=== PATIENT | male | born 1960 | race Caucasian/White ===

== ENCOUNTER 2017-10-19 07:23 | Inpatient (IN) | payer BC ==
[2017-10-19] MEDS ORDERED: IPRATROPIUM/ALBUTEROL 0.5-2.5 MG/3 ML AMPUL NEB ONE (07:38)
--- NOTE | 2017-10-19 07:44 | ER Document Report ---
ED Respiratory Problem - General Stated Complaint: BREATHING PROBLEMS Time Seen by Provider: 10/19/17 07:28 Mode of Arrival: Medic Information source: Patient - HPI Patient complains to provider of: Short of breath Notes: Patient is here with complaints of shortness of breath. Patient arrives via EMS while receiving a breathing treatment. Patient states that he has had a cough for approximately a week now. He is here for work. He states that he lives in [place]. He states that he has been seen in 2 other ERs throughout the week in [place] due to cough and shortness of breath. He states that he had a chest x-ray his last ER visit which she reports showed no acute findings. He was given a cough medicine. Patient denies any chest pain other than when he coughs. He complains of some left-sided abdominal pain where he has some bruising from coughing. He denies any trauma or injury to this area. He denies any nausea, vomiting, diarrhea. Reports that he may have had a fever over the last few days. He denies any chronic lung disease, or COPD. He does have a history of high cholesterol as well as hypertension. Is also supposed to be on a "water pill "that he cannot remember the name of that he has not been taking because he has been on the road and does not want to stop often to have to urinate. Patient was attempting to drive himself to the ER today, but states that he felt too bad so he called EMS. When EMS arrived, he was noted to have an O2 saturation of 86% on room air, he was given albuterol as well as a DuoNeb and Solu-Medrol. States that he is feeling better after these breathing treatments. He denies any cancer, leg pain, recent immobilization, history of DVT or PE. Patient denies any other complaints at this time. - Related Data Allergies/Adverse Reactions: No Known Allergies Allergy (Unverified 10/19/17 08:40) Past Medical History - Social History Smoking Status: Current Every Day Smoker Family History: Reviewed & Not Pertinent Review of Systems - Review of Systems -: Yes All other systems reviewed and negative Physical Exam - Vital signs Vitals: Pulse Ox 100 10/19/17 07:28 - Notes Notes: GENERAL: alert, cooperative, nontoxic, no distress. HEAD: normocephalic, atraumatic EYES: conjunctiva pink without discharge, no external redness or swelling. EARS: no external swelling, no external redness NOSE: atraumatic, no external swelling MOUTH/THROAT: mucous membranes moist and pink, posterior pharynx without erythema, swelling, exudate. No trismus or drooling. NECK: soft, supple, full range of motion, no meningismus. CHEST: Mild tachypnea, increased work of breathing. Expiratory wheezing with fair air movement throughout. CARDIAC: regular rate and rhythm, no murmur, normal capillary refill, normal pulses. Pitting edema to the bilateral lower extremities. No redness, no tenderness. ABDOMEN: Soft, nontender. Petechiae and old bruising noted to the left side of his abdomen. Minimal tenderness. BACK: full range of motion, no CVA tenderness. EXTREMITIES: full range of motion of all extremities. Pitting edema to the lower extremities. NEURO: alert and oriented x 3, no focal deficits, full range of motion of all extremities. PYSCH: appropriate mood, affect. Patient is cooperative. SKIN: pink, warm, dry, no rash. Course - Re-evaluation Re-evalutation: 10/19/17 10:48 Patient is nontoxic appearing. The patient has had a cough for about a week now and arrives via EMS with complaints of shortness of breath. According to EMS report, the patient was hypoxic at 85 on their arrival. He arrives here on oxygen getting breathing treatments. He has been satting in the mid 90s on 2 L nasal cannula since being in the emergency department. States that he is feeling better at this time. Scant white count of 13. Remainder of his labs are unremarkable. Lactate is normal. Heart rate and blood pressure a bit stabilized been in the emergency department. Chest x-ray shows a large left pleural effusion. Patient was noted to have some bruising and ecchymosis to the left lateral chest and left side of his abdomen. He denies any fall or injury. Due to the fact that he has this bruising with a large pleural effusion , a CT of the chest abdomen pelvis was ordered. Abdomen and pelvis are unremarkable. Chest shows a pneumonia with large pleural effusion and a soft tissue mass between the pleural tissue and chest wall. I discussed this with the radiologist, she does not believe that this is blood or hemorrhage. Patient was given Zithromax and Rocephin. Blood cultures have been obtained. This point the patient will be admitted to the hospital for further evaluation and contacted the hospitalist, I am awaiting a return phone call for acceptance. 10/19/17 11:08 Patient accepted by hospitalist for admission. - Vital Signs Vital signs: Temp Pulse Resp BP Pulse Ox 17 142/70 H 94 10/19/17 10:02 10/19/17 10:02 10/19/17 10:02 - Laboratory Result Diagrams: 10/19/17 07:45 10/19/17 07:45 Laboratory results interpreted by me: 10/19/17 10/19/17 07:45 07:45 WBC 13.6 H Absolute Neutrophils 9.4 H Absolute Monocytes 1.5 H Chloride 94 L Carbon Dioxide 39 H Glucose 129 H - Diagnostic Test Radiology reviewed: Image reviewed, Reports reviewed - Chest x-ray shows large pleural effusion on the left. CT chest abdomen pelvis shows pneumonia with large pleural effusion and soft tissue mass in the left pleural space. - EKG Interpretation by Me EKG shows normal: [place], Intervals, QRS Complexes, ST-T Waves Rate: Tachycardia When compared to previous EKG there are: Previous EKG unavailable Discharge - Discharge Clinical Impression: Pleural effusion, Hypoxia Pneumonia Qualifiers: Pneumonia type: due to unspecified organism Laterality: left Lung location: lower lobe of lung Qualified Code(s): J18.1 - Lobar pneumonia, unspecified organism Condition: Serious Disposition: ADMITTED INPATIENT Admitting Provider: Hospitalist - dr justo dunn Unit Admitted: Telemetry
--- NOTE | 2017-10-19 07:48 | EKG REPORT ---
SEVERITY:- OTHERWISE NORMAL ECG - SINUS TACHYCARDIA : Confirmed by: Miles Young MD 19-Oct-2017 07:47:37
--- NOTE | 2017-10-19 08:02 | RADIOLOGY REPORT (SQ) ---
EXAM DESCRIPTION: CHEST SINGLE VIEW CLINICAL HISTORY: 56 years Male, cough, sob, hypoxia, wheezing COMPARISON: None. NUMBER OF VIEWS/TECHNIQUE: 1/AP LIMITATIONS: None. FINDINGS: Moderate opacification of the left lower and mid hemithorax, small left aerated lung volume, normal cardiac silhouette, and intact bony thorax. IMPRESSION: Large left lower hemithoracic pneumonia/effusion.
[2017-10-19 08:10] LABS: ABSOLUTE BASOPHILS # (AUTO) 0.1 10^3/uL (0.0-0.2); ABSOLUTE EOSINOPHILS # (AUTO) 0.1 10^3/uL (0.0-0.6); ABSOLUTE LYMPHOCYTES (AUTO) 2.6 10^3/uL (0.5-4.7); ABSOLUTE MONOCYTES (AUTO) 1.5 10^3/uL (0.1-1.4); ABSOLUTE NEUT (AUTO) 9.4 10^3/uL (1.7-8.2); BASOPHILS % (AUTO) 0.4 % (0-2); EOSINOPHILS % (AUTO) 0.4 % (0-6); HEMATOCRIT 41.5 % (37.9-51.0); HEMOGLOBIN 13.8 g/dL (13.5-17.0); LYMPHOCYTES % (AUTO) 19.3 % (13-45); MEAN CORPUSCULAR HEMOGLOBIN 27.6 pg (27.0-33.4); MEAN CORPUSCULAR HGB CONC 33.2 g/dL (32.0-36.0); MEAN CORPUSCULAR VOLUME 83 fl (80-97); PLATELET COUNT 338 10^3/uL (150-450); RED CELL DISTRIBUTION WIDTH 13.8 % (11.5-14.0); SEGMENTED NEUTROPHILS % (AUTO) 68.9 % (42-78); TOTAL CELLS COUNTED % (AUTO) 100 %; WHITE BLOOD COUNT 13.6 10^3/uL (4.0-10.5)
[2017-10-19 08:11] LABS: ALANINE AMINOTRANSFERASE 59 U/L (21-72); ALBUMIN 3.5 g/dL (3.5-5.0); ALKALINE PHOSPHATASE 88 U/L (38-126); ASPARTATE AMINO TRANSFERASE 19 U/L (17-59); BILIRUBIN,DIRECT 0.2 mg/dL (0.0-0.4); BILIRUBIN,TOTAL 0.5 mg/dL (0.2-1.3); BLOOD UREA NITROGEN 16 mg/dL (7-20); CALCIUM 9.1 mg/dL (8.4-10.2); CHLORIDE 94 mmol/L (98-107); GLUCOSE 129 mg/dL (75-110); POTASSIUM 4.3 mmol/L (3.6-5.0); SODIUM 140.1 mmol/L (137-145); TOTAL PROTEIN 6.5 g/dL (6.3-8.2)
[2017-10-19] MEDS ORDERED: CEFTRIAXONE 1 GM/D5W RTU 50 ML IV ONE (08:14)
[2017-10-19] MEDS ORDERED: AZITHROMYCIN INJ 500 MG VIAL IV ONE (08:15)
[2017-10-19 08:19] LABS: ANION GAP 7 (5-19); CARBON DIOXIDE 39 mmol/L (22-30)
[2017-10-19 08:36] LABS: NT PRO BNP 41 pg/mL (5-900)
[2017-10-19 08:37] LABS: TROPONIN I < 0.012 ng/mL
[2017-10-19] MEDS ORDERED: CEFTRIAXONE INJ 1000 MG VIAL IV ONE (09:00)
--- NOTE | 2017-10-19 10:02 | RADIOLOGY REPORT (SQ) ---
EXAM DESCRIPTION: CT CHEST WITH; CT ABD/PELVIS WITH IV ONLY COMPLETED DATE/TIME: 10/19/2017 9:28 am REASON FOR STUDY: sob, left cp, abnorm cxr COMPARISON: AP chest 10/19/2017 CONTRAST TYPE AND DOSE: contrast/concentration: Isovue 370.00 mg/ml; Total Contrast Delivered: 98.9 ml; Total Saline Delivered: 48.1 ml RENAL FUNCTION: Creatinine 0.93 TECHNIQUE: CT scan of the chest performed using helical scanning technique with dynamic intravenous contrast injection. Images reviewed with lung, soft tissue and bone windows. Reconstructed coronal a nd sagittal MPR images reviewed. All images stored on PACS. CT scan of the abdomen and pelvis performed with intravenous and without oral contrastusing helical s rafa technique with dynamic intravenous contrast injection. Images reviewed with lung, soft tissu e and bone windows. Reconstructed coronal and sagittal MPR images reviewed. Delayed images for eval uation of the urinary system also acquired and evaluated. All images stored on PACS. All CT scanners at this facility use dose modulation, iterative reconstruction, and/or weight based d osing when appropriate to reduce radiation dose to as low as reasonably achievable (ALARA). [facility]: Dose Right [facility]: CareDose [facility]: Dose Right [facility]: Teradose 4D [facility]: [employer] RADIATION DOSE: CT Rad equipment meets quality standard of care and radiation dose reduction techniq ues were employed. CTDIvol: 21.1 mGy. DLP: 2714 mGy-cm. . LIMITATIONS: None. FINDINGS: CHEST: LUNGS AND PLEURA: A moderate-sized left pleural effusion is present with left lower lobe collapse and consolidation, atelectasis versus pneumonia. In the left lateral costophrenic sulcus anterior edge, a 5 x 5 cm soft tissue mass is present on axia l image 17 and coronal image 55. This mass extends into the soft tissues between the anterior left 6 th and 7th ribs. Right hemithorax unremarkable. HILAR AND MEDIASTINAL STRUCTURES: No identified masses or abnormal nodes. HEART AND VASCULAR STRUCTURES: No aneurysm or dissection. No central pulmonary emboli. No pericardi al effusion. HARDWARE: None. THYROID AND OTHER SOFT TISSUES: No masses. No adenopathy. BONES: No significant finding. OTHER: No other significant finding. ABDOMEN AND PELVIS: LIVER: Normal size. No masses. No dilated ducts. Diffuse fatty infiltration SPLEEN: Normal size. No focal lesions. PANCREAS: No masses. No significant calcifications. No adjacent inflammation or peripancreatic fluid collections. Pancreatic duct not dilated. GALLBLADDER: No identified stones by CT criteria. No inflammatory changes to suggest cholecystitis. ADRENAL GLANDS: No significant masses or asymmetry. RIGHT KIDNEY AND URETER: No solid masses. 5 cm right upper pole renal cortical cyst. Yonis 5 mm rig ht lower pole intrarenal nonobstructive stone. No hydronephrosis or hydroureter. LEFT KIDNEY AND URETER: No solid masses. 4 to 5 mm left lower pole intrarenal nonobstructive stone. No hydronephrosis or hydroureter. AORTA AND VESSELS: No aneurysm. No dissection. Renal arteries, SMA, celiac without stenosis. RETROPERITONEUM: No retroperitoneal adenopathy, hemorrhage or masses. BOWEL AND PERITONEAL CAVITY: No masses or inflammatory changes. No free fluid or peritoneal masses. APPENDIX: Normal. ABDOMINAL WALL: No masses. No hernias. PELVIS: No mass or free fluid. Normal bladder. BONES: No significant or acute findings. OTHER: No other significant finding. IMPRESSION: Moderate-sized left pleural effusion Left lower lobe collapse and consolidation Mass along the left lateral costophrenic sulcus Fatty liver Bilateral intrarenal nonobstructive kidney stones. NORMAL CT OF THE ABDOMEN AND PELVIS WITH ORAL AND INTRAVENOUS CONTRAST. TECHNICAL DOCUMENTATION: JOB ID: [id number] Quality ID # [id number]: Final reports with documentation of one or more dose reduction techniques (e.g., Au tomated exposure control, adjustment of the mA and/or kV according to patient size, use of iterative reconstruction technique) 2010 [employer]- All Rights Reserved Reading location - IP/workstation name: [facility]
[2017-10-19 11:31] LABS: INTERNATIONAL RATION (INR) 0.95; PROTHROMBIN TIME 13.1 SEC (11.4-15.4)
[2017-10-19 11:32] LABS: PARTIAL THROMBOPLASTIN TIME 30.5 SEC (23.5-35.8)
[2017-10-19] MEDS ORDERED: LEVALBUTEROL HCL NEB 0.63 MG/3 ML AMPUL NEB PRN (12:14)
[2017-10-19] MEDS ORDERED: ACETAMINOPHEN 325 MG TABLET PO PRN (12:14)
[2017-10-19] MEDS ORDERED: ONDANSETRON 4 MG TAB.RAPDIS PO PRN (12:14)
--- NOTE | 2017-10-19 12:36 | PDOC H&P ---
History of Present Illness Admission Date/PCP: 10/19/17 11:11 PCP: Dr. Gaines in [place] Patient complains of: Shortness of breath History of Present Illness: The patient is a 56-year-old gentleman with past medical history of Hypertension Hyperlipidemia He is a traveling construction laborer. He presented to the emergency room today complaining of worsening shortness of breath over the past 1 week. He has been coughing up yellowish green phlegm. Denies hemoptysis or recent weight loss. He has been treated to hospitals in the past week. The patient was evaluated at [facility] and received and took a course of antibiotics and cough suppressants. He became more short of breath today and EMS was called he was found to have sats of 85% was wheezing. He was treated with duo nebs and steroids and brought to the emergency room. Chest x-ray showed a large left-sided pleural effusion. CAT scan of the chest abdomen and pelvis was done. Left-sided pleural-based mass was seen along with a large left pleural effusion and left lower lobe lung collapse. He also has leukocytosis. He was treated with Rocephin and azithromycin and referred for admission. Denies sick contacts or exposure to tuberculosis in the past. He quit smoking approximately 30 years ago. Drinks occasional alcohol no illicit drug use. Outpatient medications: Lovastatin 20 mg daily Lisinopril 15 mg daily Multivitamin Vitamin D Aspirin 81 mg daily He wishes to be a full code. Healthcare power of relay engineer is his son Mr. Osiel Luciano phone #[phone]. He says he is allergic to penicillin it made him vomit as a child. No anaphylaxis Past Medical History Cardiac Medical History: Reports: Hyperlipidema, Hypertension Social History Smoking Status: Former Smoker Frequency of Alcohol Use: Occasional Drugs: None Hx Prescription Drug Abuse: No - Advance Directive Resuscitation Status: Full Code Family History Family History: Hypertension Parental Family History Reviewed: Yes Children Family History Reviewed: Yes Sibling(s) Family History Reviewed.: Yes Medication/Allergy Home Medications: Unobtainable [Unobtainable] 10/19/17 Allergies/Adverse Reactions: No Known Allergies Allergy (Unverified 10/19/17 08:40) Review of Systems Constitutional: PRESENT: fever(s). ABSENT: headache(s) Eyes: ABSENT: visual disturbances Ears: ABSENT: hearing changes Nose, Mouth, and Throat: ABSENT: sore throat Cardiovascular: PRESENT: dyspnea on exertion, edema. ABSENT: chest pain, palpitations Respiratory: PRESENT: cough, dyspnea. ABSENT: hemoptysis Gastrointestinal: ABSENT: abdominal pain, diarrhea, vomiting Genitourinary: ABSENT: dysuria Musculoskeletal: ABSENT: deformity Integumentary: ABSENT: rash Neurological: ABSENT: focal weakness Psychiatric: ABSENT: hallucinations Endocrine: ABSENT: heat intolerance Hematologic/Lymphatic: ABSENT: easy bruising Allergic/Immunologic: ABSENT: seasonal rhinorrhea Physical Exam Vital Signs: Temp Pulse Resp BP Pulse Ox 19 153/83 H 93 10/19/17 11:01 10/19/17 11:01 10/19/17 11:01 General appearance: PRESENT: obese Head exam: PRESENT: normocephalic Eye exam: PRESENT: PERRLA. ABSENT: scleral icterus Ear exam: PRESENT: normal external ear exam Mouth exam: PRESENT: moist Neck exam: ABSENT: tenderness, thyromegaly Respiratory exam: PRESENT: decreased breath sounds, rhonchi, symmetrical, unlabored Cardiovascular exam: PRESENT: RRR GI/Abdominal exam: PRESENT: normal bowel sounds, soft. ABSENT: tenderness Rectal exam: PRESENT: deferred Extremities exam: PRESENT: pedal edema. ABSENT: calf tenderness Musculoskeletal exam: PRESENT: normal inspection Neurological exam: PRESENT: alert, awake, oriented to person, oriented to place , oriented to time, oriented to situation Psychiatric exam: PRESENT: appropriate affect Skin exam: ABSENT: petechiae Results Impressions: Chest X-Ray 10/19/17 07:38 IMPRESSION: Large left lower hemithoracic pneumonia/effusion. Chest CT 10/19/17 08:04 IMPRESSION: Moderate-sized left pleural effusion Left lower lobe collapse and consolidation Mass along the left lateral costophrenic sulcus Fatty liver Bilateral intrarenal nonobstructive kidney stones. NORMAL CT OF THE ABDOMEN AND PELVIS WITH ORAL AND INTRAVENOUS CONTRAST. Abdomen/Pelvis CT 10/19/17 08:05 IMPRESSION: Moderate-sized left pleural effusion Left lower lobe collapse and consolidation Mass along the left lateral costophrenic sulcus Fatty liver Bilateral intrarenal nonobstructive kidney stones. NORMAL CT OF THE ABDOMEN AND PELVIS WITH ORAL AND INTRAVENOUS CONTRAST. Assessment & Plan - Diagnosis (1) Pleural effusion Is this a current diagnosis for this admission?: Yes Plan: Large left pleural effusion. ? parapneumonic vs malignant. Pulmonology consult. He will need a thoracentesis with Gram stain culture and cytology. He has been started on antibiotics. (2) Hypoxia Is this a current diagnosis for this admission?: Yes Plan: Due to pleural effusion and pneumonia. Supplemental oxygen. (3) Pneumonia Qualifiers: Pneumonia type: due to unspecified organism Laterality: left Lung location: lower lobe of lung Qualified Code(s): J18.1 - Lobar pneumonia, unspecified organism Is this a current diagnosis for this admission?: Yes Plan: Sputum cultures. Levaquin and Rocephin. (4) Hypertension Is this a current diagnosis for this admission?: Yes Plan: Continue lisinopril. (5) Hyperlipidemia Is this a current diagnosis for this admission?: Yes Plan: Continue lovastatin and aspirin - Time Time Spent: Greater than 70 Minutes - Inpatient Certification Medical Necessity: Need for IV Antibiotics, Risk of Complication if Not Cared For in Hospital
[2017-10-19 13:23] LABS: APPEARANCE,URINE CLEAR; BILIRUBIN,URINE NEGATIVE (NEGATIVE); COLOR,URINE YELLOW; GLUCOSE, URINE NEGATIVE (NEGATIVE); KETONES,URINE NEGATIVE (NEGATIVE); LEUKOCYTE ESTERASE,URINE NEGATIVE (NEGATIVE); NITRITE,URINE NEGATIVE (NEGATIVE); PROTEIN,URINE NEGATIVE (NEGATIVE); URINE SPECIFIC GRAVITY 1.027; UROBILINOGEN,URINE NEGATIVE mg/dL (<2.0)
[2017-10-19] MEDS ORDERED: LEVOFLOXACIN 750 MG TABLET PO ONE (13:30)
[2017-10-19 13:55] LABS: URINE AMPHETAMINES SCREEN NEGATIVE; URINE BARBITURATES SCREEN NEGATIVE; URINE BENZODIAZEPINES SCREEN NEGATIVE; URINE COCAINE SCREEN NEGATIVE; URINE MARIJUANA (THC) SCREEN NEGATIVE; URINE METHADONE SCREEN NEGATIVE; URINE PHENCYCLIDINE SCREEN NEGATIVE
[2017-10-19] MEDS: LEVALBUTEROL HCL NEB 1.25 MG/3 ML AMPUL NEB SCH ×2 (14:20→19:57)
[2017-10-19] MEDS ORDERED: LIDOCAINE 1% INJ-PF (10 MG/ML) 30 ML SDV ONE (15:34)
--- NOTE | 2017-10-19 16:29 | RADIOLOGY REPORT (SQ) ---
EXAM DESCRIPTION: CHEST SINGLE VIEW COMPLETED DATE/TIME: 10/19/2017 4:16 pm REASON FOR STUDY: S/P LT THORACENTESIS COMPARISON: CT chest abdomen pelvis 10/19/2017 EXAM PARAMETERS: NUMBER OF VIEWS: One view. TECHNIQUE: Single frontal radiographic view of the chest acquired. RADIATION DOSE: NA LIMITATIONS: None. FINDINGS: LUNGS AND PLEURA: This film is immediately post thoracentesis left chest with removal of 7 00 mL of bloody fluid. No pneumothorax. Left lower lobe consolidation atelectasis versus pneumonia. Right hemithorax unremarkable. MEDIASTINUM AND HILAR STRUCTURES: No masses. Contour normal. HEART AND VASCULAR STRUCTURES: Moderate cardiomegaly BONES: No acute findings. HARDWARE: None in the chest. OTHER: No other significant finding. IMPRESSION: This film is post left thoracentesis with removal of 700 mL of bloody fluid from the lef t chest. No pneumothorax. Left lower lobe consolidation atelectasis versus pneumonia. TECHNICAL DOCUMENTATION: JOB ID: [id number] [employer]- All Rights Reserved Reading location - IP/workstation name: [email or web address]
--- NOTE | 2017-10-19 16:32 | RADIOLOGY REPORT (SQ) ---
EXAM DESCRIPTION: U/S THORACENTESIS WITH IMAGING COMPLETED DATE/TIME: 10/19/2017 4:23 pm REASON FOR STUDY: L pleural effusion COMPARISON: CT chest abdomen and pelvis 10/19/2017 LIMITATIONS: None. PROCEDURE: Procedure, risks, benefit, and alternative explained to patient who then gave written con sent. The posterior left chest wall was marked using ultrasound guidance. A time-out was called for correct marking verification. Chest prepped and draped using sterile technique. Local anesthesia ac hieved using 9 ml of 1% lidocaine injection. A 6fr Safe-T- Centesis set was introduced into the left pleural space. Fluid was aspirated. The catheter was removed and the entry site was covered with s terile bandage. No immediate complications noted. Fluid was sent for testing as per Dr. Wright. Po st procedure chest x-ray was obtained, demonstrating no pneumothorax. This is dictated separately. Images acquired during the procedure were stored on PACS. FINDINGS: ENTRY SITE: Left posterior chest FLUID VOLUME: 700 mL FLUID ANALYSIS: Bloody fluid sent for testing OTHER: No pneumothorax on post procedure chest x-ray dictated separately IMPRESSION: SUCCESSFUL THORACENTESIS USING ULTRASOUND GUIDANCE. COMMENT: Patient medication list reviewed: Yes- Quality ID# [id number]:Eligible professional attests to doc umenting in the medical record they obtained, updated, or reviewed the patient's current medications. TECHNICAL DOCUMENTATION: JOB ID: [id number] [employer]- All Rights Reserved Reading location - IP/workstation name: [email or web address]
[2017-10-19 17:25] LABS: FLUID COLOR RED; FLUID TYPE PLEURAL; FLUID VISCOSITY LIQUID
--- NOTE | 2017-10-19 17:47 | PDOC CONSULTATION ---
Consultation Consult Date: 10/19/17 Attending physician:: MARIETTA ROBLES Consult reason:: l pleural effusion /l lung mass History of Present Illness Admission Date/PCP: 10/19/17 11:11 History of Present Illness: NATALIE HERNANDEZ is a 56 year old male Subsequently found to have a large left-sided pleural effusionPresents to the ED with increasing shortness of breath as well as a soft tissue mass patient's illness was preceded by multiple hospitalizations since several surgeries for shortness of breath he was told he had a normal chest x-ray and was given cough medicine and sent on how this time he presented the emergency room with increasing cough productive of yellow phlegm and increasing shortness of breath at this time of his presentation he was hypoxemic and was started on oxygen. Agustín. 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 He has no pets and frequently travels around the [facility]. He denies angina-like chest pain however he says for the last 3 or 4 years slept upright in a recliner he denies PND but admits to occasional nocturnal cough and chronic edema he has admits to snoring restless sleep nocturia 3-4 times per night unrestful sleep and excessive daytime somnolence Past Medical History Cardiac Medical History: Reports: Hyperlipidema, Hypertension Denies: Atrial Fibrillation, Pulmonary Embolism Pulmonary Medical History: Denies: Asthma, Intubation EENT Medical History: Denies: Cataracts, Ears, Nose Neurological Medical History: Denies: Multiple Sclerosis, Seizures Endocrine Medical History: Reports: Obesity Denies: Diabetes Mellitus Type 1, Diabetes Mellitus Type 2, Hyperthyroidism, Hypothyroidism Renal/ Medical History: Reports: Nephrolithiasis Denies: End Stage Renal Disease Malignancy Medical History: Denies: Liver Cancer, Lung Cancer GI Medical History: Denies: Cirrhosis, Crohn's Disease, Hepatitis, Peptic Ulcer Disease, Ulcerative Colitis Musculoskeltal Medical History: Denies: Fibromyalgia Psychiatric Medical History: Denies: Dementia, Depression Traumatic Medical History: Denies: Gunshot Wound, Stab Wound, Traumatic Brain Injury Hematology: Denies: Hemophilia, Sickle Cell Disease Infectious Medical History: Denies: HIV Social History Information Source: Patient, [facility] Records 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 Smoking Status: Current Every Day Smoker Cigarettes Packs Per Day: 1.5 Number of Years Smokin Passive smoke exposure as: Both Hx Recreational Drug Use: No Hx Prescription Drug Abuse: No Do you have pets?: No Have you had any respiratory illnesses as a child?: No Have you been exposed to any sick contacts recently?: No Have you had any recent respiratory illnesses?: Yes Have you travelled outside of [place] in the past 12 months?: Yes Family History Family History: CAD, Hyperlipidemia, Hypertension, Malignancy Parental Family History Reviewed: Yes Children Family History Reviewed: Yes Sibling(s) Family History Reviewed.: Yes Medication/Allergy Home Medications: Aspirin [Ecotrin 81 mg EC Tablet] 81 mg PO DAILY 10/19/17 Cholecalciferol (Vitamin D3) [Vitamin D3] 2,000 unit PO DAILY 10/19/17 Lisinopril [Prinivil] 20 mg PO DAILY 10/19/17 Lovastatin [Mevacor] 20 mg PO DAILY 10/19/17 Multivitamin [Tab-A-Ana (Multiple Vitamin) Tablet] 1 tab PO DAILY 10/19/17 Allergies/Adverse Reactions: No Known Allergies Allergy (Unverified 10/19/17 08:40) Review of Systems Constitutional: PRESENT: weight gain. ABSENT: anorexia, chills, fatigue, fever( s), headache(s), weakness Eyes: ABSENT: visual disturbances Ears: ABSENT: hearing changes Nose, Mouth, and Throat: ABSENT: mouth pain, sore throat Cardiovascular: PRESENT: edema, orthropnea. ABSENT: palpitations Respiratory: PRESENT: cough, dyspnea. ABSENT: hemoptysis Gastrointestinal: ABSENT: abdominal pain, bloating, dysphagia, heartburn, melena Genitourinary: PRESENT: nocturia. ABSENT: dysuria, hematuria Musculoskeletal: ABSENT: deformity, joint swelling Integumentary: ABSENT: pruritus, rash Neurological: ABSENT: abnormal gait, abnormal movements, abnormal speech, confusion, focal weakness, frequent falls, lack of coordination, memory loss Psychiatric: ABSENT: hallucinations, homidical ideation, suicidal ideation Endocrine: ABSENT: cold intolerance, heat intolerance, polydipsia, polyuria Hematologic/Lymphatic: ABSENT: easy bruising Allergic/Immunologic: PRESENT: seasonal rhinorrhea Physical Exam Vital Signs: Temp Pulse Resp BP Pulse Ox 19 153/83 H 93 10/19/17 11:01 10/19/17 11:01 10/19/17 11:01 General appearance: PRESENT: no acute distress, cooperative, disheveled, morbidly obese Head exam: PRESENT: atraumatic, normocephalic Eye exam: PRESENT: conjunctiva pale. ABSENT: nystagmus, periorbital swelling, scleral icterus Mouth exam: PRESENT: dry mucosa, neck supple, tongue midline Neck exam: ABSENT: carotid bruit, JVD, lymphadenopathy, thyromegaly, tracheal deviation, tracheostomy Respiratory exam: PRESENT: chest wall tenderness - Left lateral chest wall there is some ecchymosis, decreased breath sounds, prolonged expiratory phas, rales, rhonchi, unlabored, wheezes. ABSENT: retraction, stridor, tachypnea Cardiovascular exam: PRESENT: RRR, +S1, +S2, tachycardia Pulses: PRESENT: normal radial pulses GI/Abdominal exam: PRESENT: diminished bowel sounds, soft Extremities exam: PRESENT: other - Pretibial and pedal edema+4. ABSENT: clubbing, joint swelling Musculoskeletal exam: ABSENT: deformity, dislocation Neurological exam: PRESENT: alert, awake Skin exam: PRESENT: dry, warm Results Impressions: Chest X-Ray 10/19/17 07:38 IMPRESSION: Large left lower hemithoracic pneumonia/effusion. Chest CT 10/19/17 08:04 IMPRESSION: Moderate-sized left pleural effusion Left lower lobe collapse and consolidation Mass along the left lateral costophrenic sulcus Fatty liver Bilateral intrarenal nonobstructive kidney stones. NORMAL CT OF THE ABDOMEN AND PELVIS WITH ORAL AND INTRAVENOUS CONTRAST. Abdomen/Pelvis CT 10/19/17 08:05 IMPRESSION: Moderate-sized left pleural effusion Left lower lobe collapse and consolidation Mass along the left lateral costophrenic sulcus Fatty liver Bilateral intrarenal nonobstructive kidney stones. NORMAL CT OF THE ABDOMEN AND PELVIS WITH ORAL AND INTRAVENOUS CONTRAST. Assessment & Plan - Diagnosis (1) Uncontrolled daytime somnolence Is this a current diagnosis for this admission?: Yes Plan: Will need to have a sleep study scheduled at the time of discharge (2) Sleeps in sitting position due to orthopnea Is this a current diagnosis for this admission?: Yes Plan: MUGA study as I do not believe body habitus will permit good acoustic windows for an echocardiogram (3) Hypertension Is this a current diagnosis for this admission?: Yes (4) Hypoxia Is this a current diagnosis for this admission?: Yes Plan: Supplemental oxygen (5) Pleural effusion Is this a current diagnosis for this admission?: Yes Plan: Thoracentesis has been requested ultrasound guidance (6) Pneumonia Qualifiers: Pneumonia type: due to unspecified organism Laterality: left Lung location: lower lobe of lung Qualified Code(s): J18.1 - Lobar pneumonia, unspecified organism Is this a current diagnosis for this admission?: Yes (7) Soft tissue mass Is this a current diagnosis for this admission?: Yes Plan: Consider CT-guided needle biopsy
[2017-10-19] MEDS: LACTOBACILLUS ACIDOPHILUS 250 MG TAB PO SCH (18:24)
--- NOTE | 2017-10-19 18:44 | RADIOLOGY REPORT (SQ) ---
EXAM DESCRIPTION: CHEST SINGLE VIEW COMPLETED DATE/TIME: 10/19/2017 6:22 pm REASON FOR STUDY: S/P LT THORACENTESIS- 2 HOUR FILM COMPARISON: 10/19/2017 at 1612 hours. EXAM PARAMETERS: NUMBER OF VIEWS: One view. TECHNIQUE: Single frontal radiographic view of the chest acquired. RADIATION DOSE: NA LIMITATIONS: None. FINDINGS: LUNGS AND PLEURA: No pneumothorax 2 hours after thoracentesis. Left pleural effusion with left basilar density unchanged. Right lung clear. MEDIASTINUM AND HILAR STRUCTURES: No masses. Contour normal. HEART AND VASCULAR STRUCTURES: Heart normal in size. Normal vasculature. BONES: No acute findings. HARDWARE: None in the chest. OTHER: No other significant finding. IMPRESSION: STABLE APPEARANCE OF THE CHEST. NO PNEUMOTHORAX 2 HOURS AFTER THORACENTESIS. TECHNICAL DOCUMENTATION: JOB ID: [id number] [employer]- All Rights Reserved Reading location - IP/workstation name: [email or web address]
[2017-10-19] MEDS: FAMOTIDINE 20 MG TABLET PO SCH (21:00)
[2017-10-19] MEDS: GUAIFENESIN 600 MG TABLET.SA PO SCH (21:00)
[2017-10-20 06:42] LABS: ABSOLUTE BASOPHILS # (AUTO) 0.1 10^3/uL (0.0-0.2); ABSOLUTE LYMPHOCYTES (AUTO) 2.2 10^3/uL (0.5-4.7); ABSOLUTE MONOCYTES (AUTO) 1.4 10^3/uL (0.1-1.4); ABSOLUTE NEUT (AUTO) 10.2 10^3/uL (1.7-8.2); BASOPHILS % (AUTO) 0.8 % (0-2); EOSINOPHILS % (AUTO) 0.2 % (0-6); HEMATOCRIT 38.3 % (37.9-51.0); HEMOGLOBIN 12.7 g/dL (13.5-17.0); LYMPHOCYTES % (AUTO) 15.6 % (13-45); MEAN CORPUSCULAR HEMOGLOBIN 27.4 pg (27.0-33.4); MEAN CORPUSCULAR HGB CONC 33.1 g/dL (32.0-36.0); MEAN CORPUSCULAR VOLUME 83 fl (80-97); MONOCYTES % (AUTO) 10.2 % (3-13); PLATELET COUNT 312 10^3/uL (150-450); RED BLOOD COUNT 4.63 10^6/uL (4.35-5.55); RED CELL DISTRIBUTION WIDTH 13.9 % (11.5-14.0); SEGMENTED NEUTROPHILS % (AUTO) 73.2 % (42-78); TOTAL CELLS COUNTED % (AUTO) 100 %
[2017-10-20 07:04] LABS: ALANINE AMINOTRANSFERASE 50 U/L (21-72); ALBUMIN 3.4 g/dL (3.5-5.0); ALKALINE PHOSPHATASE 70 U/L (38-126); ANION GAP 7 (5-19); ASPARTATE AMINO TRANSFERASE 19 U/L (17-59); BILIRUBIN,DIRECT 0.3 mg/dL (0.0-0.4); BILIRUBIN,TOTAL 0.6 mg/dL (0.2-1.3); BLOOD UREA NITROGEN 19 mg/dL (7-20); CALCIUM 8.9 mg/dL (8.4-10.2); CARBON DIOXIDE 36 mmol/L (22-30); CHLORIDE 96 mmol/L (98-107); CHOLESTEROL 150.58 mg/dL (0-200); GLUCOSE 116 mg/dL (75-110); PHOSPHORUS 4.2 mg/dL (2.5-4.5); POTASSIUM 4.5 mmol/L (3.6-5.0); SODIUM 138.8 mmol/L (137-145); TOTAL PROTEIN 6.3 g/dL (6.3-8.2); TRIGLYCERIDES 71 mg/dL (<150)
[2017-10-20 07:15] LABS: DIRECT LDL 93 mg/dL (<100)
[2017-10-20] MEDS: LEVALBUTEROL HCL NEB 1.25 MG/3 ML AMPUL NEB SCH ×3 (09:15→20:50)
[2017-10-20] MEDS: LEVALBUTEROL HCL NEB 1.25 MG/3 ML AMPUL NEB PRN (09:15)
[2017-10-20] MEDS ORDERED: CEFTRIAXONE 1 GM/D5W RTU 1 GM/50 ML RTUPB IV SCH (10:00)
[2017-10-20 10:05] LABS: ARTERIAL BLOOD BASE EXCESS 11.6 mmol/L; ARTERIAL BLOOD HCO3 38.3 mmol/L (20-26); ARTERIAL BLOOD O2 SATURATION 95.3 % (94-98); ARTERIAL BLOOD PCO2 59.7 mmHg (35-45); ARTERIAL BLOOD PH 7.43 (7.35-7.45); ARTERIAL BLOOD PO2 77.2 mmHg (80-100); ARTERIAL BLOOD TOTAL CO2 40.1 mmol/L (23-27)
[2017-10-20 10:07] LABS: ARTERIAL BLOOD FIO2 4L
--- NOTE | 2017-10-20 10:18 | RADIOLOGY REPORT (SQ) ---
EXAM DESCRIPTION: CHEST SINGLE VIEW COMPLETED DATE/TIME: 10/20/2017 9:51 am REASON FOR STUDY: L lung mass COMPARISON: 10/19/2017 NUMBER OF VIEWS: One view. TECHNIQUE: Single frontal radiographic image of the chest acquired. LIMITATIONS: None. FINDINGS: LUNGS AND PLEURA: Known left lower lung mass. Unchanged left pleural effusion. No pneumo thorax. MEDIASTINUM AND HEART: Stable heart size and mediastinal structures. BONY STRUCTURES: No acute findings. HARDWARE: None. OTHER: No other significant finding. IMPRESSION: No significant change. No pneumothorax. TECHNICAL DOCUMENTATION: JOB ID: [id number] Reading location - IP/workstation name: [email or web address]
--- NOTE | 2017-10-20 11:55 | RADIOLOGY REPORT (SQ) ---
EXAM DESCRIPTION: NM MUGA REST COMPLETED DATE/TIME: 10/20/2017 11:44 am REASON FOR STUDY: chf COMPARISON: CT chest 09/27/2017 RADIONUCLIDE AND DOSE: 28.1 mCi technetium 99m labeled red blood cells The route of agent administration: Intravenous TECHNIQUE: Following administration of the radionuclide, gated images of the heart are obtained in t hree projections. Left ventricular functional analysis performed. LIMITATIONS: None. FINDINGS: LEFT VENTRICULAR FUNCTION: EJECTION FRACTION: 79%. END-DIASTOLIC VOLUME: 75 mL. END-SYSTOLIC VOLUME: 25 mL. WALL MOTION: No focal wall motion abnormalities. OTHER: No other significant finding. IMPRESSION: NORMAL CARDIAC MUGA STUDY. NORMAL LEFT VENTRICULAR EJECTION FRACTION, 79%. TECHNICAL DOCUMENTATION: JOB ID: [id number] [employer]- All Rights Reserved Reading location - IP/workstation name: [email or web address]
[2017-10-20] MEDS: GUAIFENESIN 600 MG TABLET.SA PO SCH ×2 (12:45→21:53)
[2017-10-20] MEDS: ENOXAPARIN SODIUM INJ 40 MG/0.4 ML DISP.SYRIN SUBCUT SCH (12:45)
[2017-10-20] MEDS: LEVOFLOXACIN 750 MG TABLET PO SCH (12:45)
[2017-10-20] MEDS: FAMOTIDINE 20 MG TABLET PO SCH ×2 (12:46→21:53)
[2017-10-20] MEDS: CEFTRIAXONE SODIUM 1,000 MG in DEXTROSE 5%-WATER 50 ML IV SCH (12:46)
[2017-10-20] MEDS: LACTOBACILLUS ACIDOPHILUS 250 MG TAB PO SCH ×2 (12:46→18:51)
[2017-10-20] MEDS: DOCUSATE SODIUM 100 MG CAPSULE PO SCH (12:50)
--- NOTE | 2017-10-20 16:20 | PDOC PROGRESS REPORT ---
Subjective Progress Note for:: 10/20/17 Subjective:: I definitely feel better Reason For Visit: ACUTE HYPOXIC RESPIRATORY FAILURE,LARGE LEFT-SIDED Physical Exam Vital Signs: Temp Pulse Resp BP Pulse Ox 98.1 F 92 16 134/74 H 98 10/20/17 09:23 10/20/17 09:23 10/20/17 09:23 10/20/17 09:23 10/20/17 09:23 Intake & Output 10/19/17 10/20/17 10/21/17 06:59 06:59 06:59 Intake Total 0 Output Total 300 Balance -300 Weight 181.2 kg General appearance: PRESENT: no acute distress, cooperative, disheveled, morbidly obese Head exam: PRESENT: atraumatic, normocephalic Eye exam: PRESENT: conjunctiva pale, EOMI. ABSENT: nystagmus, periorbital swelling, scleral icterus Mouth exam: PRESENT: dry mucosa, neck supple, tongue midline Neck exam: ABSENT: carotid bruit, JVD, lymphadenopathy, thyromegaly, tracheal deviation, tracheostomy Respiratory exam: PRESENT: decreased breath sounds, prolonged expiratory phas, rales, rhonchi, unlabored. ABSENT: retraction, stridor, tachypnea Cardiovascular exam: PRESENT: RRR, +S1, +S2 Pulses: PRESENT: normal radial pulses GI/Abdominal exam: PRESENT: diminished bowel sounds, soft Extremities exam: ABSENT: calf tenderness, clubbing, joint swelling Musculoskeletal exam: ABSENT: deformity, dislocation Neurological exam: PRESENT: awake Psychiatric exam: PRESENT: normal mood Skin exam: PRESENT: dry, warm Results Laboratory Results: 10/20/17 05:36 10/20/17 05:36 10/19/17 10/19/17 10/19/17 12:38 13:00 14:47 WBC RBC Hgb Hct MCV MCH MCHC RDW Plt Count Seg Neutrophils % Lymphocytes % Monocytes % Eosinophils % Basophils % Absolute Neutrophils Absolute Lymphocytes Absolute Monocytes Absolute Eosinophils Absolute Basophils Carbonic Acid HCO3/H2CO3 Ratio ABG pH ABG pCO2 ABG pO2 ABG HCO3 ABG O2 Saturation ABG Base Excess FiO2 Sodium Potassium Chloride Carbon Dioxide Anion Gap BUN Creatinine Est GFR ( Amer) Est GFR (Non-Af Amer) Glucose Calcium Phosphorus Magnesium Total Bilirubin AST ALT Alkaline Phosphatase Total Protein Cancelled 6.0 L Albumin Triglycerides Cholesterol LDL Cholesterol Direct VLDL Cholesterol HDL Cholesterol TSH Urine Color YELLOW Urine Appearance CLEAR Urine pH 6.0 Ur Specific [place] 1.027 Urine Protein NEGATIVE Urine Glucose (UA) NEGATIVE Urine Ketones NEGATIVE Urine Blood NEGATIVE Urine Nitrite NEGATIVE Ur Leukocyte Esterase NEGATIVE Urine WBC (Auto) 2 Urine RBC (Auto) 1 Fluid Type Fluid Source Fluid Color Fluid Appearance Fluid Viscosity Fluid WBC Fluid RBC 10/19/17 10/20/17 10/20/17 15:50 05:36 05:36 WBC 14.0 H RBC 4.63 Hgb 12.7 L Hct 38.3 MCV 83 MCH 27.4 MCHC 33.1 RDW 13.9 Plt Count 312 Seg Neutrophils % 73.2 Lymphocytes % 15.6 Monocytes % 10.2 Eosinophils % 0.2 Basophils % 0.8 Absolute Neutrophils 10.2 H Absolute Lymphocytes 2.2 Absolute Monocytes 1.4 Absolute Eosinophils 0.0 Absolute Basophils 0.1 Carbonic Acid HCO3/H2CO3 Ratio ABG pH ABG pCO2 ABG pO2 ABG HCO3 ABG O2 Saturation ABG Base Excess FiO2 Sodium 138.8 Potassium 4.5 Chloride 96 L Carbon Dioxide 36 H Anion Gap 7 BUN 19 Creatinine 0.85 Est GFR ( Amer) > 60 Est GFR (Non-Af Amer) > 60 Glucose 116 H Calcium 8.9 Phosphorus 4.2 Magnesium 2.3 Total Bilirubin 0.6 AST 19 ALT 50 Alkaline Phosphatase 70 Total Protein 6.3 Albumin 3.4 L Triglycerides 71 Cholesterol 150.58 LDL Cholesterol Direct 93 VLDL Cholesterol 14.0 HDL Cholesterol 45 TSH Urine Color Urine Appearance Urine pH Ur Specific [place] Urine Protein Urine Glucose (UA) Urine Ketones Urine Blood Urine Nitrite Ur Leukocyte Esterase Urine WBC (Auto) Urine RBC (Auto) Fluid Type PLEURAL Fluid Source Fluid Color RED Fluid Appearance Fluid Viscosity LIQUID Fluid WBC 963 Fluid RBC [id number] 10/20/17 10/20/17 05:36 09:41 WBC RBC Hgb Hct MCV MCH MCHC RDW Plt Count Seg Neutrophils % Lymphocytes % Monocytes % Eosinophils % Basophils % Absolute Neutrophils Absolute Lymphocytes Absolute Monocytes Absolute Eosinophils Absolute Basophils Carbonic Acid 1.80 H HCO3/H2CO3 Ratio 21:1 ABG pH 7.43 ABG pCO2 59.7 H ABG pO2 77.2 L ABG HCO3 38.3 H ABG O2 Saturation 95.3 ABG Base Excess 11.6 FiO2 4L Sodium Potassium Chloride Carbon Dioxide Anion Gap BUN Creatinine Est GFR ( Amer) Est GFR (Non-Af Amer) Glucose Calcium Phosphorus Magnesium Total Bilirubin AST ALT Alkaline Phosphatase Total Protein Albumin Triglycerides Cholesterol LDL Cholesterol Direct VLDL Cholesterol HDL Cholesterol TSH 1.41 Urine Color Urine Appearance Urine pH Ur Specific [place] Urine Protein Urine Glucose (UA) Urine Ketones Urine Blood Urine Nitrite Ur Leukocyte Esterase Urine WBC (Auto) Urine RBC (Auto) Fluid Type Fluid Source Fluid Color Fluid Appearance Fluid Viscosity Fluid WBC Fluid RBC 10/20/17 05:36 NT-Pro-B Natriuret Pep 29 Impressions: Chest CT 10/19/17 08:04 IMPRESSION: Moderate-sized left pleural effusion Left lower lobe collapse and consolidation Mass along the left lateral costophrenic sulcus Fatty liver Bilateral intrarenal nonobstructive kidney stones. NORMAL CT OF THE ABDOMEN AND PELVIS WITH ORAL AND INTRAVENOUS CONTRAST. Abdomen/Pelvis CT 10/19/17 08:05 IMPRESSION: Moderate-sized left pleural effusion Left lower lobe collapse and consolidation Mass along the left lateral costophrenic sulcus Fatty liver Bilateral intrarenal nonobstructive kidney stones. NORMAL CT OF THE ABDOMEN AND PELVIS WITH ORAL AND INTRAVENOUS CONTRAST. Thoracentesis Ultrasound 10/19/17 12:11 IMPRESSION: SUCCESSFUL THORACENTESIS USING ULTRASOUND GUIDANCE. Chest X-Ray 10/20/17 06:00 IMPRESSION: No significant change. No pneumothorax. Assessment & Plan - Diagnosis (1) Uncontrolled daytime somnolence Is this a current diagnosis for this admission?: Yes Plan: Will need to have a sleep study scheduled at the time of discharge (2) Sleeps in sitting position due to orthopnea Is this a current diagnosis for this admission?: Yes Plan: MUGA study as I do not believe body habitus will permit good acoustic windows for an echocardiogram (3) Hypertension Is this a current diagnosis for this admission?: Yes (4) Hypoxia Is this a current diagnosis for this admission?: Yes Plan: Supplemental oxygen (5) Pleural effusion Is this a current diagnosis for this admission?: Yes Plan: Thoracentesis has been requested ultrasound guidance (6) Pneumonia Qualifiers: Pneumonia type: due to unspecified organism Laterality: left Lung location: lower lobe of lung Qualified Code(s): J18.1 - Lobar pneumonia, unspecified organism Is this a current diagnosis for this admission?: Yes (7) Soft tissue mass Is this a current diagnosis for this admission?: Yes Plan: Consider CT-guided needle biopsy
--- NOTE | 2017-10-20 18:47 | PDOC PROGRESS REPORT ---
Subjective Progress Note for:: 10/20/17 Subjective:: This gentleman was admitted with difficulty breathing associated with cough with yellowish sputum. He has received outpatient treatment with antibiotics but still with worsening symptoms. He was found to have a likely parapneumonic effusion of the left side on arrival in the emergency room and CT scan revealed a left-sided pleural-based mass with a large left pleural effusion and left lower lung collapse. Patient states that he is feeling better today and his breathing is improved. He has been seen by the geodetic surveyor Reason For Visit: ACUTE HYPOXIC RESPIRATORY FAILURE,LARGE LEFT-SIDED Physical Exam Vital Signs: Temp Pulse Resp BP Pulse Ox 98.6 F 103 H 20 123/61 95 10/20/17 16:38 10/20/17 16:38 10/20/17 16:38 10/20/17 16:38 10/20/17 16:58 Pulse Oximeter Continuous Start: 10/20/17 10: 36 Freq: RTQ4 Status: Active Document 10/20/17 16:58 CBR (Rec: 10/20/17 17:50 CBR [email or web address]) Pulse Oximetry Assessment Oxygen Saturation (92-100) 95 Oxygen Flow Rate (L/min) 4 Oxygen Delivery Method Nasal Cannula Equipment Usage Equipment in Use Continuous SpO2 Machine # [id number] Intake & Output 10/19/17 10/20/17 10/21/17 06:59 06:59 06:59 Intake Total 0 1000 Output Total 300 Balance -300 1000 Weight 181.2 kg General appearance: PRESENT: no acute distress, morbidly obese Head exam: PRESENT: atraumatic Eye exam: PRESENT: conjunctiva pink, EOMI, PERRLA. ABSENT: scleral icterus Ear exam: PRESENT: normal external ear exam Mouth exam: PRESENT: moist, tongue midline Neck exam: ABSENT: carotid bruit, JVD, lymphadenopathy, thyromegaly Respiratory exam: PRESENT: clear to auscultation brian. ABSENT: rales, rhonchi, wheezes Cardiovascular exam: PRESENT: RRR. ABSENT: diastolic murmur, rubs, systolic murmur GI/Abdominal exam: PRESENT: normal bowel sounds, soft. ABSENT: distended, guarding, mass, organolmegaly, rebound, tenderness Rectal exam: PRESENT: deferred Extremities exam: PRESENT: full ROM. ABSENT: calf tenderness, clubbing, pedal edema Neurological exam: PRESENT: alert, awake, oriented to person, oriented to place , oriented to time, oriented to situation, CN II-XII grossly intact. ABSENT: motor sensory deficit Psychiatric exam: PRESENT: appropriate affect Skin exam: PRESENT: dry, intact, warm. ABSENT: cyanosis, rash Results Laboratory Results: 10/20/17 05:36 10/20/17 05:36 10/20/17 10/20/17 10/20/17 05:36 05:36 05:36 WBC 14.0 H RBC 4.63 Hgb 12.7 L Hct 38.3 MCV 83 MCH 27.4 MCHC 33.1 RDW 13.9 Plt Count 312 Seg Neutrophils % 73.2 Lymphocytes % 15.6 Monocytes % 10.2 Eosinophils % 0.2 Basophils % 0.8 Absolute Neutrophils 10.2 H Absolute Lymphocytes 2.2 Absolute Monocytes 1.4 Absolute Eosinophils 0.0 Absolute Basophils 0.1 Carbonic Acid HCO3/H2CO3 Ratio ABG pH ABG pCO2 ABG pO2 ABG HCO3 ABG O2 Saturation ABG Base Excess FiO2 Sodium 138.8 Potassium 4.5 Chloride 96 L Carbon Dioxide 36 H Anion Gap 7 BUN 19 Creatinine 0.85 Est GFR ( Amer) > 60 Est GFR (Non-Af Amer) > 60 Glucose 116 H Calcium 8.9 Phosphorus 4.2 Magnesium 2.3 Total Bilirubin 0.6 AST 19 ALT 50 Alkaline Phosphatase 70 Total Protein 6.3 Albumin 3.4 L Triglycerides 71 Cholesterol 150.58 LDL Cholesterol Direct 93 VLDL Cholesterol 14.0 HDL Cholesterol 45 TSH 1.41 10/20/17 09:41 WBC RBC Hgb Hct MCV MCH MCHC RDW Plt Count Seg Neutrophils % Lymphocytes % Monocytes % Eosinophils % Basophils % Absolute Neutrophils Absolute Lymphocytes Absolute Monocytes Absolute Eosinophils Absolute Basophils Carbonic Acid 1.80 H HCO3/H2CO3 Ratio 21:1 ABG pH 7.43 ABG pCO2 59.7 H ABG pO2 77.2 L ABG HCO3 38.3 H ABG O2 Saturation 95.3 ABG Base Excess 11.6 FiO2 4L Sodium Potassium Chloride Carbon Dioxide Anion Gap BUN Creatinine Est GFR ( Amer) Est GFR (Non-Af Amer) Glucose Calcium Phosphorus Magnesium Total Bilirubin AST ALT Alkaline Phosphatase Total Protein Albumin Triglycerides Cholesterol LDL Cholesterol Direct VLDL Cholesterol HDL Cholesterol TSH 10/20/17 05:36 NT-Pro-B Natriuret Pep 29 Impressions: Chest CT 10/19/17 08:04 IMPRESSION: Moderate-sized left pleural effusion Left lower lobe collapse and consolidation Mass along the left lateral costophrenic sulcus Fatty liver Bilateral intrarenal nonobstructive kidney stones. NORMAL CT OF THE ABDOMEN AND PELVIS WITH ORAL AND INTRAVENOUS CONTRAST. Abdomen/Pelvis CT 10/19/17 08:05 IMPRESSION: Moderate-sized left pleural effusion Left lower lobe collapse and consolidation Mass along the left lateral costophrenic sulcus Fatty liver Bilateral intrarenal nonobstructive kidney stones. NORMAL CT OF THE ABDOMEN AND PELVIS WITH ORAL AND INTRAVENOUS CONTRAST. Thoracentesis Ultrasound 10/19/17 12:11 IMPRESSION: SUCCESSFUL THORACENTESIS USING ULTRASOUND GUIDANCE. Chest X-Ray 10/20/17 06:00 IMPRESSION: No significant change. No pneumothorax. MUGA 10/20/17 08:00 IMPRESSION: NORMAL CARDIAC MUGA STUDY. NORMAL LEFT VENTRICULAR EJECTION FRACTION, 79%. Assessment & Plan - Time Time Spent with patient: 15-24 minutes Medications reviewed and adjusted accordingly: Yes Anticipated discharge: Home - Inpatient Certification Based on my medical assessment, after consideration of the patient's comorbidities, presenting symptoms, or acuity I expect that the services needed warrant INPATIENT care.: Yes Medical Necessity: Need Close Monitoring Due to Risk of Patient Decompensation, Need for IV Antibiotics - Plan Summary Plan Summary: Acute hypoxemic respiratory failure likely multifactorial including pneumonia, pleural effusion and lung mass. Patient is scheduled for thoracentesis today and will follow up on pathology results. 2. Pneumonia, community-acquired, possible postobstructive pneumonia of the left lower lung. Patient is on Levaquin and Rocephin. We will follow the cultures 3. Hypertension currently on lisinopril 4. Hyperlipidemia currently on atorvastatin and aspirin 5. Soft tissue mass status post CT-guided needle biopsy. Will follow up on results. 6. Patient will need a sleep study as see if it is the profile of obstructive sleep apnea
[2017-10-21] MEDS: LEVALBUTEROL HCL NEB 1.25 MG/3 ML AMPUL NEB SCH ×3 (08:40→20:18)
[2017-10-21] MEDS: ENOXAPARIN SODIUM INJ 40 MG/0.4 ML DISP.SYRIN SUBCUT SCH (10:09)
[2017-10-21] MEDS: FAMOTIDINE 20 MG TABLET PO SCH ×2 (10:10→21:07)
[2017-10-21] MEDS: GUAIFENESIN 600 MG TABLET.SA PO SCH ×2 (10:10→21:08)
[2017-10-21] MEDS: LACTOBACILLUS ACIDOPHILUS 250 MG TAB PO SCH ×2 (10:10→18:21)
[2017-10-21] MEDS: CEFTRIAXONE SODIUM 1,000 MG in DEXTROSE 5%-WATER 50 ML IV SCH (10:10)
[2017-10-21] MEDS: DOCUSATE SODIUM 100 MG CAPSULE PO SCH (10:13)
[2017-10-21] MEDS ORDERED: ONDANSETRON 4 MG TAB.RAPDIS PO PRN (11:30)
--- NOTE | 2017-10-21 11:36 | PDOC PROGRESS REPORT ---
Subjective Progress Note for:: 10/21/17 Subjective:: I definitely feel better Reason For Visit: ACUTE HYPOXIC RESPIRATORY FAILURE,LARGE LEFT-SIDED Physical Exam Vital Signs: Temp Pulse Resp BP Pulse Ox 98.6 F 97 16 144/62 H 94 10/21/17 09:35 10/21/17 09:35 10/21/17 09:35 10/21/17 09:35 10/21/17 09:35 Pulse Oximeter Continuous Start: 10/20/17 10: 36 Freq: RTQ4 Status: Active Document 10/21/17 08:40 CW (Rec: 10/21/17 10:52 [facility] [email or web address]) Pulse Oximetry Assessment Oxygen Saturation (92-100) 96 Oxygen Flow Rate (L/min) 3 Oxygen Delivery Method Nasal Cannula Equipment Usage Equipment in Use Continuous SpO2 Machine # 13 Intake & Output 10/20/17 10/21/17 10/22/17 06:59 06:59 06:59 Intake Total 0 1722 Output Total 300 Balance -300 1722 Weight 181.2 kg 150 kg General appearance: PRESENT: no acute distress, cooperative, disheveled, morbidly obese Head exam: PRESENT: atraumatic, normocephalic Eye exam: PRESENT: conjunctiva pink, EOMI. ABSENT: nystagmus, periorbital swelling, scleral icterus Mouth exam: PRESENT: dry mucosa, neck supple, tongue midline Neck exam: PRESENT: carotid bruit. ABSENT: tracheal deviation, tracheostomy Respiratory exam: PRESENT: decreased breath sounds, prolonged expiratory phas, rales, rhonchi, unlabored. ABSENT: retraction, stridor, tachypnea Cardiovascular exam: PRESENT: RRR, +S1, +S2 Pulses: PRESENT: normal radial pulses GI/Abdominal exam: PRESENT: diminished bowel sounds, soft. ABSENT: tenderness Extremities exam: PRESENT: full ROM. ABSENT: calf tenderness, clubbing, joint swelling Musculoskeletal exam: PRESENT: ambulatory, full ROM. ABSENT: deformity, dislocation Neurological exam: PRESENT: alert, awake Psychiatric exam: PRESENT: normal mood Skin exam: PRESENT: dry, warm - [id number] Results Laboratory Results: 10/20/17 05:36 10/20/17 05:36 10/20/17 05:36 NT-Pro-B Natriuret Pep 29 Impressions: Chest CT 10/19/17 08:04 IMPRESSION: Moderate-sized left pleural effusion Left lower lobe collapse and consolidation Mass along the left lateral costophrenic sulcus Fatty liver Bilateral intrarenal nonobstructive kidney stones. NORMAL CT OF THE ABDOMEN AND PELVIS WITH ORAL AND INTRAVENOUS CONTRAST. Abdomen/Pelvis CT 10/19/17 08:05 IMPRESSION: Moderate-sized left pleural effusion Left lower lobe collapse and consolidation Mass along the left lateral costophrenic sulcus Fatty liver Bilateral intrarenal nonobstructive kidney stones. NORMAL CT OF THE ABDOMEN AND PELVIS WITH ORAL AND INTRAVENOUS CONTRAST. Thoracentesis Ultrasound 10/19/17 12:11 IMPRESSION: SUCCESSFUL THORACENTESIS USING ULTRASOUND GUIDANCE. Chest X-Ray 10/20/17 06:00 IMPRESSION: No significant change. No pneumothorax. MUGA 10/20/17 08:00 IMPRESSION: NORMAL CARDIAC MUGA STUDY. NORMAL LEFT VENTRICULAR EJECTION FRACTION, 79%. Assessment & Plan - Diagnosis (1) Uncontrolled daytime somnolence Is this a current diagnosis for this admission?: Yes Plan: Will need to have a sleep study scheduled at the time of discharge (2) Sleeps in sitting position due to orthopnea Is this a current diagnosis for this admission?: Yes Plan: good EF per MUGA (3) Hypertension Is this a current diagnosis for this admission?: Yes (4) Hypoxia Is this a current diagnosis for this admission?: Yes (5) Pleural effusion Is this a current diagnosis for this admission?: Yes Plan: thoracentesis result tricling in (6) Pneumonia Qualifiers: Pneumonia type: due to unspecified organism Laterality: left Lung location: lower lobe of lung Qualified Code(s): J18.1 - Lobar pneumonia, unspecified organism Is this a current diagnosis for this admission?: Yes (7) Soft tissue mass Is this a current diagnosis for this admission?: Yes Plan: c/o tenderness
[2017-10-21] MEDS: LEVOFLOXACIN 750 MG TABLET PO SCH (11:46)
--- NOTE | 2017-10-21 13:15 | PDOC PROGRESS REPORT ---
Subjective Progress Note for:: 10/21/17 Subjective:: This gentleman was admitted with difficulty breathing associated with cough with yellowish sputum. He has received outpatient treatment with antibiotics but still with worsening symptoms. He was found to have a likely parapneumonic effusion of the left side on arrival in the emergency room and CT scan revealed a left-sided pleural-based mass with a large left pleural effusion and left lower lung collapse. Patient states that he is feeling better today and his breathing is improved. He has been seen by the transmission tester Reason For Visit: ACUTE HYPOXIC RESPIRATORY FAILURE,LARGE LEFT-SIDED Physical Exam Vital Signs: Temp Pulse Resp BP Pulse Ox 98.4 F 91 12 139/73 H 98 10/21/17 12:00 10/21/17 12:00 10/21/17 12:00 10/21/17 12:00 10/21/17 12:00 Pulse Oximeter Continuous Start: 10/20/17 10: 36 Freq: RTQ4 Status: Active Document 10/21/17 12:00 [facility] (Rec: 10/21/17 12:29 [facility] [email or web address]) Pulse Oximetry Assessment Oxygen Saturation (92-100) 97 Oxygen Flow Rate (L/min) 3 Equipment Usage Equipment in Use Continuous SpO2 Machine # 13 Intake & Output 10/20/17 10/21/17 10/22/17 06:59 06:59 06:59 Intake Total 0 1722 Output Total 300 Balance -300 1722 Weight 181.2 kg 150 kg General appearance: PRESENT: no acute distress, morbidly obese, well-developed, well-nourished Head exam: PRESENT: atraumatic, normocephalic Eye exam: PRESENT: conjunctiva pink, EOMI, PERRLA. ABSENT: scleral icterus Ear exam: PRESENT: normal external ear exam Mouth exam: PRESENT: moist, tongue midline Neck exam: ABSENT: carotid bruit, JVD, lymphadenopathy, thyromegaly Respiratory exam: PRESENT: decreased breath sounds, rales, rhonchi, unlabored, wheezes Cardiovascular exam: PRESENT: RRR. ABSENT: diastolic murmur, rubs, systolic murmur Pulses: PRESENT: normal dorsalis pedis pul Vascular exam: PRESENT: normal capillary refill GI/Abdominal exam: PRESENT: normal bowel sounds, soft. ABSENT: distended, guarding, mass, organolmegaly, rebound, tenderness Rectal exam: PRESENT: deferred Extremities exam: PRESENT: full ROM. ABSENT: calf tenderness, clubbing, pedal edema Neurological exam: PRESENT: alert, awake, oriented to person, oriented to place , oriented to time, oriented to situation, CN II-XII grossly intact. ABSENT: motor sensory deficit Psychiatric exam: PRESENT: appropriate affect, normal mood. ABSENT: homicidal ideation, suicidal ideation Skin exam: PRESENT: dry, intact, rash, other - Bruises Left ribcage, no crepitus , no swelling. ABSENT: cyanosis Results Laboratory Results: 10/20/17 05:36 10/20/17 05:36 10/20/17 05:36 NT-Pro-B Natriuret Pep 29 Impressions: Chest CT 10/19/17 08:04 IMPRESSION: Moderate-sized left pleural effusion Left lower lobe collapse and consolidation Mass along the left lateral costophrenic sulcus Fatty liver Bilateral intrarenal nonobstructive kidney stones. NORMAL CT OF THE ABDOMEN AND PELVIS WITH ORAL AND INTRAVENOUS CONTRAST. Abdomen/Pelvis CT 10/19/17 08:05 IMPRESSION: Moderate-sized left pleural effusion Left lower lobe collapse and consolidation Mass along the left lateral costophrenic sulcus Fatty liver Bilateral intrarenal nonobstructive kidney stones. NORMAL CT OF THE ABDOMEN AND PELVIS WITH ORAL AND INTRAVENOUS CONTRAST. Thoracentesis Ultrasound 10/19/17 12:11 IMPRESSION: SUCCESSFUL THORACENTESIS USING ULTRASOUND GUIDANCE. Chest X-Ray 10/20/17 06:00 IMPRESSION: No significant change. No pneumothorax. MUGA 10/20/17 08:00 IMPRESSION: NORMAL CARDIAC MUGA STUDY. NORMAL LEFT VENTRICULAR EJECTION FRACTION, 79%. Assessment & Plan - Time Time Spent with patient: 15-24 minutes Medications reviewed and adjusted accordingly: Yes Anticipated discharge: Home Within: within 72 hours - Inpatient Certification Based on my medical assessment, after consideration of the patient's comorbidities, presenting symptoms, or acuity I expect that the services needed warrant INPATIENT care.: Yes - Plan Summary Plan Summary: 1. Acute hypoxemic respiratory failure likely multifactorial including pneumonia , pleural effusion and lung mass. He is s/p thoracentesis with symptomatic relief. Will follow up on aspirate results 2. Pneumonia, community-acquired, possible postobstructive pneumonia of the left lower lung. Patient is on Levaquin and Rocephin. We will follow the cultures and de-escalate antibiotics as appropriate 3. Hypertension currently on lisinopril 4. Hyperlipidemia currently on atorvastatin and aspirin 5. Soft tissue mass status post CT-guided needle biopsy. Will follow up on results. 6. Patient will need a sleep study as see if it is the profile of obstructive sleep apnea 7. Gram stain is yielding 1+ polys with 1+ gram-positive rods and 1+ gram- positive cocci in pairs and the rest of the curry cultures are negative
[2017-10-22 06:24] LABS: HEMATOCRIT 36.7 % (37.9-51.0); HEMOGLOBIN 12.1 g/dL (13.5-17.0); MEAN CORPUSCULAR HEMOGLOBIN 27.6 pg (27.0-33.4); MEAN CORPUSCULAR HGB CONC 33.1 g/dL (32.0-36.0); MEAN CORPUSCULAR VOLUME 83 fl (80-97); PLATELET COUNT 291 10^3/uL (150-450); RED BLOOD COUNT 4.41 10^6/uL (4.35-5.55); RED CELL DISTRIBUTION WIDTH 13.6 % (11.5-14.0); WHITE BLOOD COUNT 7.6 10^3/uL (4.0-10.5)
[2017-10-22 06:25] LABS: ABSOLUTE BASOPHILS # (AUTO) 0.1 10^3/uL (0.0-0.2); ABSOLUTE EOSINOPHILS # (AUTO) 0.1 10^3/uL (0.0-0.6); ABSOLUTE LYMPHOCYTES (AUTO) 1.7 10^3/uL (0.5-4.7); ABSOLUTE MONOCYTES (AUTO) 0.9 10^3/uL (0.1-1.4); ABSOLUTE NEUT (AUTO) 4.9 10^3/uL (1.7-8.2); BASOPHILS % (AUTO) 0.9 % (0-2); EOSINOPHILS % (AUTO) 1.5 % (0-6); LYMPHOCYTES % (AUTO) 21.7 % (13-45); MONOCYTES % (AUTO) 12.4 % (3-13); SEGMENTED NEUTROPHILS % (AUTO) 63.5 % (42-78); TOTAL CELLS COUNTED % (AUTO) 100 %
[2017-10-22 06:35] LABS: BLOOD UREA NITROGEN 17 mg/dL (7-20); CALCIUM 8.8 mg/dL (8.4-10.2); CHLORIDE 97 mmol/L (98-107); GLUCOSE 102 mg/dL (75-110); POTASSIUM 5.1 mmol/L (3.6-5.0); SODIUM 142.6 mmol/L (137-145)
[2017-10-22 06:45] LABS: ANION GAP 9 (5-19)
[2017-10-22 06:49] LABS: CARBON DIOXIDE 37 mmol/L (22-30)
[2017-10-22] MEDS: LEVALBUTEROL HCL NEB 1.25 MG/3 ML AMPUL NEB SCH ×3 (08:41→20:23)
[2017-10-22] MEDS: LACTOBACILLUS ACIDOPHILUS 250 MG TAB PO SCH ×2 (11:03→17:29)
[2017-10-22] MEDS: FAMOTIDINE 20 MG TABLET PO SCH ×2 (11:03→21:32)
[2017-10-22] MEDS: GUAIFENESIN 600 MG TABLET.SA PO SCH ×2 (11:03→21:32)
[2017-10-22] MEDS: ENOXAPARIN SODIUM INJ 40 MG/0.4 ML DISP.SYRIN SUBCUT SCH (11:04)
[2017-10-22] MEDS: CEFTRIAXONE SODIUM 1,000 MG in DEXTROSE 5%-WATER 50 ML IV SCH (11:05)
[2017-10-22] MEDS: DOCUSATE SODIUM 100 MG CAPSULE PO SCH (11:11)
[2017-10-22] MEDS: LEVOFLOXACIN 750 MG TABLET PO SCH (11:11)
[2017-10-22] MEDS ORDERED: GUAIFENESIN/CODEINE PHOS 100-10 MG/ 5 ML UDC PO PRN (15:45)
--- NOTE | 2017-10-22 15:45 | PDOC PROGRESS REPORT ---
Subjective Progress Note for:: 10/22/17 Subjective:: This gentleman was admitted with difficulty breathing associated with cough with yellowish sputum. He has received outpatient treatment with antibiotics but still with worsening symptoms. He was found to have a likely parapneumonic effusion of the left side on arrival in the emergency room and CT scan revealed a left-sided pleural-based mass with a large left pleural effusion and left lower lung collapse. Patient states that he is feeling better today and his breathing is improved. He has been seen by the assembly line worker and comments noted. Patient has a Soft tissue mass that has yet to be biopsied. Will schedule for next week as appropriate Reason For Visit: ACUTE HYPOXIC RESPIRATORY FAILURE,LARGE LEFT-SIDED Physical Exam Vital Signs: Temp Pulse Resp BP Pulse Ox 98.6 F 89 16 152/78 H 94 10/22/17 12:00 10/22/17 14:00 10/22/17 12:00 10/22/17 12:00 10/22/17 12:00 Pulse Oximeter Continuous Start: 10/20/17 10: 36 Freq: RTQ4 Status: Active Document 10/22/17 08:41 HCR (Rec: 10/22/17 11:02 HCR [email or web address]) Pulse Oximetry Assessment Oxygen Saturation (92-100) 95 Oxygen Flow Rate (L/min) 2 Oxygen Delivery Method Nasal Cannula Equipment Usage Equipment in Use Continuous SpO2 Machine # 13 Intake & Output 10/21/17 10/22/17 10/23/17 06:59 06:59 06:59 Intake Total 1722 1767 Balance 1722 1767 Weight 150 kg 151.1 kg 151.1 kg General appearance: PRESENT: no acute distress, obese, well-developed, well- nourished Head exam: PRESENT: atraumatic, normocephalic Eye exam: PRESENT: conjunctiva pink, EOMI, PERRLA. ABSENT: scleral icterus Ear exam: PRESENT: normal external ear exam Mouth exam: PRESENT: moist, tongue midline Neck exam: ABSENT: carotid bruit, JVD, lymphadenopathy, thyromegaly Respiratory exam: PRESENT: decreased breath sounds, rales, rhonchi, wheezes Cardiovascular exam: PRESENT: RRR. ABSENT: diastolic murmur, rubs, systolic murmur Pulses: PRESENT: normal dorsalis pedis pul Vascular exam: PRESENT: normal capillary refill GI/Abdominal exam: PRESENT: normal bowel sounds, soft. ABSENT: distended, guarding, mass, organolmegaly, rebound, tenderness Rectal exam: PRESENT: deferred Extremities exam: PRESENT: full ROM. ABSENT: calf tenderness, clubbing, pedal edema Neurological exam: PRESENT: alert, awake, oriented to person, oriented to place , oriented to time, oriented to situation, CN II-XII grossly intact. ABSENT: motor sensory deficit Psychiatric exam: PRESENT: appropriate affect, normal mood. ABSENT: homicidal ideation, suicidal ideation Skin exam: PRESENT: cyanosis, intact, rash, warm, other - soft tissue contusion along L chest wall and abdominal area, stabl Results Laboratory Results: 10/22/17 04:53 10/22/17 04:53 10/22/17 10/22/17 04:53 04:53 WBC 7.6 RBC 4.41 Hgb 12.1 L Hct 36.7 L MCV 83 MCH 27.6 MCHC 33.1 RDW 13.6 Plt Count 291 Seg Neutrophils % 63.5 Lymphocytes % 21.7 Monocytes % 12.4 Eosinophils % 1.5 Basophils % 0.9 Absolute Neutrophils 4.9 Absolute Lymphocytes 1.7 Absolute Monocytes 0.9 Absolute Eosinophils 0.1 Absolute Basophils 0.1 Sodium 142.6 Potassium 5.1 H Chloride 97 L Carbon Dioxide 37 H Anion Gap 9 BUN 17 Creatinine 0.96 Est GFR ( Amer) > 60 Est GFR (Non-Af Amer) > 60 Glucose 102 Calcium 8.8 10/20/17 09:28 Sputum Gram Stain - Final 10/20/17 09:28 Sputum Sputum Culture - Final NORMAL BRITTNI 10/19/17 15:50 Pleural Fluid - Left Pleural Effusion Fungal Smear - Final 10/19/17 15:50 Pleural Fluid - Left Pleural Effusion Fungal Smear - Final 10/19/17 15:50 Pleural Fluid - Left Pleural Effusion AFB Smear Concentration - Final 10/19/17 15:50 Pleural Fluid - Left Pleural Effusion Acid Fast Bacilli Smear - Final 10/20/17 05:36 NT-Pro-B Natriuret Pep 29 Impressions: Chest CT 10/19/17 08:04 IMPRESSION: Moderate-sized left pleural effusion Left lower lobe collapse and consolidation Mass along the left lateral costophrenic sulcus Fatty liver Bilateral intrarenal nonobstructive kidney stones. NORMAL CT OF THE ABDOMEN AND PELVIS WITH ORAL AND INTRAVENOUS CONTRAST. Abdomen/Pelvis CT 10/19/17 08:05 IMPRESSION: Moderate-sized left pleural effusion Left lower lobe collapse and consolidation Mass along the left lateral costophrenic sulcus Fatty liver Bilateral intrarenal nonobstructive kidney stones. NORMAL CT OF THE ABDOMEN AND PELVIS WITH ORAL AND INTRAVENOUS CONTRAST. Thoracentesis Ultrasound 10/19/17 12:11 IMPRESSION: SUCCESSFUL THORACENTESIS USING ULTRASOUND GUIDANCE. Chest X-Ray 10/20/17 06:00 IMPRESSION: No significant change. No pneumothorax. MUGA 10/20/17 08:00 IMPRESSION: NORMAL CARDIAC MUGA STUDY. NORMAL LEFT VENTRICULAR EJECTION FRACTION, 79%. Assessment & Plan - Time Time Spent with patient: 15-24 minutes Medications reviewed and adjusted accordingly: Yes Anticipated discharge: Home Within: within 72 hours - Inpatient Certification Based on my medical assessment, after consideration of the patient's comorbidities, presenting symptoms, or acuity I expect that the services needed warrant INPATIENT care.: Yes Medical Necessity: Need for IV Antibiotics - Plan Summary Plan Summary: 1. Acute hypoxemic respiratory failure likely multifactorial including pneumonia , pleural effusion and lung mass. He is s/p thoracentesis with symptomatic relief. aspirate results essentially negative 2. Pneumonia, community-acquired, possible postobstructive pneumonia of the left lower lung. Patient is on Levaquin and Rocephin. DC Rocephin 3. Hypertension currently on lisinopril 4. Hyperlipidemia currently on atorvastatin and aspirin 5. Soft tissue mass status -Patient needs CT-guided needle biopsy. Will need to schedule this next week 6. Patient will need a sleep study as see if it is the profile of obstructive sleep apnea 7. Sputum culture and Bronchial washing culture negative
[2017-10-23] MEDS: LEVALBUTEROL HCL NEB 1.25 MG/3 ML AMPUL NEB SCH ×3 (08:46→20:09)
[2017-10-23] MEDS: ENOXAPARIN SODIUM INJ 40 MG/0.4 ML DISP.SYRIN SUBCUT SCH (09:37)
[2017-10-23] MEDS: GUAIFENESIN 600 MG TABLET.SA PO SCH ×2 (09:38→21:17)
[2017-10-23] MEDS: DOCUSATE SODIUM 100 MG CAPSULE PO SCH (09:38)
[2017-10-23] MEDS: FAMOTIDINE 20 MG TABLET PO SCH ×2 (09:38→21:18)
[2017-10-23] MEDS: LACTOBACILLUS ACIDOPHILUS 250 MG TAB PO SCH ×2 (09:38→18:15)
[2017-10-23] MEDS: LEVOFLOXACIN 750 MG TABLET PO SCH (11:35)
--- NOTE | 2017-10-23 13:58 | PDOC PROGRESS REPORT ---
Subjective Subjective:: This gentleman was admitted with difficulty breathing associated with cough with yellowish sputum. He has received outpatient treatment with antibiotics but still with worsening symptoms. He was found to have a likely parapneumonic effusion of the left side on arrival in the emergency room and CT scan revealed a left-sided pleural-based mass with a large left pleural effusion and left lower lung collapse. Patient states that he is feeling better today and his breathing is improved. He has been seen by the tumbler operator and comments noted. Patient has a Soft tissue mass that has yet to be biopsied. Will discuss with IR and schedule as appropriate Reason For Visit: ACUTE HYPOXIC RESPIRATORY FAILURE,LARGE LEFT-SIDED Physical Exam Vital Signs: Temp Pulse Resp BP Pulse Ox 98.2 F 92 20 141/90 H 89 L 10/23/17 12:49 10/23/17 12:49 10/23/17 12:49 10/23/17 12:49 10/23/17 12:49 Pulse Oximeter Continuous Start: 10/20/17 10: 36 Freq: RTQ4 Status: Active Document 10/23/17 11:42 TPO (Rec: 10/23/17 11:43 TPO [email or web address]) Pulse Oximetry Assessment Oxygen Saturation (92-100) 93 Oxygen Flow Rate (L/min) 1 Oxygen Delivery Method Nasal Cannula Fraction of Inspired Oxygen (FIO2) 24 Equipment Usage Equipment in Use Continuous SpO2 Machine # 13 Intake & Output 10/22/17 10/23/17 10/24/17 06:59 06:59 06:59 Intake Total 1767 1738 Balance 1767 1738 Weight 151.1 kg 985 kg 151.3 kg General appearance: PRESENT: no acute distress, morbidly obese Head exam: PRESENT: atraumatic Neck exam: ABSENT: carotid bruit, JVD, lymphadenopathy, thyromegaly Respiratory exam: PRESENT: crackles, decreased breath sounds, rhonchi, unlabored. ABSENT: accessory muscle use, chest wall tenderness Cardiovascular exam: PRESENT: RRR. ABSENT: diastolic murmur, rubs, systolic murmur Pulses: PRESENT: normal dorsalis pedis pul GI/Abdominal exam: PRESENT: normal bowel sounds, soft. ABSENT: distended, guarding, mass, organolmegaly, rebound, tenderness Rectal exam: PRESENT: deferred Extremities exam: PRESENT: full ROM. ABSENT: calf tenderness, clubbing, pedal edema Musculoskeletal exam: PRESENT: ambulatory Neurological exam: PRESENT: alert, awake, oriented to person, oriented to place , oriented to time, oriented to situation Psychiatric exam: PRESENT: appropriate affect, normal mood. ABSENT: homicidal ideation, suicidal ideation Results Laboratory Results: 10/22/17 04:53 10/22/17 04:53 10/19/17 15:50 Pleural Fluid - Left Pleural Effusion Gram Stain - Final 10/19/17 15:50 Pleural Fluid - Left Pleural Effusion Body Fluid Culture - Final NO AEROBIC OR ANAEROBIC ORGANISMS RECOVERED 10/20/17 09:28 Sputum Gram Stain - Final 10/20/17 09:28 Sputum Sputum Culture - Final NORMAL BRITTNI 10/20/17 05:36 NT-Pro-B Natriuret Pep 29 Impressions: Chest CT 10/19/17 08:04 IMPRESSION: Moderate-sized left pleural effusion Left lower lobe collapse and consolidation Mass along the left lateral costophrenic sulcus Fatty liver Bilateral intrarenal nonobstructive kidney stones. NORMAL CT OF THE ABDOMEN AND PELVIS WITH ORAL AND INTRAVENOUS CONTRAST. Abdomen/Pelvis CT 10/19/17 08:05 IMPRESSION: Moderate-sized left pleural effusion Left lower lobe collapse and consolidation Mass along the left lateral costophrenic sulcus Fatty liver Bilateral intrarenal nonobstructive kidney stones. NORMAL CT OF THE ABDOMEN AND PELVIS WITH ORAL AND INTRAVENOUS CONTRAST. Thoracentesis Ultrasound 10/19/17 12:11 IMPRESSION: SUCCESSFUL THORACENTESIS USING ULTRASOUND GUIDANCE. Chest X-Ray 10/20/17 06:00 IMPRESSION: No significant change. No pneumothorax. MUGA 10/20/17 08:00 IMPRESSION: NORMAL CARDIAC MUGA STUDY. NORMAL LEFT VENTRICULAR EJECTION FRACTION, 79%. Assessment & Plan - Time Time Spent with patient: 15-24 minutes Medications reviewed and adjusted accordingly: Yes Anticipated discharge: Home Within: within 72 hours - Inpatient Certification Based on my medical assessment, after consideration of the patient's comorbidities, presenting symptoms, or acuity I expect that the services needed warrant INPATIENT care.: Yes Medical Necessity: Risk of Complication if Not Cared For in Hospital - Plan Summary Plan Summary: 1. Acute hypoxemic respiratory failure likely multifactorial including pneumonia , pleural effusion and lung mass. He is s/p thoracentesis with symptomatic relief. aspirate results essentially negative He is still hypoxemic and although ok at rest, he drops to 86% on ambulation. He will need home Oxygen at discharge if not improved 2. Pneumonia, community-acquired, possible postobstructive pneumonia of the left lower lung. Patient is on Levaquin. 3. Hypertension currently controlled on lisinopril 4. Hyperlipidemia currently on atorvastatin and aspirin 5. Soft tissue mass status -Patient needs CT-guided needle biopsy. Will need to discuss and schedule as appropriate next week 6. Patient will need a sleep study as he fits profile of obstructive sleep apnea. Will d/w Dr. Wright 7. Sputum culture and Bronchial washing culture negative 8. Disposition- home mid week
[2017-10-24] MEDS: LEVALBUTEROL HCL NEB 1.25 MG/3 ML AMPUL NEB SCH ×3 (07:53→20:27)
[2017-10-24] MEDS: ENOXAPARIN SODIUM INJ 40 MG/0.4 ML DISP.SYRIN SUBCUT SCH (10:30)
[2017-10-24] MEDS: FAMOTIDINE 20 MG TABLET PO SCH ×2 (10:31→22:17)
[2017-10-24] MEDS: GUAIFENESIN 600 MG TABLET.SA PO SCH ×2 (10:31→22:17)
[2017-10-24] MEDS: LACTOBACILLUS ACIDOPHILUS 250 MG TAB PO SCH ×2 (10:31→17:30)
[2017-10-24] MEDS: DOCUSATE SODIUM 100 MG CAPSULE PO SCH (10:32)
[2017-10-24] MEDS: LEVOFLOXACIN 750 MG TABLET PO SCH (11:54)
[2017-10-24] MEDS ORDERED: LISINOPRIL 10 MG TABLET PO ONE (20:30)
[2017-10-24] MEDS ORDERED: HYDROCHLOROTHIAZIDE 12.5 MG CAPSULE PO ONE (22:15)
[2017-10-25 06:44] LABS: ABSOLUTE EOSINOPHILS # (AUTO) 0.2 10^3/uL (0.0-0.6); ABSOLUTE LYMPHOCYTES (AUTO) 1.4 10^3/uL (0.5-4.7); ABSOLUTE MONOCYTES (AUTO) 0.7 10^3/uL (0.1-1.4); ABSOLUTE NEUT (AUTO) 4.3 10^3/uL (1.7-8.2); BASOPHILS % (AUTO) 0.7 % (0-2); EOSINOPHILS % (AUTO) 2.8 % (0-6); HEMATOCRIT 38.2 % (37.9-51.0); HEMOGLOBIN 12.6 g/dL (13.5-17.0); LYMPHOCYTES % (AUTO) 20.7 % (13-45); MEAN CORPUSCULAR HEMOGLOBIN 27.5 pg (27.0-33.4); MEAN CORPUSCULAR HGB CONC 32.9 g/dL (32.0-36.0); MEAN CORPUSCULAR VOLUME 84 fl (80-97); MONOCYTES % (AUTO) 11.2 % (3-13); PLATELET COUNT 316 10^3/uL (150-450); RED BLOOD COUNT 4.56 10^6/uL (4.35-5.55); SEGMENTED NEUTROPHILS % (AUTO) 64.6 % (42-78); TOTAL CELLS COUNTED % (AUTO) 100 %; WHITE BLOOD COUNT 6.6 10^3/uL (4.0-10.5)
[2017-10-25 06:56] LABS: ANION GAP 9 (5-19); BLOOD UREA NITROGEN 14 mg/dL (7-20); CALCIUM 9.2 mg/dL (8.4-10.2); CARBON DIOXIDE 37 mmol/L (22-30); CHLORIDE 97 mmol/L (98-107); GLUCOSE 108 mg/dL (75-110); POTASSIUM 4.5 mmol/L (3.6-5.0)
[2017-10-25] MEDS: LEVALBUTEROL HCL NEB 1.25 MG/3 ML AMPUL NEB SCH ×3 (08:17→19:53)
[2017-10-25] MEDS: LACTOBACILLUS ACIDOPHILUS 250 MG TAB PO SCH ×2 (09:43→16:42)
[2017-10-25] MEDS: LISINOPRIL 10 MG TABLET PO SCH (09:43)
[2017-10-25] MEDS: CHOLECALCIFEROL (D3) 1,000 UNIT TABLET PO SCH (09:43)
[2017-10-25] MEDS: FAMOTIDINE 20 MG TABLET PO SCH ×2 (09:43→22:53)
[2017-10-25] MEDS: GUAIFENESIN 600 MG TABLET.SA PO SCH ×2 (09:43→22:53)
[2017-10-25] MEDS: MULTIVITAMIN TABLET PO SCH (09:43)
[2017-10-25] MEDS: HYDROCHLOROTHIAZIDE 12.5 MG CAPSULE PO SCH (09:43)
[2017-10-25] MEDS: DOCUSATE SODIUM 100 MG CAPSULE PO SCH (09:43)
[2017-10-25] MEDS: ENOXAPARIN SODIUM INJ 40 MG/0.4 ML DISP.SYRIN SUBCUT SCH (09:45)
--- NOTE | 2017-10-25 12:05 | PDOC PROGRESS REPORT ---
Subjective Progress Note for:: 10/25/17 Subjective:: feel better Reason For Visit: ACUTE HYPOXIC RESPIRATORY FAILURE,LARGE LEFT-SIDED Physical Exam Vital Signs: Temp Pulse Resp BP Pulse Ox 98.9 F 94 17 130/82 H 93 10/25/17 11:30 10/25/17 11:30 10/25/17 11:30 10/25/17 11:30 10/25/17 11:30 Pulse Oximeter Continuous Start: 10/20/17 10: 36 Freq: RTQ4 Status: Active Document 10/25/17 08:17 TPO (Rec: 10/25/17 08:29 TPO [email or web address]) Pulse Oximetry Assessment Oxygen Saturation (92-100) 91 Oxygen Delivery Method Room Air Fraction of Inspired Oxygen (FIO2) 21 Equipment Usage Equipment in Use Continuous SpO2 Machine # 13 Intake & Output 10/24/17 10/25/17 10/26/17 06:59 06:59 06:59 Intake Total 3446 4077 Balance 3446 4077 Weight 151 kg 151 kg General appearance: PRESENT: no acute distress, cooperative, disheveled, morbidly obese Head exam: PRESENT: atraumatic, normocephalic Eye exam: PRESENT: conjunctiva pale, EOMI. ABSENT: nystagmus, periorbital swelling, scleral icterus Mouth exam: PRESENT: moist, neck supple, tongue midline Neck exam: ABSENT: carotid bruit, JVD, lymphadenopathy, thyromegaly, tracheal deviation, tracheostomy Respiratory exam: PRESENT: clear to auscultation brian. ABSENT: rales, rhonchi, wheezes Cardiovascular exam: PRESENT: RRR, +S1, +S2 Pulses: PRESENT: normal radial pulses GI/Abdominal exam: PRESENT: normal bowel sounds, soft Extremities exam: PRESENT: +1 edema. ABSENT: calf tenderness, clubbing, joint swelling Musculoskeletal exam: PRESENT: ambulatory. ABSENT: deformity, dislocation Neurological exam: PRESENT: alert, awake Psychiatric exam: PRESENT: normal mood Skin exam: PRESENT: dry, warm Results Laboratory Results: 10/25/17 06:13 10/25/17 06:13 10/25/17 10/25/17 06:13 06:13 WBC 6.6 RBC 4.56 Hgb 12.6 L Hct 38.2 MCV 84 MCH 27.5 MCHC 32.9 RDW 14.0 Plt Count 316 Seg Neutrophils % 64.6 Lymphocytes % 20.7 Monocytes % 11.2 Eosinophils % 2.8 Basophils % 0.7 Absolute Neutrophils 4.3 Absolute Lymphocytes 1.4 Absolute Monocytes 0.7 Absolute Eosinophils 0.2 Absolute Basophils 0.0 Sodium 143.0 Potassium 4.5 Chloride 97 L Carbon Dioxide 37 H Anion Gap 9 BUN 14 Creatinine 1.02 Est GFR ( Amer) > 60 Est GFR (Non-Af Amer) > 60 Glucose 108 Calcium 9.2 10/20/17 05:36 NT-Pro-B Natriuret Pep 29 Impressions: Chest CT 10/19/17 08:04 IMPRESSION: Moderate-sized left pleural effusion Left lower lobe collapse and consolidation Mass along the left lateral costophrenic sulcus Fatty liver Bilateral intrarenal nonobstructive kidney stones. NORMAL CT OF THE ABDOMEN AND PELVIS WITH ORAL AND INTRAVENOUS CONTRAST. Abdomen/Pelvis CT 10/19/17 08:05 IMPRESSION: Moderate-sized left pleural effusion Left lower lobe collapse and consolidation Mass along the left lateral costophrenic sulcus Fatty liver Bilateral intrarenal nonobstructive kidney stones. NORMAL CT OF THE ABDOMEN AND PELVIS WITH ORAL AND INTRAVENOUS CONTRAST. Thoracentesis Ultrasound 10/19/17 12:11 IMPRESSION: SUCCESSFUL THORACENTESIS USING ULTRASOUND GUIDANCE. Chest X-Ray 10/20/17 06:00 IMPRESSION: No significant change. No pneumothorax. MUGA 10/20/17 08:00 IMPRESSION: NORMAL CARDIAC MUGA STUDY. NORMAL LEFT VENTRICULAR EJECTION FRACTION, 79%. Assessment & Plan - Diagnosis (1) Uncontrolled daytime somnolence Is this a current diagnosis for this admission?: Yes Plan: Will need to have a sleep study scheduled at the time of discharge (2) Sleeps in sitting position due to orthopnea Is this a current diagnosis for this admission?: Yes Plan: good EF per MUGA (3) Hypertension Is this a current diagnosis for this admission?: Yes (4) Hypoxia Is this a current diagnosis for this admission?: Yes Plan: Supplemental oxygen (5) Pleural effusion Is this a current diagnosis for this admission?: Yes (6) Pneumonia Qualifiers: Pneumonia type: due to unspecified organism Laterality: left Lung location: lower lobe of lung Qualified Code(s): J18.1 - Lobar pneumonia, unspecified organism Is this a current diagnosis for this admission?: Yes (7) Soft tissue mass Is this a current diagnosis for this admission?: Yes
[2017-10-25] MEDS: LEVOFLOXACIN 750 MG TABLET PO SCH (12:14)
--- NOTE | 2017-10-25 15:45 | PDOC PROGRESS REPORT ---
Subjective Progress Note for:: 10/24/17 Subjective:: This gentleman was admitted with difficulty breathing associated with cough with yellowish sputum. He has received outpatient treatment with antibiotics but still with worsening symptoms. He was found to have a likely parapneumonic effusion of the left side on arrival in the emergency room and CT scan revealed a left-sided pleural-based mass with a large left pleural effusion and left lower lung collapse. Patient states that he is feeling better today and his breathing is improved. He has been seen by the special machine operator and comments noted. Patient has a Soft tissue mass that has yet to be biopsied. Will discuss with IR in am and schedule as appropriate Reason For Visit: ACUTE HYPOXIC RESPIRATORY FAILURE,LARGE LEFT-SIDED Physical Exam Vital Signs: Temp Pulse Resp BP Pulse Ox 98.9 F 95 20 159/84 H 95 10/24/17 12:09 10/24/17 13:27 10/24/17 13:27 10/24/17 12:09 10/24/17 13:27 Pulse Oximeter Continuous Start: 10/20/17 10: 36 Freq: RTQ4 Status: Active Document 10/24/17 13:27 TPO (Rec: 10/24/17 13:39 TPO [email or web address]) Pulse Oximetry Assessment Oxygen Saturation (92-100) 95 Oxygen Flow Rate (L/min) 1 Oxygen Delivery Method Nasal Cannula Fraction of Inspired Oxygen (FIO2) 24 Equipment Usage Equipment in Use Continuous SpO2 Machine # 13 Intake & Output 10/23/17 10/24/17 10/25/17 06:59 06:59 06:59 Intake Total 1738 3446 Balance 1738 3446 Weight 985 kg 151 kg General appearance: PRESENT: no acute distress, morbidly obese, well-developed, well-nourished Head exam: PRESENT: atraumatic, normocephalic Eye exam: PRESENT: conjunctiva pink, EOMI, PERRLA. ABSENT: scleral icterus Ear exam: PRESENT: normal external ear exam Mouth exam: PRESENT: moist, tongue midline Neck exam: ABSENT: carotid bruit, JVD, lymphadenopathy, thyromegaly Respiratory exam: PRESENT: decreased breath sounds, rales. ABSENT: rhonchi, wheezes Cardiovascular exam: PRESENT: RRR. ABSENT: diastolic murmur, rubs, systolic murmur Pulses: PRESENT: normal dorsalis pedis pul Vascular exam: PRESENT: normal capillary refill GI/Abdominal exam: PRESENT: normal bowel sounds, soft. ABSENT: distended, guarding, mass, organolmegaly, rebound, tenderness Rectal exam: PRESENT: deferred Extremities exam: PRESENT: full ROM. ABSENT: calf tenderness, clubbing, pedal edema Neurological exam: PRESENT: alert, awake, oriented to person, oriented to place , oriented to time, oriented to situation, CN II-XII grossly intact. ABSENT: motor sensory deficit Psychiatric exam: PRESENT: appropriate affect, normal mood. ABSENT: homicidal ideation, suicidal ideation Skin exam: PRESENT: dry, intact, warm. ABSENT: cyanosis, rash Results Laboratory Results: 10/22/17 04:53 10/22/17 04:53 10/20/17 05:36 NT-Pro-B Natriuret Pep 29 Impressions: Chest CT 10/19/17 08:04 IMPRESSION: Moderate-sized left pleural effusion Left lower lobe collapse and consolidation Mass along the left lateral costophrenic sulcus Fatty liver Bilateral intrarenal nonobstructive kidney stones. NORMAL CT OF THE ABDOMEN AND PELVIS WITH ORAL AND INTRAVENOUS CONTRAST. Abdomen/Pelvis CT 10/19/17 08:05 IMPRESSION: Moderate-sized left pleural effusion Left lower lobe collapse and consolidation Mass along the left lateral costophrenic sulcus Fatty liver Bilateral intrarenal nonobstructive kidney stones. NORMAL CT OF THE ABDOMEN AND PELVIS WITH ORAL AND INTRAVENOUS CONTRAST. Thoracentesis Ultrasound 10/19/17 12:11 IMPRESSION: SUCCESSFUL THORACENTESIS USING ULTRASOUND GUIDANCE. Chest X-Ray 10/20/17 06:00 IMPRESSION: No significant change. No pneumothorax. MUGA 10/20/17 08:00 IMPRESSION: NORMAL CARDIAC MUGA STUDY. NORMAL LEFT VENTRICULAR EJECTION FRACTION, 79%. Assessment & Plan - Time Time Spent with patient: 15-24 minutes Medications reviewed and adjusted accordingly: Yes Anticipated discharge: Home Within: within 48 hours - Plan Summary Plan Summary: 1. Acute hypoxemic respiratory failure likely multifactorial including pneumonia , pleural effusion and lung mass. He is s/p thoracentesis with symptomatic relief. aspirate results essentially negative He is still intermittent hypoxemic and although ok at rest, he drops to around 86% on ambulation. He may need home Oxygen at discharge if not improved 2. Pneumonia, community-acquired, possible postobstructive pneumonia of the left lower lung. Cont Levaquin. 3. Hypertension on lisinopril 4. Hyperlipidemia currently on atorvastatin 5. Soft tissue mass status -Patient needs CT-guided needle biopsy. Will need to discuss and schedule as appropriate next week 6. Patient will need a sleep study as he fits profile of obstructive sleep apnea. Will d/w Dr. Wright 7. Sputum culture and Bronchial washing culture negative 8. Disposition- home mid week
--- NOTE | 2017-10-25 15:50 | PDOC PROGRESS REPORT ---
Subjective Progress Note for:: 10/25/17 Subjective:: This gentleman was admitted with difficulty breathing associated with cough with yellowish sputum. He has received outpatient treatment with antibiotics but still with worsening symptoms. He was found to have a likely parapneumonic effusion of the left side on arrival in the emergency room and CT scan revealed a left-sided pleural-based mass with a large left pleural effusion and left lower lung collapse. Patient states that he is feeling better today and his breathing is improved. He has been seen by the extrusion utility worker and comments noted. I discussed with Dr. Wright today and he indicates that he BiPAP will be arranged for patient at discharge with subsequent sleep study test to be done as outpatient. Plan is also for a biopsy of the left lateral costophrenic sulcus mass hopefully in a.m. Reason For Visit: ACUTE HYPOXIC RESPIRATORY FAILURE,LARGE LEFT-SIDED Physical Exam Vital Signs: Temp Pulse Resp BP Pulse Ox 98.9 F 102 H 18 130/82 H 96 10/25/17 11:30 10/25/17 13:50 10/25/17 13:49 10/25/17 11:30 10/25/17 13:49 Pulse Oximeter Continuous Start: 10/20/17 10: 36 Freq: RTQ4 Status: Active Document 10/25/17 12:11 TPO (Rec: 10/25/17 12:12 TPO [email or web address]) Pulse Oximetry Assessment Oxygen Saturation (92-100) 91 Oxygen Delivery Method Room Air Fraction of Inspired Oxygen (FIO2) 21 Equipment Usage Equipment in Use Continuous SpO2 Machine # 13 Intake & Output 10/24/17 10/25/17 10/26/17 06:59 06:59 06:59 Intake Total 3446 4077 Balance 3446 4079 Weight 151 kg 151 kg General appearance: PRESENT: no acute distress, morbidly obese Head exam: PRESENT: atraumatic Neck exam: ABSENT: carotid bruit, JVD, lymphadenopathy, thyromegaly Respiratory exam: PRESENT: crackles, decreased breath sounds, rhonchi, unlabored Cardiovascular exam: PRESENT: RRR. ABSENT: diastolic murmur, rubs, systolic murmur Pulses: PRESENT: normal dorsalis pedis pul GI/Abdominal exam: PRESENT: ascites Rectal exam: PRESENT: deferred Musculoskeletal exam: PRESENT: ambulatory Neurological exam: PRESENT: alert, awake, oriented to person, oriented to place , oriented to time Psychiatric exam: PRESENT: appropriate affect Results Laboratory Results: 10/25/17 06:13 10/25/17 06:13 10/25/17 10/25/17 06:13 06:13 WBC 6.6 RBC 4.56 Hgb 12.6 L Hct 38.2 MCV 84 MCH 27.5 MCHC 32.9 RDW 14.0 Plt Count 316 Seg Neutrophils % 64.6 Lymphocytes % 20.7 Monocytes % 11.2 Eosinophils % 2.8 Basophils % 0.7 Absolute Neutrophils 4.3 Absolute Lymphocytes 1.4 Absolute Monocytes 0.7 Absolute Eosinophils 0.2 Absolute Basophils 0.0 Sodium 143.0 Potassium 4.5 Chloride 97 L Carbon Dioxide 37 H Anion Gap 9 BUN 14 Creatinine 1.02 Est GFR ( Amer) > 60 Est GFR (Non-Af Amer) > 60 Glucose 108 Calcium 9.2 10/20/17 05:36 NT-Pro-B Natriuret Pep 29 Impressions: Chest CT 10/19/17 08:04 IMPRESSION: Moderate-sized left pleural effusion Left lower lobe collapse and consolidation Mass along the left lateral costophrenic sulcus Fatty liver Bilateral intrarenal nonobstructive kidney stones. NORMAL CT OF THE ABDOMEN AND PELVIS WITH ORAL AND INTRAVENOUS CONTRAST. Abdomen/Pelvis CT 10/19/17 08:05 IMPRESSION: Moderate-sized left pleural effusion Left lower lobe collapse and consolidation Mass along the left lateral costophrenic sulcus Fatty liver Bilateral intrarenal nonobstructive kidney stones. NORMAL CT OF THE ABDOMEN AND PELVIS WITH ORAL AND INTRAVENOUS CONTRAST. Thoracentesis Ultrasound 10/19/17 12:11 IMPRESSION: SUCCESSFUL THORACENTESIS USING ULTRASOUND GUIDANCE. Chest X-Ray 10/20/17 06:00 IMPRESSION: No significant change. No pneumothorax. MUGA 10/20/17 08:00 IMPRESSION: NORMAL CARDIAC MUGA STUDY. NORMAL LEFT VENTRICULAR EJECTION FRACTION, 79%. Assessment & Plan - Time Time Spent with patient: 15-24 minutes Medications reviewed and adjusted accordingly: Yes Anticipated discharge: Home Within: within 48 hours - Inpatient Certification Based on my medical assessment, after consideration of the patient's comorbidities, presenting symptoms, or acuity I expect that the services needed warrant INPATIENT care.: Yes Medical Necessity: Risk of Complication if Not Cared For in Hospital
[2017-10-25] MEDS: LEVALBUTEROL HCL NEB 1.25 MG/3 ML AMPUL NEB PRN (18:20)
[2017-10-25] MEDS ORDERED: LOVASTATIN 40 MG PO SCH (22:00)
[2017-10-25] MEDS: LOVASTATIN 40 MG PO SCH (22:53)
[2017-10-26 05:18] LABS: INTERNATIONAL RATION (INR) 0.96; PROTHROMBIN TIME 13.3 SEC (11.4-15.4)
[2017-10-26 05:19] LABS: PARTIAL THROMBOPLASTIN TIME 32.5 SEC (23.5-35.8)
[2017-10-26 06:21] LABS: ARTERIAL BLOOD BASE EXCESS 8.1 mmol/L; ARTERIAL BLOOD FIO2 28%; ARTERIAL BLOOD H2CO3 1.68 mmol/L (1.05-1.35); ARTERIAL BLOOD HCO3 34.4 mmol/L (20-26); ARTERIAL BLOOD O2 SATURATION 88.5 % (94-98); ARTERIAL BLOOD PCO2 55.8 mmHg (35-45); ARTERIAL BLOOD PH 7.41 (7.35-7.45); ARTERIAL BLOOD PO2 55.5 mmHg (80-100); ARTERIAL BLOOD TOTAL CO2 36.1 mmol/L (23-27)
[2017-10-26] MEDS: LEVALBUTEROL HCL NEB 1.25 MG/3 ML AMPUL NEB SCH ×3 (08:38→20:13)
[2017-10-26] MEDS: ENOXAPARIN SODIUM INJ 40 MG/0.4 ML DISP.SYRIN SUBCUT SCH (09:01)
[2017-10-26] MEDS: DOCUSATE SODIUM 100 MG CAPSULE PO SCH ×2 (09:07→14:47)
[2017-10-26] MEDS: CHOLECALCIFEROL (D3) 1,000 UNIT TABLET PO SCH (09:07)
[2017-10-26] MEDS: LACTOBACILLUS ACIDOPHILUS 250 MG TAB PO SCH ×2 (09:08→17:04)
[2017-10-26] MEDS: MULTIVITAMIN TABLET PO SCH (09:08)
[2017-10-26] MEDS: GUAIFENESIN 600 MG TABLET.SA PO SCH ×2 (09:08→22:26)
[2017-10-26] MEDS: LISINOPRIL 10 MG TABLET PO SCH (09:08)
[2017-10-26] MEDS: HYDROCHLOROTHIAZIDE 12.5 MG CAPSULE PO SCH (09:08)
[2017-10-26] MEDS: FAMOTIDINE 20 MG TABLET PO SCH ×2 (09:08→22:26)
[2017-10-26] MEDS ORDERED: FUROSEMIDE INJ/PF 20 MG/2 ML SDV IV ONE (11:15)
[2017-10-26] MEDS ORDERED: MIDAZOLAM 2 MG/2 ML INJ ONE (11:25)
[2017-10-26] MEDS ORDERED: FENTANYL CITRATE INJ/PF 100 MCG/2 ML AMPUL ONE (11:26)
[2017-10-26] MEDS ORDERED: LIDOCAINE 1% INJ-PF (10 MG/ML) 30 ML SDV ONE (11:26)
[2017-10-26] MEDS: LEVOFLOXACIN 750 MG TABLET PO SCH (12:28)
--- NOTE | 2017-10-26 12:48 | RADIOLOGY REPORT (SQ) ---
EXAM DESCRIPTION: CT BIOPSY LUNG/MEDIASTINUM; CT NEEDLE PLACEMENT COMPLETED DATE/TIME: 10/26/2017 12:08 pm REASON FOR STUDY: lung mass; LUNG MASS, LUNG BIOPSY COMPARISON: CT chest abdomen pelvis 10/19/2017 Ultrasound-guided left thoracentesis 10/19/2017 TECHNIQUE: CT guided biopsy of the left lower anterior chest wall hematoma/mass performed with IV pa in control. CT Fluoroscopy Time: 5.[address] scanners at this facility use dose modulation, iterative reconstruction, and/or weight based d osing when appropriate to reduce radiation dose to as low as reasonably achievable (ALARA). [facility]: Dose Right [facility]: CareDose [facility]: Dose Right [facility]: Teradose 4D [facility]: [employer] RADIATION DOSE: 64 mGy FINDINGS: The procedure was discussed with the patient and the patient agreed to the procedure. Prio r to the procedure, a time out was performed to verify the patient's identity and planned procedure. IV pain control was administered and physician direction by the registered nurse using 50 micrograms of fentanyl, for conscious sedation. Physiologic monitoring was provided before, during, and after IV pain medicine. Documentation face to face time, the performing proceduralist, spent monitoring the patient: [address] scanning was performed to localize the percutaneous site for the biopsy approach. After sterile skin prep and local lidocaine for skin and deep tissue anesthesia, a coaxial 18 gauge b iopsy needle was used to obtain multiple cores of tissue. The biopsy tissue was submitted to the lab in formalin. There were no immediate complications. Pathology is pending at the time of dictation. IMPRESSION: CT GUIDED BIOPSY OF THE LEFT ANTEROLATERAL CHEST WALL MASS/HEMATOMA PERFORMED WITHOUT IM MEDIATE COMPLICATION. PATHOLOGY PENDING. COMMENT: Quality ID 145: Final reports for procedures using fluoroscopy that document radiation exp osure indices, or exposure time and number of fluorographic images (if radiation exposure indices are not available) Patient medication list reviewed: Yes- Quality ID# [id number]:Eligible professional attests to documenting i n the medical record they obtained, updated, or reviewed the patient's current medications.. TECHNICAL DOCUMENTATION: JOB ID: [id number] Quality ID# 436: Final reports with documentation of one or more dose reduction techniques (e.g., Aut omated exposure control, adjustment of the mA and/or kV according to patient size, use of iterative r econstruction technique) 2010 [employer]- All Rights Reserved Reading location - IP/workstation name: [email or web address]
--- NOTE | 2017-10-26 12:48 | RADIOLOGY REPORT (SQ) ---
EXAM DESCRIPTION: CT BIOPSY LUNG/MEDIASTINUM; CT NEEDLE PLACEMENT COMPLETED DATE/TIME: 10/26/2017 12:08 pm REASON FOR STUDY: lung mass; LUNG MASS, LUNG BIOPSY COMPARISON: CT chest abdomen pelvis 10/19/2017 Ultrasound-guided left thoracentesis 10/19/2017 TECHNIQUE: CT guided biopsy of the left lower anterior chest wall hematoma/mass performed with IV pa in control. CT Fluoroscopy Time: 5.[address] scanners at this facility use dose modulation, iterative reconstruction, and/or weight based d osing when appropriate to reduce radiation dose to as low as reasonably achievable (ALARA). [facility]: Dose Right [facility]: CareDose [facility]: Dose Right [facility]: Teradose 4D [facility]: [email or web address] RADIATION DOSE: 64 mGy FINDINGS: The procedure was discussed with the patient and the patient agreed to the procedure. Prio r to the procedure, a time out was performed to verify the patient's identity and planned procedure. IV pain control was administered and physician direction by the registered nurse using 50 micrograms of fentanyl, for conscious sedation. Physiologic monitoring was provided before, during, and after IV pain medicine. Documentation face to face time, the performing proceduralist, spent monitoring the patient: [address] scanning was performed to localize the percutaneous site for the biopsy approach. After sterile skin prep and local lidocaine for skin and deep tissue anesthesia, a coaxial 18 gauge b iopsy needle was used to obtain multiple cores of tissue. The biopsy tissue was submitted to the lab in formalin. There were no immediate complications. Pathology is pending at the time of dictation. IMPRESSION: CT GUIDED BIOPSY OF THE LEFT ANTEROLATERAL CHEST WALL MASS/HEMATOMA PERFORMED WITHOUT IM MEDIATE COMPLICATION. PATHOLOGY PENDING. COMMENT: Quality ID 145: Final reports for procedures using fluoroscopy that document radiation exp osure indices, or exposure time and number of fluorographic images (if radiation exposure indices are not available) Patient medication list reviewed: Yes- Quality ID# [id number]:Eligible professional attests to documenting i n the medical record they obtained, updated, or reviewed the patient's current medications.. TECHNICAL DOCUMENTATION: JOB ID: [id number] Quality ID# 436: Final reports with documentation of one or more dose reduction techniques (e.g., Aut omated exposure control, adjustment of the mA and/or kV according to patient size, use of iterative r econstruction technique) 2010 [employer]- All Rights Reserved Reading location - IP/workstation name: [email or web address]
--- NOTE | 2017-10-26 13:36 | RADIOLOGY REPORT (SQ) ---
EXAM DESCRIPTION: CHEST SINGLE VIEW COMPLETED DATE/TIME: 10/26/2017 12:17 pm REASON FOR STUDY: POST CHEST WALL BIOPSY COMPARISON: Chest CT images dated 10/26/2017 EXAM PARAMETERS: NUMBER OF VIEWS: One view. TECHNIQUE: Single frontal radiographic view of the chest acquired. RADIATION DOSE: NA LIMITATIONS: None. FINDINGS: LUNGS AND PLEURA: No pneumothorax on the left is seen. There is increased density in the left lung base related to a left pleural effusion with associated atelectasis or infiltrate. The rig ht lung is clear and well expanded. MEDIASTINUM AND HILAR STRUCTURES: No masses. Contour normal. HEART AND VASCULAR STRUCTURES: Heart normal in size. Normal vasculature. BONES: No acute findings. HARDWARE: None in the chest. OTHER: No other significant finding. IMPRESSION: No evidence for pneumothorax post chest wall biopsy. Other findings as noted above TECHNICAL DOCUMENTATION: JOB ID: [id number] [employer]- All Rights Reserved Reading location - IP/workstation name: [email or web address]
--- NOTE | 2017-10-26 14:04 | PDOC PROGRESS REPORT ---
Subjective Progress Note for:: 10/26/17 Subjective:: Awaiting biopsy of soft tissue mass in chest wall Reason For Visit: ACUTE HYPOXIC RESPIRATORY FAILURE,LARGE LEFT-SIDED Physical Exam Vital Signs: Temp Pulse Resp BP Pulse Ox 98.2 F 101 H 17 115/68 95 10/26/17 11:09 10/26/17 11:09 10/26/17 11:09 10/26/17 11:09 10/26/17 12:41 Pulse Oximeter Continuous Start: 10/20/17 10: 36 Freq: RTQ4 Status: Active Document 10/26/17 12:41 HCR (Rec: 10/26/17 12:42 HCR [email or web address]) Pulse Oximetry Assessment Oxygen Saturation (92-100) 95 Oxygen Delivery Method Room Air Fraction of Inspired Oxygen (FIO2) 21 Equipment Usage Equipment in Use Continuous SpO2 Machine # 13 Pulse Oximeter Nocturnal Start: 10/25/17 17: 03 Freq: RTQ4 Status: Complete Document 10/26/17 00:00 SFL (Rec: 10/26/17 00:21 SFL [email or web address]) Nocturnal Pulse Oximetry Equipment Usage Equipment in Use Nocturnal Spo2 Charge Charge Now Oxygen Delivery Method (includes room Bi-pap air) O2 Sat by Pulse Oximetry (92-100) 96 Continuous Pulse Oximeter Set Up No Continuous SpO2 Discontinued No Continuous SpO2 Machine # xx Intake & Output 10/25/17 10/26/17 10/27/17 06:59 06:59 06:59 Intake Total 4077 1962 Balance 4077 1962 Weight 151 kg General appearance: PRESENT: no acute distress, cooperative, disheveled, morbidly obese Head exam: PRESENT: atraumatic, normocephalic Eye exam: PRESENT: conjunctiva pale, EOMI. ABSENT: nystagmus, periorbital swelling, scleral icterus Mouth exam: PRESENT: moist, neck supple, tongue midline Neck exam: ABSENT: carotid bruit, JVD, lymphadenopathy, thyromegaly, tracheal deviation, tracheostomy Respiratory exam: PRESENT: decreased breath sounds, prolonged expiratory phas, rhonchi, unlabored. ABSENT: retraction, tachypnea Cardiovascular exam: PRESENT: RRR, +S1, +S2 GI/Abdominal exam: PRESENT: diminished bowel sounds, soft Extremities exam: ABSENT: calf tenderness, clubbing, joint swelling Musculoskeletal exam: PRESENT: ambulatory. ABSENT: deformity, dislocation Neurological exam: PRESENT: alert, awake Psychiatric exam: PRESENT: normal mood Skin exam: PRESENT: dry, warm Results Laboratory Results: 10/25/17 06:13 10/25/17 06:13 10/26/17 05:57 Carbonic Acid 1.68 H HCO3/H2CO3 Ratio 20:1 ABG pH 7.41 ABG pCO2 55.8 H ABG pO2 55.5 L ABG HCO3 34.4 H ABG O2 Saturation 88.5 L ABG Base Excess 8.1 FiO2 28% 10/20/17 05:36 NT-Pro-B Natriuret Pep 29 Impressions: Chest CT 10/19/17 08:04 IMPRESSION: Moderate-sized left pleural effusion Left lower lobe collapse and consolidation Mass along the left lateral costophrenic sulcus Fatty liver Bilateral intrarenal nonobstructive kidney stones. NORMAL CT OF THE ABDOMEN AND PELVIS WITH ORAL AND INTRAVENOUS CONTRAST. Abdomen/Pelvis CT 10/19/17 08:05 IMPRESSION: Moderate-sized left pleural effusion Left lower lobe collapse and consolidation Mass along the left lateral costophrenic sulcus Fatty liver Bilateral intrarenal nonobstructive kidney stones. NORMAL CT OF THE ABDOMEN AND PELVIS WITH ORAL AND INTRAVENOUS CONTRAST. Thoracentesis Ultrasound 10/19/17 12:11 IMPRESSION: SUCCESSFUL THORACENTESIS USING ULTRASOUND GUIDANCE. MUGA 10/20/17 08:00 IMPRESSION: NORMAL CARDIAC MUGA STUDY. NORMAL LEFT VENTRICULAR EJECTION FRACTION, 79%. Chest X-Ray 10/26/17 00:00 IMPRESSION: No evidence for pneumothorax post chest wall biopsy. Other findings as noted above Guidance Needle Placement CT 10/26/17 00:00 IMPRESSION: CT GUIDED BIOPSY OF THE LEFT ANTEROLATERAL CHEST WALL MASS/ HEMATOMA PERFORMED WITHOUT IMMEDIATE COMPLICATION. PATHOLOGY PENDING. Lung Biopsy CT 10/26/17 00:00 IMPRESSION: CT GUIDED BIOPSY OF THE LEFT ANTEROLATERAL CHEST WALL MASS/ HEMATOMA PERFORMED WITHOUT IMMEDIATE COMPLICATION. PATHOLOGY PENDING. Assessment & Plan - Diagnosis (1) Uncontrolled daytime somnolence Is this a current diagnosis for this admission?: Yes Plan: Will need to have a sleep study scheduled at the time of discharge (2) Sleeps in sitting position due to orthopnea Is this a current diagnosis for this admission?: Yes Plan: good EF per MUGA (3) Hypertension Is this a current diagnosis for this admission?: Yes (4) Hypoxia Is this a current diagnosis for this admission?: Yes Plan: Improving (5) Pleural effusion Is this a current diagnosis for this admission?: No (6) Pneumonia Qualifiers: Pneumonia type: due to unspecified organism Laterality: left Lung location: lower lobe of lung Qualified Code(s): J18.1 - Lobar pneumonia, unspecified organism Is this a current diagnosis for this admission?: No (7) Soft tissue mass Is this a current diagnosis for this admission?: Yes Plan: Plan to biopsy later today
--- NOTE | 2017-10-26 17:32 | PDOC PROGRESS REPORT ---
Subjective Progress Note for:: 10/26/17 Subjective:: Patient relates that shortness of breath is better. He states that he had a bruise on the left side of his chest and a week ago due to a cough spell. He has never been tested for sleep apnea. Review of systems All organ systems evaluated and negative except as in subjective All laboratories and significant diagnostics have been reviewed Reason For Visit: ACUTE HYPOXIC RESPIRATORY FAILURE,LARGE LEFT-SIDED Physical Exam Vital Signs: Temp Pulse Resp BP Pulse Ox 97.9 F 91 13 115/67 100 10/26/17 03:52 10/26/17 07:00 10/26/17 03:52 10/26/17 03:52 10/26/17 03:52 Pulse Oximeter Continuous Start: 10/20/17 10: 36 Freq: RTQ4 Status: Active Document 10/26/17 03:10 SFL (Rec: 10/26/17 03:11 SFL [email or web address]) Pulse Oximetry Assessment Oxygen Saturation (92-100) 94 Oxygen Delivery Method Bi-pap Fraction of Inspired Oxygen (FIO2) 28 Equipment Usage Equipment in Use Continuous SpO2 Machine # 13 Pulse Oximeter Nocturnal Start: 10/25/17 17: 03 Freq: RTQ4 Status: Complete Document 10/26/17 00:00 SFL (Rec: 10/26/17 00:21 SFL [email or web address]) Nocturnal Pulse Oximetry Equipment Usage Equipment in Use Nocturnal Spo2 Charge Charge Now Oxygen Delivery Method (includes room Bi-pap air) O2 Sat by Pulse Oximetry (92-100) 96 Continuous Pulse Oximeter Set Up No Continuous SpO2 Discontinued No Continuous SpO2 Machine # xx Intake & Output 10/25/17 10/26/17 10/27/17 06:59 06:59 06:59 Intake Total 4077 1962 Balance 4077 1961 Weight 151 kg General appearance: PRESENT: no acute distress, cooperative, morbidly obese Head exam: PRESENT: atraumatic, normocephalic Eye exam: PRESENT: conjunctiva pink, EOMI, PERRLA Ear exam: PRESENT: normal external ear exam Mouth exam: PRESENT: moist Neck exam: PRESENT: full ROM. ABSENT: JVD, lymphadenopathy, tenderness, thyromegaly Respiratory exam: PRESENT: clear to auscultation brian, decreased breath sounds Cardiovascular exam: PRESENT: RRR. ABSENT: diastolic murmur, systolic murmur Vascular exam: PRESENT: normal capillary refill GI/Abdominal exam: PRESENT: normal bowel sounds, tenderness - On palpation of left CV area Extremities exam: PRESENT: full ROM, other - 3+ pitting edema bilaterally Musculoskeletal exam: PRESENT: ambulatory Neurological exam: PRESENT: alert, awake, oriented to person, oriented to place , oriented to time, oriented to situation, CN II-XII grossly intact Psychiatric exam: PRESENT: appropriate affect, normal mood Skin exam: PRESENT: other - Skin noted to left CVA area Results Laboratory Results: 10/25/17 06:13 10/25/17 06:13 10/26/17 05:57 Carbonic Acid 1.68 H HCO3/H2CO3 Ratio 20:1 ABG pH 7.41 ABG pCO2 55.8 H ABG pO2 55.5 L ABG HCO3 34.4 H ABG O2 Saturation 88.5 L ABG Base Excess 8.1 FiO2 28% 10/20/17 05:36 NT-Pro-B Natriuret Pep 29 Impressions: Chest CT 10/19/17 08:04 IMPRESSION: Moderate-sized left pleural effusion Left lower lobe collapse and consolidation Mass along the left lateral costophrenic sulcus Fatty liver Bilateral intrarenal nonobstructive kidney stones. NORMAL CT OF THE ABDOMEN AND PELVIS WITH ORAL AND INTRAVENOUS CONTRAST. Abdomen/Pelvis CT 10/19/17 08:05 IMPRESSION: Moderate-sized left pleural effusion Left lower lobe collapse and consolidation Mass along the left lateral costophrenic sulcus Fatty liver Bilateral intrarenal nonobstructive kidney stones. NORMAL CT OF THE ABDOMEN AND PELVIS WITH ORAL AND INTRAVENOUS CONTRAST. Thoracentesis Ultrasound 10/19/17 12:11 IMPRESSION: SUCCESSFUL THORACENTESIS USING ULTRASOUND GUIDANCE. Chest X-Ray 10/20/17 06:00 IMPRESSION: No significant change. No pneumothorax. MUGA 10/20/17 08:00 IMPRESSION: NORMAL CARDIAC MUGA STUDY. NORMAL LEFT VENTRICULAR EJECTION FRACTION, 79%. Assessment & Plan - Diagnosis (1) Pneumonia Qualifiers: Pneumonia type: due to unspecified organism Laterality: left Lung location: lower lobe of lung Qualified Code(s): J18.1 - Lobar pneumonia, unspecified organism Is this a current diagnosis for this admission?: No Plan: Continue present management (2) Morbid obesity with BMI of 45.0-49.9, adult Is this a current diagnosis for this admission?: Yes Plan: Advised as to lifestyle modification (3) Hypertension Is this a current diagnosis for this admission?: Yes Plan: The new present management (4) Soft tissue mass Is this a current diagnosis for this admission?: Yes Plan: For biopsy today (5) Anasarca Is this a current diagnosis for this admission?: Yes Plan: To place patient on IV Lasix, order echocardiogram to evaluate for pulmonary hypertension. MUGA showed EF of 79% - Time Time Spent with patient: 15-24 minutes Medications reviewed and adjusted accordingly: Yes Anticipated discharge: Home Within: within 72 hours - Inpatient Certification Based on my medical assessment, after consideration of the patient's comorbidities, presenting symptoms, or acuity I expect that the services needed warrant INPATIENT care.: Yes I certify that my determination is in accordance with my understanding of Medicare's requirements for reasonable and necessary INPATIENT services [42 CFR 412.3e].: Yes Medical Necessity: Need Close Monitoring Due to Risk of Patient Decompensation, Need For Continuous Telemetry Monitoring
[2017-10-26] MEDS ORDERED: FUROSEMIDE INJ/PF 20 MG/2 ML SDV IV SCH (18:00)
[2017-10-26] MEDS: LOVASTATIN 40 MG PO SCH (22:26)
[2017-10-27 06:40] LABS: ABSOLUTE BASOPHILS # (AUTO) 0.1 10^3/uL (0.0-0.2); ABSOLUTE EOSINOPHILS # (AUTO) 0.2 10^3/uL (0.0-0.6); ABSOLUTE LYMPHOCYTES (AUTO) 1.7 10^3/uL (0.5-4.7); ABSOLUTE NEUT (AUTO) 4.9 10^3/uL (1.7-8.2); BASOPHILS % (AUTO) 0.8 % (0-2); EOSINOPHILS % (AUTO) 2.5 % (0-6); HEMATOCRIT 38.7 % (37.9-51.0); HEMOGLOBIN 12.8 g/dL (13.5-17.0); MEAN CORPUSCULAR HEMOGLOBIN 27.6 pg (27.0-33.4); MEAN CORPUSCULAR HGB CONC 33.2 g/dL (32.0-36.0); MEAN CORPUSCULAR VOLUME 83 fl (80-97); MONOCYTES % (AUTO) 12.4 % (3-13); PLATELET COUNT 295 10^3/uL (150-450); RED BLOOD COUNT 4.66 10^6/uL (4.35-5.55); SEGMENTED NEUTROPHILS % (AUTO) 62.3 % (42-78); TOTAL CELLS COUNTED % (AUTO) 100 %; WHITE BLOOD COUNT 7.9 10^3/uL (4.0-10.5)
[2017-10-27 06:46] LABS: BLOOD UREA NITROGEN 20 mg/dL (7-20); CALCIUM 9.3 mg/dL (8.4-10.2); CHLORIDE 93 mmol/L (98-107); GLUCOSE 110 mg/dL (75-110); POTASSIUM 4.6 mmol/L (3.6-5.0); SODIUM 139.8 mmol/L (137-145)
[2017-10-27 06:52] LABS: ANION GAP 8 (5-19)
[2017-10-27 06:54] LABS: CARBON DIOXIDE 39 mmol/L (22-30)
[2017-10-27] MEDS: LEVALBUTEROL HCL NEB 1.25 MG/3 ML AMPUL NEB SCH ×2 (08:04→13:59)
[2017-10-27] MEDS ORDERED: FUROSEMIDE INJ/PF 20 MG/2 ML SDV IV SCH (08:27)
[2017-10-27] MEDS: ENOXAPARIN SODIUM INJ 40 MG/0.4 ML DISP.SYRIN SUBCUT SCH (09:48)
[2017-10-27] MEDS: LISINOPRIL 10 MG TABLET PO SCH (09:49)
[2017-10-27] MEDS: LACTOBACILLUS ACIDOPHILUS 250 MG TAB PO SCH ×2 (09:51→18:12)
[2017-10-27] MEDS: CHOLECALCIFEROL (D3) 1,000 UNIT TABLET PO SCH (09:51)
[2017-10-27] MEDS: GUAIFENESIN 600 MG TABLET.SA PO SCH ×2 (09:51→21:58)
[2017-10-27] MEDS: METOPROLOL SUCCINATE 25 MG TAB.SR.24H PO SCH (09:52)
[2017-10-27] MEDS: FAMOTIDINE 20 MG TABLET PO SCH ×2 (09:52→21:57)
[2017-10-27] MEDS: MULTIVITAMIN TABLET PO SCH (09:52)
[2017-10-27] MEDS ORDERED: FUROSEMIDE INJ/PF 100 MG/10 ML SDV IV SCH (10:00)
--- NOTE | 2017-10-27 15:18 | PDOC PROGRESS REPORT ---
Subjective Progress Note for:: 10/27/17 Subjective:: Patient relates that shortness of breath is better. Review of systems All organ systems evaluated and negative except as in subjective All laboratories and significant diagnostics have been reviewed Reason For Visit: ACUTE HYPOXIC RESPIRATORY FAILURE,LARGE LEFT-SIDED Physical Exam Vital Signs: Temp Pulse Resp BP Pulse Ox 97.8 F 94 16 122/70 96 10/27/17 03:14 10/27/17 07:00 10/27/17 03:14 10/27/17 03:14 10/27/17 04:00 Pulse Oximeter Continuous Start: 10/20/17 10: 36 Freq: RTQ4 Status: Complete Document 10/27/17 04:00 SFL (Rec: 10/27/17 05:05 SFL [email or web address]) Pulse Oximetry Assessment Oxygen Saturation (92-100) 96 Oxygen Delivery Method Room Air Equipment Usage Equipment in Use Continuous SpO2 Machine # 13 Pulse Oximeter Nocturnal Start: 10/25/17 17: 03 Freq: RTQ4 Status: Complete Document 10/26/17 00:00 SFL (Rec: 10/26/17 00:21 SFL [email or web address]) Nocturnal Pulse Oximetry Equipment Usage Equipment in Use Nocturnal Spo2 Charge Charge Now Oxygen Delivery Method (includes room Bi-pap air) O2 Sat by Pulse Oximetry (92-100) 96 Continuous Pulse Oximeter Set Up No Continuous SpO2 Discontinued No Continuous SpO2 Machine # xx Intake & Output 10/26/17 10/27/17 10/28/17 06:59 06:59 06:59 Intake Total 1961 1038 Balance 1961 1038 Weight 146.2 kg General appearance: PRESENT: cooperative, morbidly obese Head exam: PRESENT: atraumatic, normocephalic Eye exam: PRESENT: conjunctiva pink, EOMI, PERRLA Ear exam: PRESENT: normal external ear exam Mouth exam: PRESENT: moist Neck exam: PRESENT: full ROM. ABSENT: JVD, lymphadenopathy, tenderness Respiratory exam: PRESENT: clear to auscultation brian, decreased breath sounds Cardiovascular exam: PRESENT: RRR. ABSENT: diastolic murmur, systolic murmur Vascular exam: PRESENT: normal capillary refill GI/Abdominal exam: PRESENT: normal bowel sounds, soft. ABSENT: tenderness Extremities exam: PRESENT: full ROM Musculoskeletal exam: PRESENT: ambulatory - 3+ pitting edema Neurological exam: PRESENT: alert, awake, oriented to person, oriented to place , oriented to time, oriented to situation, CN II-XII grossly intact Psychiatric exam: PRESENT: appropriate affect, normal mood Skin exam: PRESENT: intact, normal color Results Laboratory Results: 10/27/17 05:12 10/27/17 05:12 10/27/17 10/27/17 05:12 05:12 WBC 7.9 RBC 4.66 Hgb 12.8 L Hct 38.7 MCV 83 MCH 27.6 MCHC 33.2 RDW 14.0 Plt Count 295 Seg Neutrophils % 62.3 Lymphocytes % 22.0 Monocytes % 12.4 Eosinophils % 2.5 Basophils % 0.8 Absolute Neutrophils 4.9 Absolute Lymphocytes 1.7 Absolute Monocytes 1.0 Absolute Eosinophils 0.2 Absolute Basophils 0.1 Sodium 139.8 Potassium 4.6 Chloride 93 L Carbon Dioxide 39 H Anion Gap 8 BUN 20 Creatinine 1.27 H Est GFR ( Amer) > 60 Est GFR (Non-Af Amer) 59 L Glucose 110 Calcium 9.3 Magnesium 2.2 10/20/17 05:36 NT-Pro-B Natriuret Pep 29 Impressions: Chest CT 10/19/17 08:04 IMPRESSION: Moderate-sized left pleural effusion Left lower lobe collapse and consolidation Mass along the left lateral costophrenic sulcus Fatty liver Bilateral intrarenal nonobstructive kidney stones. NORMAL CT OF THE ABDOMEN AND PELVIS WITH ORAL AND INTRAVENOUS CONTRAST. Abdomen/Pelvis CT 10/19/17 08:05 IMPRESSION: Moderate-sized left pleural effusion Left lower lobe collapse and consolidation Mass along the left lateral costophrenic sulcus Fatty liver Bilateral intrarenal nonobstructive kidney stones. NORMAL CT OF THE ABDOMEN AND PELVIS WITH ORAL AND INTRAVENOUS CONTRAST. Thoracentesis Ultrasound 10/19/17 12:11 IMPRESSION: SUCCESSFUL THORACENTESIS USING ULTRASOUND GUIDANCE. MUGA 10/20/17 08:00 IMPRESSION: NORMAL CARDIAC MUGA STUDY. NORMAL LEFT VENTRICULAR EJECTION FRACTION, 79%. Chest X-Ray 10/26/17 00:00 IMPRESSION: No evidence for pneumothorax post chest wall biopsy. Other findings as noted above Guidance Needle Placement CT 10/26/17 00:00 IMPRESSION: CT GUIDED BIOPSY OF THE LEFT ANTEROLATERAL CHEST WALL MASS/ HEMATOMA PERFORMED WITHOUT IMMEDIATE COMPLICATION. PATHOLOGY PENDING. Lung Biopsy CT 10/26/17 00:00 IMPRESSION: CT GUIDED BIOPSY OF THE LEFT ANTEROLATERAL CHEST WALL MASS/ HEMATOMA PERFORMED WITHOUT IMMEDIATE COMPLICATION. PATHOLOGY PENDING. Assessment & Plan - Diagnosis (1) Pneumonia Qualifiers: Pneumonia type: due to unspecified organism Laterality: left Lung location: lower lobe of lung Qualified Code(s): J18.1 - Lobar pneumonia, unspecified organism Is this a current diagnosis for this admission?: No Plan: Discontinue Levaquin since fully treated (2) Morbid obesity with BMI of 45.0-49.9, adult Is this a current diagnosis for this admission?: Yes Plan: Advised as to lifestyle modification (3) Hypertension Qualifiers: Hypertension type: essential hypertension Qualified Code(s): I10 - Essential (primary) hypertension Is this a current diagnosis for this admission?: Yes Plan: Continue present management (4) Soft tissue mass Is this a current diagnosis for this admission?: Yes Plan: Biopsy obtained on October 26 negative for malignancy (5) Anasarca Is this a current diagnosis for this admission?: Yes Plan: Transition to the medics. Echocardiogram ordered and pending - Time Time Spent with patient: 15-24 minutes Medications reviewed and adjusted accordingly: Yes Anticipated discharge: Home Within: within 24 hours - Inpatient Certification Based on my medical assessment, after consideration of the patient's comorbidities, presenting symptoms, or acuity I expect that the services needed warrant INPATIENT care.: Yes I certify that my determination is in accordance with my understanding of Medicare's requirements for reasonable and necessary INPATIENT services [42 CFR 412.3e].: Yes Medical Necessity: Significant Comorbidiites Make Outpatient Treatment Too Risky , Need Close Monitoring Due to Risk of Patient Decompensation
--- NOTE | 2017-10-27 16:40 | Pulmonary Function Test ---
Pulmonary Function Test Date of Procedure:: 10/27/17 INDICATION:: Dyspnea Referring Provider: Dr. Roxanne Londono [employer]ot[employer] Specialist: Arvind Luna - Report Spirometry: FVC 1.68 L 37% postbronchodilator 1.70 L 37% FEV1 1.32 L 36% postbronchodilator 1.43 L 39% FEV1/FVC % 79 postbronchodilator 84 predicted 81 FEF 25-75% 1.72 L 46% postbronchodilator 1.89 L 50% Impression: Severe obstructive ventilatory defect with insignificant response to bronchodilator therapy this in and of itself does not preclude a clinical trial of bronchodilator therapy spirometry suggests a restrictive defect. Restrictive defect cannot be diagnosed on the basis of spirometry alone. Restrictive defects may mask the degree of obstruction. When patient is clinically stable complete pulmonary function tests would be clinically warranted
[2017-10-27] MEDS ORDERED: TORSEMIDE 20 MG TABLET PO SCH (18:00)
[2017-10-27] MEDS: LOVASTATIN 40 MG PO SCH (21:58)
[2017-10-28 06:30] LABS: ABSOLUTE BASOPHILS # (AUTO) 0.1 10^3/uL (0.0-0.2); ABSOLUTE EOSINOPHILS # (AUTO) 0.2 10^3/uL (0.0-0.6); ABSOLUTE LYMPHOCYTES (AUTO) 1.6 10^3/uL (0.5-4.7); ABSOLUTE MONOCYTES (AUTO) 0.9 10^3/uL (0.1-1.4); ABSOLUTE NEUT (AUTO) 4.6 10^3/uL (1.7-8.2); BASOPHILS % (AUTO) 0.8 % (0-2); EOSINOPHILS % (AUTO) 3.3 % (0-6); HEMATOCRIT 36.2 % (37.9-51.0); HEMOGLOBIN 12.3 g/dL (13.5-17.0); MEAN CORPUSCULAR VOLUME 82 fl (80-97); PLATELET COUNT 272 10^3/uL (150-450); RED CELL DISTRIBUTION WIDTH 13.8 % (11.5-14.0); SEGMENTED NEUTROPHILS % (AUTO) 61.9 % (42-78); TOTAL CELLS COUNTED % (AUTO) 100 %; WHITE BLOOD COUNT 7.5 10^3/uL (4.0-10.5)
[2017-10-28 06:53] LABS: ANION GAP 9 (5-19); BLOOD UREA NITROGEN 23 mg/dL (7-20); CALCIUM 8.8 mg/dL (8.4-10.2); CARBON DIOXIDE 37 mmol/L (22-30); CHLORIDE 94 mmol/L (98-107); GLUCOSE 108 mg/dL (75-110); POTASSIUM 4.3 mmol/L (3.6-5.0); SODIUM 139.7 mmol/L (137-145)
[2017-10-28 09:21] VITALS: BP 127/79
[2017-10-28] MEDS: GUAIFENESIN 600 MG TABLET.SA PO SCH (09:56)
[2017-10-28] MEDS: CHOLECALCIFEROL (D3) 1,000 UNIT TABLET PO SCH (09:57)
[2017-10-28] MEDS: LACTOBACILLUS ACIDOPHILUS 250 MG TAB PO SCH (09:57)
[2017-10-28] MEDS: MULTIVITAMIN TABLET PO SCH (09:57)
[2017-10-28] MEDS: LISINOPRIL 10 MG TABLET PO SCH (09:58)
[2017-10-28] MEDS: FAMOTIDINE 20 MG TABLET PO SCH (09:58)
[2017-10-28] MEDS: METOPROLOL SUCCINATE 25 MG TAB.SR.24H PO SCH (09:59)
[2017-10-28] MEDS ORDERED: TORSEMIDE 20 MG TABLET PO SCH (10:00)
[2017-10-28] MEDS: ENOXAPARIN SODIUM INJ 40 MG/0.4 ML DISP.SYRIN SUBCUT SCH (10:00)
[2017-10-28] MEDS ORDERED: FLUTICASONE/SALMETEROL DISKUS 250-50 MCG/DOSE IH SCH (10:00)
[2017-10-28] MEDS: DOCUSATE SODIUM 100 MG CAPSULE PO SCH (10:01)
--- NOTE | 2017-10-28 13:16 | PDOC PROGRESS REPORT ---
Subjective Progress Note for:: 10/28/17 Subjective:: he is without complaint Reason For Visit: ACUTE HYPOXIC RESPIRATORY FAILURE,LARGE LEFT-SIDED Physical Exam Vital Signs: Temp Pulse Resp BP Pulse Ox 98.1 F 101 H 18 127/79 H 95 10/28/17 11:06 10/28/17 11:06 10/28/17 11:06 10/28/17 11:06 10/28/17 11:06 Pulse Oximeter Continuous Start: 10/20/17 10: 36 Freq: RTQ4 Status: Complete Document 10/27/17 04:00 SFL (Rec: 10/27/17 05:05 SFL [email or web address]) Pulse Oximetry Assessment Oxygen Saturation (92-100) 96 Oxygen Delivery Method Room Air Equipment Usage Equipment in Use Continuous SpO2 Machine # 13 Pulse Oximeter Nocturnal Start: 10/25/17 17: 03 Freq: RTQ4 Status: Complete Document 10/26/17 00:00 SFL (Rec: 10/26/17 00:21 SFL [email or web address]) Nocturnal Pulse Oximetry Equipment Usage Equipment in Use Nocturnal Spo2 Charge Charge Now Oxygen Delivery Method (includes room Bi-pap air) O2 Sat by Pulse Oximetry (92-100) 96 Continuous Pulse Oximeter Set Up No Continuous SpO2 Discontinued No Continuous SpO2 Machine # xx Intake & Output 10/27/17 10/28/17 10/29/17 06:59 06:59 06:59 Intake Total 1038 1517 Balance 1038 1517 Weight 146.2 kg 146.4 kg General appearance: PRESENT: no acute distress, cooperative, disheveled, morbidly obese Head exam: PRESENT: atraumatic, normocephalic Eye exam: PRESENT: conjunctiva pale, EOMI. ABSENT: nystagmus, periorbital swelling, scleral icterus Mouth exam: PRESENT: moist, neck supple, tongue midline Neck exam: ABSENT: carotid bruit, JVD, lymphadenopathy, thyromegaly, tracheal deviation, tracheostomy Respiratory exam: PRESENT: decreased breath sounds, prolonged expiratory phas, rhonchi, unlabored. ABSENT: stridor, tachypnea Cardiovascular exam: PRESENT: RRR, +S1, +S2 Pulses: PRESENT: normal radial pulses GI/Abdominal exam: PRESENT: diminished bowel sounds, soft Extremities exam: ABSENT: calf tenderness, clubbing, joint swelling Musculoskeletal exam: PRESENT: deformity, dislocation Neurological exam: PRESENT: alert, awake Psychiatric exam: PRESENT: normal mood Skin exam: PRESENT: dry, warm Results Laboratory Results: 10/28/17 05:30 10/28/17 05:30 10/28/17 10/28/17 05:30 05:30 WBC 7.5 RBC 4.40 Hgb 12.3 L Hct 36.2 L MCV 82 MCH 28.0 MCHC 34.0 RDW 13.8 Plt Count 272 Seg Neutrophils % 61.9 Lymphocytes % 22.0 Monocytes % 12.0 Eosinophils % 3.3 Basophils % 0.8 Absolute Neutrophils 4.6 Absolute Lymphocytes 1.6 Absolute Monocytes 0.9 Absolute Eosinophils 0.2 Absolute Basophils 0.1 Sodium 139.7 Potassium 4.3 Chloride 94 L Carbon Dioxide 37 H Anion Gap 9 BUN 23 H Creatinine 1.12 Est GFR ( Amer) > 60 Est GFR (Non-Af Amer) > 60 Glucose 108 Calcium 8.8 Magnesium 2.3 10/20/17 05:36 NT-Pro-B Natriuret Pep 29 Impressions: Chest CT 10/19/17 08:04 IMPRESSION: Moderate-sized left pleural effusion Left lower lobe collapse and consolidation Mass along the left lateral costophrenic sulcus Fatty liver Bilateral intrarenal nonobstructive kidney stones. NORMAL CT OF THE ABDOMEN AND PELVIS WITH ORAL AND INTRAVENOUS CONTRAST. Abdomen/Pelvis CT 10/19/17 08:05 IMPRESSION: Moderate-sized left pleural effusion Left lower lobe collapse and consolidation Mass along the left lateral costophrenic sulcus Fatty liver Bilateral intrarenal nonobstructive kidney stones. NORMAL CT OF THE ABDOMEN AND PELVIS WITH ORAL AND INTRAVENOUS CONTRAST. Thoracentesis Ultrasound 10/19/17 12:11 IMPRESSION: SUCCESSFUL THORACENTESIS USING ULTRASOUND GUIDANCE. MUGA 10/20/17 08:00 IMPRESSION: NORMAL CARDIAC MUGA STUDY. NORMAL LEFT VENTRICULAR EJECTION FRACTION, 79%. Chest X-Ray 10/26/17 00:00 IMPRESSION: No evidence for pneumothorax post chest wall biopsy. Other findings as noted above Guidance Needle Placement CT 10/26/17 00:00 IMPRESSION: CT GUIDED BIOPSY OF THE LEFT ANTEROLATERAL CHEST WALL MASS/ HEMATOMA PERFORMED WITHOUT IMMEDIATE COMPLICATION. PATHOLOGY PENDING. Lung Biopsy CT 10/26/17 00:00 IMPRESSION: CT GUIDED BIOPSY OF THE LEFT ANTEROLATERAL CHEST WALL MASS/ HEMATOMA PERFORMED WITHOUT IMMEDIATE COMPLICATION. PATHOLOGY PENDING. Assessment & Plan - Diagnosis (1) Uncontrolled daytime somnolence Is this a current diagnosis for this admission?: Yes Plan: Will need to have a sleep study scheduled at the time of discharge (2) Sleeps in sitting position due to orthopnea Is this a current diagnosis for this admission?: Yes Plan: good EF per MUGA (3) Hypertension Qualifiers: Hypertension type: essential hypertension Qualified Code(s): I10 - Essential (primary) hypertension Is this a current diagnosis for this admission?: Yes (4) Hypoxia Is this a current diagnosis for this admission?: Yes Plan: Improving (5) Pleural effusion Is this a current diagnosis for this admission?: No Plan: thoracentesis result transudative (6) Pneumonia Qualifiers: Pneumonia type: due to unspecified organism Laterality: left Lung location: lower lobe of lung Qualified Code(s): J18.1 - Lobar pneumonia, unspecified organism Is this a current diagnosis for this admission?: No (7) Soft tissue mass Is this a current diagnosis for this admission?: Yes Plan: no malignant or atypical cells
--- NOTE | 2017-10-28 13:19 | PDOC PROGRESS REPORT ---
Subjective Progress Note for:: 10/27/17 Subjective:: without complaint Reason For Visit: ACUTE HYPOXIC RESPIRATORY FAILURE,LARGE LEFT-SIDED Physical Exam Vital Signs: Temp Pulse Resp BP Pulse Ox 98.3 F 105 H 18 117/69 93 10/27/17 07:37 10/27/17 08:04 10/27/17 08:04 10/27/17 07:37 10/27/17 08:04 Pulse Oximeter Continuous Start: 10/20/17 10: 36 Freq: RTQ4 Status: Complete Document 10/27/17 04:00 SFL (Rec: 10/27/17 05:05 SFL [email or web address]) Pulse Oximetry Assessment Oxygen Saturation (92-100) 96 Oxygen Delivery Method Room Air Equipment Usage Equipment in Use Continuous SpO2 Machine # 13 Pulse Oximeter Nocturnal Start: 10/25/17 17: 03 Freq: RTQ4 Status: Complete Document 10/26/17 00:00 SFL (Rec: 10/26/17 00:21 SFL [email or web address]) Nocturnal Pulse Oximetry Equipment Usage Equipment in Use Nocturnal Spo2 Charge Charge Now Oxygen Delivery Method (includes room Bi-pap air) O2 Sat by Pulse Oximetry (92-100) 96 Continuous Pulse Oximeter Set Up No Continuous SpO2 Discontinued No Continuous SpO2 Machine # xx Intake & Output 10/26/17 10/27/17 10/28/17 06:59 06:59 06:59 Intake Total 1961 1038 Balance 196 1038 Weight 146.2 kg General appearance: PRESENT: no acute distress, cooperative, disheveled, morbidly obese Head exam: PRESENT: atraumatic, normocephalic Eye exam: PRESENT: conjunctiva pale, EOMI. ABSENT: nystagmus, periorbital swelling, scleral icterus Mouth exam: PRESENT: moist, neck supple, tongue midline Neck exam: ABSENT: carotid bruit, JVD, lymphadenopathy, thyromegaly, tracheal deviation, tracheostomy Respiratory exam: PRESENT: decreased breath sounds, prolonged expiratory phas, rhonchi, unlabored. ABSENT: rales, retraction, stridor, tachypnea Cardiovascular exam: PRESENT: RRR, +S1, +S2 Pulses: PRESENT: normal radial pulses GI/Abdominal exam: PRESENT: diminished bowel sounds, soft Extremities exam: ABSENT: calf tenderness, clubbing Musculoskeletal exam: ABSENT: deformity, dislocation Neurological exam: PRESENT: alert, awake Psychiatric exam: PRESENT: normal mood Skin exam: PRESENT: dry, warm Results Laboratory Results: 10/27/17 05:12 10/27/17 05:12 10/27/17 10/27/17 05:12 05:12 WBC 7.9 RBC 4.66 Hgb 12.8 L Hct 38.7 MCV 83 MCH 27.6 MCHC 33.2 RDW 14.0 Plt Count 295 Seg Neutrophils % 62.3 Lymphocytes % 22.0 Monocytes % 12.4 Eosinophils % 2.5 Basophils % 0.8 Absolute Neutrophils 4.9 Absolute Lymphocytes 1.7 Absolute Monocytes 1.0 Absolute Eosinophils 0.2 Absolute Basophils 0.1 Sodium 139.8 Potassium 4.6 Chloride 93 L Carbon Dioxide 39 H Anion Gap 8 BUN 20 Creatinine 1.27 H Est GFR ( Amer) > 60 Est GFR (Non-Af Amer) 59 L Glucose 110 Calcium 9.3 Magnesium 2.2 10/20/17 05:36 NT-Pro-B Natriuret Pep 29 Impressions: Chest CT 10/19/17 08:04 IMPRESSION: Moderate-sized left pleural effusion Left lower lobe collapse and consolidation Mass along the left lateral costophrenic sulcus Fatty liver Bilateral intrarenal nonobstructive kidney stones. NORMAL CT OF THE ABDOMEN AND PELVIS WITH ORAL AND INTRAVENOUS CONTRAST. Abdomen/Pelvis CT 10/19/17 08:05 IMPRESSION: Moderate-sized left pleural effusion Left lower lobe collapse and consolidation Mass along the left lateral costophrenic sulcus Fatty liver Bilateral intrarenal nonobstructive kidney stones. NORMAL CT OF THE ABDOMEN AND PELVIS WITH ORAL AND INTRAVENOUS CONTRAST. Thoracentesis Ultrasound 10/19/17 12:11 IMPRESSION: SUCCESSFUL THORACENTESIS USING ULTRASOUND GUIDANCE. MUGA 10/20/17 08:00 IMPRESSION: NORMAL CARDIAC MUGA STUDY. NORMAL LEFT VENTRICULAR EJECTION FRACTION, 79%. Chest X-Ray 10/26/17 00:00 IMPRESSION: No evidence for pneumothorax post chest wall biopsy. Other findings as noted above Guidance Needle Placement CT 10/26/17 00:00 IMPRESSION: CT GUIDED BIOPSY OF THE LEFT ANTEROLATERAL CHEST WALL MASS/ HEMATOMA PERFORMED WITHOUT IMMEDIATE COMPLICATION. PATHOLOGY PENDING. Lung Biopsy CT 10/26/17 00:00 IMPRESSION: CT GUIDED BIOPSY OF THE LEFT ANTEROLATERAL CHEST WALL MASS/ HEMATOMA PERFORMED WITHOUT IMMEDIATE COMPLICATION. PATHOLOGY PENDING. Assessment & Plan - Diagnosis (1) Uncontrolled daytime somnolence Is this a current diagnosis for this admission?: Yes Plan: Will need to have a sleep study scheduled at the time of discharge (2) Sleeps in sitting position due to orthopnea Is this a current diagnosis for this admission?: Yes Plan: good EF per MUGA (3) Hypertension Qualifiers: Hypertension type: essential hypertension Qualified Code(s): I10 - Essential (primary) hypertension Is this a current diagnosis for this admission?: Yes (4) Hypoxia Is this a current diagnosis for this admission?: Yes Plan: Improving (5) Pleural effusion Is this a current diagnosis for this admission?: No Plan: thoracentesis result transudative (6) Pneumonia Qualifiers: Pneumonia type: due to unspecified organism Laterality: left Lung location: lower lobe of lung Qualified Code(s): J18.1 - Lobar pneumonia, unspecified organism Is this a current diagnosis for this admission?: No (7) Soft tissue mass Is this a current diagnosis for this admission?: Yes Plan: no malignant or atypical cells
--- NOTE | 2017-10-29 18:31 | PDOC DISCHARGE SUMMARY ---
General - Admit/Disc Date/PCP Admission Date/Primary Care Provider: 10/19/17 11:11 Discharge Date: 10/28/17 - Discharge Diagnosis (1) Pneumonia Is this a current diagnosis for this admission?: No (2) Acute respiratory failure Is this a current diagnosis for this admission?: Yes (3) Soft tissue mass Is this a current diagnosis for this admission?: Yes (4) Hypertension Is this a current diagnosis for this admission?: Yes (5) Morbid obesity with BMI of 45.0-49.9, adult Is this a current diagnosis for this admission?: Yes (6) Anasarca Is this a current diagnosis for this admission?: Yes - Additional Information Resuscitation Status: Full Code Discharge Diet: Cardiac Discharge Activity: Activity As Tolerated Prescriptions: Benzonatate [Tessalon Perles 100 mg Capsule] 100 mg PO Q8HP PRN #40 capsule PRN Reason: Fluticasone/Salmeterol [Advair 250-50 Diskus 14 Dose/Diskus] 1 inh IH Q12 1 Days #60 inhaler Guaifenesin [Mucinex Sr 600 mg Tablet.sa] 1,200 mg PO Q12 #120 tablet.sa Metoprolol Succinate [Toprol Xl 25 mg Tab.sr] 25 mg PO DAILY #30 tab.sr.24h Torsemide [Demadex 20 mg Tablet] 20 mg PO DAILY #30 tablet Home Medications: Aspirin [Ecotrin 81 mg EC Tablet] 81 mg PO DAILY 10/19/17 Cholecalciferol (Vitamin D3) [Vitamin D3] 2,000 unit PO DAILY 10/19/17 Lisinopril [Prinivil] 20 mg PO DAILY 10/19/17 Lovastatin [Mevacor] 40 mg PO DAILY 10/19/17 Multivitamin [Tab-A-Ana (Multiple Vitamin) Tablet] 1 tab PO DAILY 10/19/17 Benzonatate [Tessalon Perles 100 mg Capsule] 100 mg PO Q8HP PRN #40 capsule 09/12 Fluticasone/Salmeterol [Advair 250-50 Diskus 14 Dose/Diskus] 1 inh IH Q12 1 Days #60 inhaler 10/28/17 Guaifenesin [Mucinex Sr 600 mg Tablet.sa] 1,200 mg PO Q12 #120 tablet.sa Metoprolol Succinate [Toprol Xl 25 mg Tab.sr] 25 mg PO DAILY #30 tab.sr.24h 09/12 Torsemide [Demadex 20 mg Tablet] 20 mg PO DAILY #30 tablet 10/28/17 History of Present Illness History of Present Illness: NATALIE HERNANDEZ is a 57 year old male who presented to the ED with increasing shortness of breath and was preceded by multiple hospitalizations and courses of antibiotics and cough medicines. This time he presented the emergency room with increasing cough of productive yellow phlegm He was hypoxemic and was started on oxygen. He denied wearing oxygen routinely, any hemoptysis. His PPD is negative dates unknown. He had no history of chronic lung disease. As a child or adolescent he admitted to exposure to large amounts of passive smoke. 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 He has no pets and frequently travels around the [facility]. He denied angina-like chest pain. For the last 3 or 4 years he had been sleeping upright in a recliner. Chest x-ray showed a large left-sided pleural effusion. CAT scan of the chest abdomen and pelvis was done. A left-sided pleural-based mass was seen along with a large left pleural effusion and left lower lobe lung collapse. He also had leukocytosis. He was treated with Rocephin and azithromycin and referred to the hospitalist service for admission and management. Hospital Course Hospital Course: Patient was admitted under hospitalist service. He was placed on BiPAP and was weaned off to nasal cannula. By the time of discharge patient was oxygenated 100% on room air. Patient was treated for pneumonic process. Since CT scan on admission demonstrated a left-sided mass patient underwent CT-guided biopsy on September 26. Pathology report of the left sided mass demonstrated primarily a blood clot with no malignant cells. In addition of treating pneumonic process patient was placed on IV diuresis since had anasarca. This likely relate to pulmonary hypertension. MUGA an ejection fraction of 79%. We ordered an echocardiogram however was limited due to patient body habitus for the purpose to confirm pulmonary hypertension. At the time of discharge we prescribed a diuretic. Patient has been advised as to lifestyle modification including serious weight loss to improve his overall pulmonary status and well being. Patient is also recommended to follow up with pulmonary physician such as Dr. Wright for him to be further evaluated for sleep apnea. Patient travels throughout the [place] therefore limiting proper follow-up. I anticipate for him to present with bouts of respiratory failure. Since patient reported improvement and he was stable prompted to discharge Physical Exam Vital Signs: Temp Pulse Resp BP Pulse Ox 98.1 F 101 H 18 127/79 H 95 10/28/17 08:03 10/28/17 08:03 10/28/17 08:03 10/28/17 08:03 10/28/17 08:03 Pulse Oximeter Continuous Start: 10/20/17 10: 36 Freq: RTQ4 Status: Complete Document 10/27/17 04:00 SFL (Rec: 10/27/17 05:05 [email or web address] [email or web address]) Pulse Oximetry Assessment Oxygen Saturation (92-100) 96 Oxygen Delivery Method Room Air Equipment Usage Equipment in Use Continuous SpO2 Machine # 13 Pulse Oximeter Nocturnal Start: 10/25/17 17: 03 Freq: RTQ4 Status: Complete Document 10/26/17 00:00 SFL (Rec: 10/26/17 00:21 SFL [email or web address]) Nocturnal Pulse Oximetry Equipment Usage Equipment in Use Nocturnal Spo2 Charge Charge Now Oxygen Delivery Method (includes room Bi-pap air) O2 Sat by Pulse Oximetry (92-100) 96 Continuous Pulse Oximeter Set Up No Continuous SpO2 Discontinued No Continuous SpO2 Machine # xx Intake & Output 10/27/17 10/28/17 10/29/17 06:59 06:59 06:59 Intake Total 1038 1517 Balance 1038 1517 Weight 146.2 kg 146.4 kg General appearance: PRESENT: no acute distress, cooperative, morbidly obese Head exam: PRESENT: atraumatic, normocephalic Eye exam: PRESENT: conjunctiva pink, EOMI, PERRLA Ear exam: PRESENT: normal external ear exam Mouth exam: PRESENT: moist Neck exam: PRESENT: full ROM. ABSENT: JVD, lymphadenopathy, tenderness Respiratory exam: PRESENT: clear to auscultation brian, decreased breath sounds Cardiovascular exam: PRESENT: RRR. ABSENT: diastolic murmur, systolic murmur Vascular exam: PRESENT: normal capillary refill GI/Abdominal exam: PRESENT: normal bowel sounds, soft. ABSENT: tenderness Extremities exam: PRESENT: full ROM Musculoskeletal exam: PRESENT: ambulatory - #+ edema Neurological exam: PRESENT: alert, awake, oriented to person, oriented to place , oriented to time, oriented to situation, CN II-XII grossly intact Psychiatric exam: PRESENT: appropriate affect, normal mood Skin exam: PRESENT: other - Ecchymosis noted to left CV area Results Laboratory Results: 10/28/17 05:30 10/28/17 05:30 10/28/17 10/28/17 05:30 05:30 WBC 7.5 RBC 4.40 Hgb 12.3 L Hct 36.2 L MCV 82 MCH 28.0 MCHC 34.0 RDW 13.8 Plt Count 272 Seg Neutrophils % 61.9 Lymphocytes % 22.0 Monocytes % 12.0 Eosinophils % 3.3 Basophils % 0.8 Absolute Neutrophils 4.6 Absolute Lymphocytes 1.6 Absolute Monocytes 0.9 Absolute Eosinophils 0.2 Absolute Basophils 0.1 Sodium 139.7 Potassium 4.3 Chloride 94 L Carbon Dioxide 37 H Anion Gap 9 BUN 23 H Creatinine 1.12 Est GFR ( Amer) > 60 Est GFR (Non-Af Amer) > 60 Glucose 108 Calcium 8.8 Magnesium 2.3 10/20/17 05:36 NT-Pro-B Natriuret Pep 29 Impressions: Chest CT 10/19/17 08:04 IMPRESSION: Moderate-sized left pleural effusion Left lower lobe collapse and consolidation Mass along the left lateral costophrenic sulcus Fatty liver Bilateral intrarenal nonobstructive kidney stones. NORMAL CT OF THE ABDOMEN AND PELVIS WITH ORAL AND INTRAVENOUS CONTRAST. Abdomen/Pelvis CT 10/19/17 08:05 IMPRESSION: Moderate-sized left pleural effusion Left lower lobe collapse and consolidation Mass along the left lateral costophrenic sulcus Fatty liver Bilateral intrarenal nonobstructive kidney stones. NORMAL CT OF THE ABDOMEN AND PELVIS WITH ORAL AND INTRAVENOUS CONTRAST. Thoracentesis Ultrasound 10/19/17 12:11 IMPRESSION: SUCCESSFUL THORACENTESIS USING ULTRASOUND GUIDANCE. MUGA 10/20/17 08:00 IMPRESSION: NORMAL CARDIAC MUGA STUDY. NORMAL LEFT VENTRICULAR EJECTION FRACTION, 79%. Chest X-Ray 10/26/17 00:00 IMPRESSION: No evidence for pneumothorax post chest wall biopsy. Other findings as noted above Guidance Needle Placement CT 10/26/17 00:00 IMPRESSION: CT GUIDED BIOPSY OF THE LEFT ANTEROLATERAL CHEST WALL MASS/ HEMATOMA PERFORMED WITHOUT IMMEDIATE COMPLICATION. PATHOLOGY PENDING. Lung Biopsy CT 10/26/17 00:00 IMPRESSION: CT GUIDED BIOPSY OF THE LEFT ANTEROLATERAL CHEST WALL MASS/ HEMATOMA PERFORMED WITHOUT IMMEDIATE COMPLICATION. PATHOLOGY PENDING. Qualifiers - * PATIENT BEING DISCHARGED WITH ANY OF THE FOLLOWING DIAGNOSIS: No Plan Discharge Plan: Discharge home. Patient to follow-up with Dr. Wright as scheduled Time Spent: Less than 30 Minutes
--- NOTE | 2017-11-01 13:18 | PDOC PROGRESS REPORT ---
Subjective Progress Note for:: 10/29/17 Subjective:: without complaint Reason For Visit: ACUTE HYPOXIC RESPIRATORY FAILURE,LARGE LEFT-SIDED Physical Exam Vital Signs: Temp Pulse Resp BP Pulse Ox 98.1 F 101 H 18 127/79 H 95 10/28/17 11:06 10/28/17 11:06 10/28/17 11:06 10/28/17 11:06 10/28/17 11:06 Pulse Oximeter Continuous Start: 10/20/17 10: 36 Freq: RTQ4 Status: Complete Document 10/27/17 04:00 SFL (Rec: 10/27/17 05:05 SFL [email or web address]) Pulse Oximetry Assessment Oxygen Saturation (92-100) 96 Oxygen Delivery Method Room Air Equipment Usage Equipment in Use Continuous SpO2 Machine # 13 Pulse Oximeter Nocturnal Start: 10/25/17 17: 03 Freq: RTQ4 Status: Complete Document 10/26/17 00:00 SFL (Rec: 10/26/17 00:21 SFL [email or web address]) Nocturnal Pulse Oximetry Equipment Usage Equipment in Use Nocturnal Spo2 Charge Charge Now Oxygen Delivery Method (includes room Bi-pap air) O2 Sat by Pulse Oximetry (92-100) 96 Continuous Pulse Oximeter Set Up No Continuous SpO2 Discontinued No Continuous SpO2 Machine # xx General appearance: PRESENT: no acute distress, cooperative, disheveled, morbidly obese Head exam: PRESENT: atraumatic, normocephalic Eye exam: PRESENT: conjunctiva pale, EOMI. ABSENT: nystagmus, periorbital swelling, scleral icterus Mouth exam: PRESENT: dry mucosa, neck supple, tongue midline Neck exam: ABSENT: carotid bruit, JVD, lymphadenopathy, thyromegaly, tracheal deviation, tracheostomy Respiratory exam: PRESENT: decreased breath sounds, prolonged expiratory phas, rhonchi, unlabored. ABSENT: retraction, stridor, tachypnea Cardiovascular exam: PRESENT: RRR, +S1, +S2 Pulses: PRESENT: normal radial pulses GI/Abdominal exam: PRESENT: diminished bowel sounds, soft Extremities exam: ABSENT: clubbing, joint swelling Musculoskeletal exam: ABSENT: deformity, dislocation Neurological exam: PRESENT: alert, awake Psychiatric exam: PRESENT: normal mood Skin exam: PRESENT: dry, warm Results Laboratory Results: 10/28/17 05:30 10/28/17 05:30 10/20/17 05:36 NT-Pro-B Natriuret Pep 29 Impressions: Chest CT 10/19/17 08:04 IMPRESSION: Moderate-sized left pleural effusion Left lower lobe collapse and consolidation Mass along the left lateral costophrenic sulcus Fatty liver Bilateral intrarenal nonobstructive kidney stones. NORMAL CT OF THE ABDOMEN AND PELVIS WITH ORAL AND INTRAVENOUS CONTRAST. Abdomen/Pelvis CT 10/19/17 08:05 IMPRESSION: Moderate-sized left pleural effusion Left lower lobe collapse and consolidation Mass along the left lateral costophrenic sulcus Fatty liver Bilateral intrarenal nonobstructive kidney stones. NORMAL CT OF THE ABDOMEN AND PELVIS WITH ORAL AND INTRAVENOUS CONTRAST. Thoracentesis Ultrasound 10/19/17 12:11 IMPRESSION: SUCCESSFUL THORACENTESIS USING ULTRASOUND GUIDANCE. MUGA 10/20/17 08:00 IMPRESSION: NORMAL CARDIAC MUGA STUDY. NORMAL LEFT VENTRICULAR EJECTION FRACTION, 79%. Chest X-Ray 10/26/17 00:00 IMPRESSION: No evidence for pneumothorax post chest wall biopsy. Other findings as noted above Guidance Needle Placement CT 10/26/17 00:00 IMPRESSION: CT GUIDED BIOPSY OF THE LEFT ANTEROLATERAL CHEST WALL MASS/ HEMATOMA PERFORMED WITHOUT IMMEDIATE COMPLICATION. PATHOLOGY PENDING. Lung Biopsy CT 10/26/17 00:00 IMPRESSION: CT GUIDED BIOPSY OF THE LEFT ANTEROLATERAL CHEST WALL MASS/ HEMATOMA PERFORMED WITHOUT IMMEDIATE COMPLICATION. PATHOLOGY PENDING. Assessment & Plan - Diagnosis (1) Uncontrolled daytime somnolence Is this a current diagnosis for this admission?: Yes Plan: Will need to have a sleep study scheduled at the time of discharge (2) Sleeps in sitting position due to orthopnea Is this a current diagnosis for this admission?: Yes Plan: good EF per MUGA (3) Hypertension Qualifiers: Hypertension type: essential hypertension Qualified Code(s): I10 - Essential (primary) hypertension Is this a current diagnosis for this admission?: Yes (4) Hypoxia Is this a current diagnosis for this admission?: Yes Plan: Improving (5) Pleural effusion Is this a current diagnosis for this admission?: No Plan: thoracentesis result transudative (6) Pneumonia Qualifiers: Pneumonia type: due to unspecified organism Laterality: left Lung location: lower lobe of lung Qualified Code(s): J18.1 - Lobar pneumonia, unspecified organism Is this a current diagnosis for this admission?: No (7) Soft tissue mass Is this a current diagnosis for this admission?: Yes Plan: no malignant or atypical cells
== END 2017-10-28 12:00 | disposition home or self-care (01) | DRG 193 ==
LOC: ER 07:23 → EH 11:11 → 4W 23:00
PROVIDERS: ADMIT Internal Medicine; ATTEND Internal Medicine
PROC: 0W9B3ZX Drainage of Left Pleural Cavity, Percutaneous Approach, Diagnostic (ICD-10-PCS; principal; 2017-10-19)
PROC: 0WB83ZX Excision of Chest Wall, Percutaneous Approach, Diagnostic (ICD-10-PCS; 2017-10-26)
DX: J18.9 Pneumonia, unspecified organism (principal); J96.01 Acute respiratory failure with hypoxia; J91.8 Pleural effusion in other conditions classified elsewhere; Z68.42 Body mass index [BMI] 45.0-49.9, adult; J98.19 Other pulmonary collapse; I27.20 Pulmonary hypertension, unspecified; R22.2 Localized swelling, mass and lump, trunk; G47.30 Sleep apnea, unspecified; E78.5 Hyperlipidemia, unspecified; R60.1 Generalized edema; E66.01 Morbid (severe) obesity due to excess calories; I10 Essential (primary) hypertension; R40.0 Somnolence; Z87.891 Personal history of nicotine dependence; Z82.49 Family history of ischemic heart disease and other diseases of the circulatory system; Z88.0 Allergy status to penicillin
CPT/HCPCS: 32405; 32555; 36415; 36600; 71045; 71260; 74177; 77012; 78472; 80048; 80053; 80061; 80307; 81001; 82803; 82945; 83036; 83605; 83615; 83735; 83880; 84100; 84155; 84157; 84443; 84484; 85025; 85610; 85730; 87015; 87040; 87070; 87075; 87101; 87116; 87205; 87206; 88305; 88341; 88342; 89050; 93005; 93010; 94010; 94640; 94660; 94667; 94762; 94799; 96365; 96367; 99285; A9560; J0456; J0696; J1650; J1940; J2250; J3010; J3490; J7620; Q9969

== ENCOUNTER 2017-11-07 12:56 | Inpatient (IN) | payer BC ==
--- NOTE | 2017-11-07 13:52 | RADIOLOGY REPORT (SQ) ---
EXAM DESCRIPTION: CHEST SINGLE VIEW COMPLETED DATE/TIME: 11/07/2017 1:42 pm REASON FOR STUDY: sob COMPARISON: None. EXAM PARAMETERS: NUMBER OF VIEWS: One view. TECHNIQUE: Single frontal radiographic view of the chest acquired. RADIATION DOSE: NA LIMITATIONS: None. FINDINGS: LUNGS AND PLEURA: Near complete opacification of the left hemithorax. Right lung and pleu ral space are clear. MEDIASTINUM AND HILAR STRUCTURES: Stable. HEART AND VASCULAR STRUCTURES: Stable. BONES: No acute findings. HARDWARE: None in the chest. OTHER: No other significant finding. IMPRESSION: NEAR COMPLETE OPACIFICATION OF THE LEFT HEMITHORAX LIKELY COMBINATION OF PLEURAL EFFUSIO N, AIRSPACE DISEASE, AND POSSIBLY MASS. CORRELATE WITH RESULTS OF PRIOR BIOPSY. TECHNICAL DOCUMENTATION: JOB ID: [id number] [employer]- All Rights Reserved Reading location - IP/workstation name: [email or web address]
[2017-11-07 13:55] LABS: ABSOLUTE BASOPHILS # (AUTO) 0.1 10^3/uL (0.0-0.2); ABSOLUTE EOSINOPHILS # (AUTO) 0.1 10^3/uL (0.0-0.6); ABSOLUTE LYMPHOCYTES (AUTO) 1.5 10^3/uL (0.5-4.7); ABSOLUTE MONOCYTES (AUTO) 1.4 10^3/uL (0.1-1.4); ABSOLUTE NEUT (AUTO) 8.1 10^3/uL (1.7-8.2); BASOPHILS % (AUTO) 0.5 % (0-2); EOSINOPHILS % (AUTO) 0.6 % (0-6); HEMATOCRIT 37.8 % (37.9-51.0); HEMOGLOBIN 12.5 g/dL (13.5-17.0); LYMPHOCYTES % (AUTO) 13.1 % (13-45); MEAN CORPUSCULAR HEMOGLOBIN 27.1 pg (27.0-33.4); MEAN CORPUSCULAR VOLUME 82 fl (80-97); MONOCYTES % (AUTO) 12.8 % (3-13); PLATELET COUNT 356 10^3/uL (150-450); RED CELL DISTRIBUTION WIDTH 13.9 % (11.5-14.0); TOTAL CELLS COUNTED % (AUTO) 100 %; WHITE BLOOD COUNT 11.1 10^3/uL (4.0-10.5)
[2017-11-07 13:58] LABS: ALANINE AMINOTRANSFERASE 53 U/L (21-72); ALBUMIN 3.8 g/dL (3.5-5.0); ALKALINE PHOSPHATASE 101 U/L (38-126); ANION GAP 14 (5-19); ASPARTATE AMINO TRANSFERASE 26 U/L (17-59); BILIRUBIN,DIRECT 0.4 mg/dL (0.0-0.4); BILIRUBIN,TOTAL 0.4 mg/dL (0.2-1.3); BLOOD UREA NITROGEN 22 mg/dL (7-20); CALCIUM 9.2 mg/dL (8.4-10.2); CARBON DIOXIDE 35 mmol/L (22-30); CHLORIDE 93 mmol/L (98-107); CREATINE KINASE 77 U/L (55-170); GLUCOSE 109 mg/dL (75-110); POTASSIUM 4.2 mmol/L (3.6-5.0); SODIUM 141.8 mmol/L (137-145); TOTAL PROTEIN 7.2 g/dL (6.3-8.2)
[2017-11-07 14:04] LABS: INTERNATIONAL RATION (INR) 1.09; PROTHROMBIN TIME 14.7 SEC (11.4-15.4)
[2017-11-07 14:05] LABS: PARTIAL THROMBOPLASTIN TIME 37.1 SEC (23.5-35.8)
[2017-11-07 14:07] LABS: CREATINE KINASE MB 0.73 ng/mL (<4.55)
[2017-11-07 14:08] LABS: TROPONIN I < 0.012 ng/mL
--- NOTE | 2017-11-07 15:02 | RADIOLOGY REPORT (SQ) ---
EXAM DESCRIPTION: CT CHEST WITH COMPLETED DATE/TIME: 11/07/2017 2:46 pm REASON FOR STUDY: ?pleural effusion, SOB COMPARISON: 10/26/2017 TECHNIQUE: CT scan of the chest performed using helical scanning technique with dynamic intravenous contrast injection. Images reviewed with lung, soft tissue and bone windows. Reconstructed coronal and sagittal MPR images reviewed. All images stored on PACS. All CT scanners at this facility use dose modulation, iterative reconstruction, and/or weight based d osing when appropriate to reduce radiation dose to as low as reasonably achievable (ALARA). [facility]: Dose Right [facility]: CareDose [facility]: Dose Right [facility]: Teradose 4D [facility]: Snapjoy CONTRAST TYPE AND DOSE: 29 mL Isovue 370- low osmolar. RENAL FUNCTION: Creatinine measures 1.14 RADIATION DOSE: . LIMITATIONS: None. FINDINGS: LUNGS AND PLEURA: There has been interval increase in size of what is now a large left-jose miguel ed pleural effusion with resulting collapse of the majority of the left lung. A small portion of the left upper lobe remains aerated. Previously identified soft tissue mass involving the anterior lowe r chest wall/ cardiophrenic angle appears to decrease in size and now is fluid density presumably rep resenting of vault hematoma. No pneumothorax. HILAR AND MEDIASTINAL STRUCTURES: No identified masses or abnormal nodes. HEART AND VASCULAR STRUCTURES: No aneurysm or dissection. No central pulmonary emboli. No pericardi al effusion. HARDWARE: None in the chest. UPPER ABDOMEN: Partial visualization of right renal cyst and unchanged appearance of hepatic steatosi s. THYROID AND OTHER SOFT TISSUES: No masses. No adenopathy. BONES: No significant finding. OTHER: No other significant finding. IMPRESSION: INCREASE IN WHAT IS NOW A LARGE LEFT PLEURAL EFFUSION RESULTING IN COLLAPSE OF THE MAJOR ITY OF THE LEFT LUNG DETAILED ABOVE. PATIENT WOULD LIKELY BENEFIT FROM THORACENTESIS/ PLACEMENT O F CHEST TUBE. PREVIOUS IDENTIFIED SOFT TISSUE MASS LEFT LOWER ANTERIOR CHEST WALL/ CARDIO PHRENIC ANGLE HAS DECREAS ED IN SIZE AND IS NOW FLUID ATTENUATION LIKELY REPRESENTING A FALL TO BLOOD PRODUCTS. CORRELATE WITH PRIOR BIOPSY. TECHNICAL DOCUMENTATION: JOB ID: [id number] Quality ID # [id number]: Final reports with documentation of one or more dose reduction techniques (e.g., Au tomated exposure control, adjustment of the mA and/or kV according to patient size, use of iterative reconstruction technique) 2010 [employer]- All Rights Reserved Reading location - IP/workstation name: [email or web address]
--- NOTE | 2017-11-07 15:41 | ER Document Report ---
ED General - General Chief Complaint: Shortness Of Breath Stated Complaint: SHORTNESS OF BREATH Time Seen by Provider: 11/07/17 13:30 Notes: Patient is a 57-year-old male who is visiting [place] for work he was recently discharged about a week and a half ago for left pleural effusion with a soft tissue mass. Patient states that he was treated for pneumonia at that time. Patient states that he was discharged and he had a coughing fit and felt he pulled muscle he went to follow-up with his primary care was given pain medication but has not had much improvement and progressively worsening shortness of breath. Patient has a history of hypertension, sleep apnea. PCP: kristel TRAVEL OUTSIDE OF THE [place] IN LAST 30 DAYS: No - Related Data Allergies/Adverse Reactions: Penicillins Allergy (Verified 11/07/17 13:36) Past Medical History - Social History Smoking Status: Never Smoker Chew tobacco use (# tins/day): No Frequency of alcohol use: Occasional Drug Abuse: None Family History: CAD, Hyperlipidemia, Hypertension, Malignancy Patient has suicidal ideation: No Patient has homicidal ideation: No - Past Medical History Cardiac Medical History: Reports: Hx Hypercholesterolemia, Hx Hypertension Denies: Hx Atrial Fibrillation, Hx Pulmonary Embolism Pulmonary Medical History: Denies: Hx Asthma, Hx Intubation Neurological Medical History: Denies: Hx Seizures Endocrine Medical History: Denies: Hx Diabetes Mellitus Type 1, Hx Diabetes Mellitus Type 2, Hx Hyperthyroidism, Hx Hypothyroidism Renal/ Medical History: Reports: Hx Kidney Stones. Denies: Hx End Stage Renal Disease, Hx Peritoneal Dialysis Malignancy Medical History: Denies Hx Liver Cancer, Denies Hx Lung Cancer GI Medical History: Denies: Hx Cirrhosis, Hx Crohn's Disease, Hx Hepatitis, Hx Ulcerative Colitis Musculoskeltal Medical History: Denies Hx Fibromyalgia Psychiatric Medical History: Denies: Hx Dementia, Hx Depression Traumatic Medical History: Denies: Hx Gunshot Wound, Hx Traumatic Brain Injury Infectious Medical History: Denies: Hx Hepatitis, Hx HIV Past Surgical History: Reports: Hx Kidney (Renal Surgery) - stone removal Review of Systems - Review of Systems Constitutional: No symptoms reported Cardiovascular: No symptoms reported Respiratory: See HPI Gastrointestinal: No symptoms reported Musculoskeletal: No symptoms reported Skin: No symptoms reported Neurological/Psychological: No symptoms reported -: Yes All other systems reviewed and negative Physical Exam - Vital signs Vitals: Resp Pulse Ox 28 H 86 L 11/07/17 13:01 11/07/17 13:01 - Notes Notes: PHYSICAL EXAM GENERAL: Alert, interacts well. HEAD: Normocephalic, atraumatic. EYES: Pupils equal, round, and reactive to light. Extraocular movements intact. ENT: Oral mucosa moist, tongue midline. NECK: Full range of motion. Supple. Trachea midline. LUNGS: Diminished breath sounds in the left chest in all lung white. Right lung white clear without wheezes, rales, rhonchi. Patient taking short breath but spekaing in full sentences without dyspnea HEART: Regular rate and rhythm. No murmurs, gallops, or rubs. ABDOMEN: Soft, nondistended, nontender. No guarding, rebound, or rigidity.. Bowel sounds present in all 4 quadrants. EXTREMITIES: Moves all 4 extremities spontaneously. No edema, radial and dorsalis pedis pulses 2/4 bilaterally. No cyanosis. NEUROLOGICAL: Alert and oriented x4. Normal speech. PSYCH: Normal affect, normal mood. SKIN: Warm, dry, normal turgor. No rashes or lesions noted. Course - Re-evaluation Re-evalutation: 11/07/17 15:40 Patient is a 57-year-old male who is hemodynamically stable, no acute distress and afebrile. Patient is hypoxic requiring supplemental oxygen for hypoxia. Review of the chart shows concern patient has left-sided recurrence of his previous pleural effusion. no evidence of leukocytosis or anemia. Chemistry stable without evidence of electrolyte imbalance, concern for hepatic or renal insufficiency. Patient's x-ray with opacification of the left hemithorax. CT of the chest shows significant left pleural effusion with underlying mass. Review of pathology completed on previous admission shows inconclusive absence of any concern for malignancy. Patient to be admitted to Dr. Hill for thoracentesis tomorrow. Patient agrees with plan - Vital Signs Vital signs: Temp Pulse Resp BP Pulse Ox 99.4 F 19 121/84 96 11/07/17 13:07 11/07/17 13:31 11/07/17 13:31 11/07/17 13:31 - Laboratory Result Diagrams: 11/07/17 13:05 11/07/17 13:05 Laboratory results interpreted by me: 11/07/17 11/07/17 11/07/17 13:05 13:05 13:05 WBC 11.1 H Hgb 12.5 L Hct 37.8 L APTT 37.1 H Chloride 93 L Carbon Dioxide 35 H BUN 22 H Urine Ascorbic Acid 11/07/17 14:25 WBC Hgb Hct APTT Chloride Carbon Dioxide BUN Urine Ascorbic Acid 20 H Discharge - Discharge Clinical Impression: Pleural effusion, Hypoxia Condition: Stable Disposition: ADMITTED INPATIENT Admitting Provider: Kristel Unit Admitted: Telemetry
--- NOTE | 2017-11-07 16:41 | EKG REPORT ---
SEVERITY:- OTHERWISE NORMAL ECG - SINUS TACHYCARDIA : Confirmed by: Miles Young MD 07-Nov-2017 16:41:17
[2017-11-07 16:51] LABS: APPEARANCE,URINE SLIGHTLY-CLOUDY; BILIRUBIN,URINE NEGATIVE (NEGATIVE); COLOR,URINE YELLOW; GLUCOSE, URINE NEGATIVE (NEGATIVE); KETONES,URINE NEGATIVE (NEGATIVE); LEUKOCYTE ESTERASE,URINE NEGATIVE (NEGATIVE); NITRITE,URINE NEGATIVE (NEGATIVE); PROTEIN,URINE NEGATIVE (NEGATIVE); URINE SPECIFIC GRAVITY 1.016; UROBILINOGEN,URINE NEGATIVE mg/dL (<2.0)
[2017-11-07 17:08] LABS: ARTERIAL BLOOD BASE EXCESS 7.6 mmol/L; ARTERIAL BLOOD H2CO3 1.65 mmol/L (1.05-1.35); ARTERIAL BLOOD HCO3 34.1 mmol/L (20-26); ARTERIAL BLOOD O2 SATURATION 93.8 % (94-98); ARTERIAL BLOOD PCO2 54.7 mmHg (35-45); ARTERIAL BLOOD PH 7.41 (7.35-7.45); ARTERIAL BLOOD PO2 69.5 mmHg (80-100); ARTERIAL BLOOD TOTAL CO2 35.8 mmol/L (23-27)
[2017-11-07 17:09] LABS: ARTERIAL BLOOD FIO2 4L
[2017-11-07 17:29] LABS: FREE T4 (FREE THYROXINE) 1.39 ng/dL (0.78-2.19)
[2017-11-07 17:43] LABS: THYROID STIMULATING HORMONE 2.1 uIU/mL (0.47-4.68)
[2017-11-07] MEDS: IPRATROPIUM/ALBUTEROL 0.5-2.5 MG/3 ML AMPUL NEB SCH ×3 (17:44→23:04)
[2017-11-07 18:03] LABS: LIPASE 44.8 U/L (23-300); PHOSPHORUS 4.2 mg/dL (2.5-4.5); TOTAL PROTEIN 6.8 g/dL (6.3-8.2)
[2017-11-07] MEDS: NORMAL SALINE 1000 ML 1,000 ML IV PRN (18:54)
[2017-11-07] MEDS ORDERED: (PENDING PHARMACY ID) (Tramadol Hcl/Acetaminophen [Tramadol-Acetaminophn 37.5-325] 1 TAB) PO SCH (21:45)
[2017-11-07 22:06] LABS: URINE AMPHETAMINES SCREEN NEGATIVE; URINE BARBITURATES SCREEN NEGATIVE; URINE BENZODIAZEPINES SCREEN NEGATIVE; URINE COCAINE SCREEN NEGATIVE; URINE MARIJUANA (THC) SCREEN NEGATIVE; URINE METHADONE SCREEN NEGATIVE; URINE PHENCYCLIDINE SCREEN NEGATIVE
[2017-11-07] MEDS: GUAIFENESIN 600 MG TABLET.SA PO SCH (22:31)
[2017-11-07] MEDS: ATORVASTATIN CALCIUM 10 MG TABLET PO SCH (22:36)
[2017-11-07] MEDS: FLUTICASONE/SALMETEROL DISKUS 250-50 MCG/DOSE IH SCH (23:20)
[2017-11-07] MEDS ORDERED: FLUTICASONE/SALMETEROL DISKUS 250-50 MCG/DOSE IH ONE (23:30)
[2017-11-08] MEDS: IPRATROPIUM/ALBUTEROL 0.5-2.5 MG/3 ML AMPUL NEB SCH ×8 (01:42→23:27)
[2017-11-08] MEDS ORDERED: LIDOCAINE 0.5% INJ-PF (5 MG/ML) 50 ML SDV ONE (04:11)
--- NOTE | 2017-11-08 04:57 | PDOC CONSULTATION ---
Consultation Consult Date: 11/08/17 Consult reason:: Recurrent pleural effusion/hemothorax History of Present Illness Admission Date/PCP: 11/07/17 16:45 VASYL EDDY MD History of Present Illness: NATALIE HERNANDEZ is a 57 year old male with a history of a "lung mass" that is status post biopsy and recurrent bloody pleural effusion. Patient is having mild respiratory distress. He reports pain in his left chest with difficulty "catching his breath". His symptoms have been ongoing and progressing for the last week. Patient denies fevers and chills, abdominal pain, hematochezia or hematemesis. He does report left-sided chest pain, cough, shortness of breath. Nothing makes his symptoms better. Movement and coughing make his symptoms worse. Past Medical History Cardiac Medical History: Reports: Hyperlipidema, Hypertension Denies: Atrial Fibrillation, Pulmonary Embolism Pulmonary Medical History: Reports: Other - "Lung mass" status post biopsy Denies: Asthma, Intubation Neurological Medical History: Denies: Seizures Endocrine Medical History: Denies: Diabetes Mellitus Type 1, Diabetes Mellitus Type 2, Hyperthyroidism, Hypothyroidism Renal/ Medical History: Denies: End Stage Renal Disease Malignancy Medical History: Denies: Liver Cancer, Lung Cancer GI Medical History: Denies: Cirrhosis, Crohn's Disease, Hepatitis, Ulcerative Colitis Musculoskeltal Medical History: Denies: Fibromyalgia Psychiatric Medical History: Denies: Dementia, Depression Traumatic Medical History: Denies: Gunshot Wound, Traumatic Brain Injury Hematology: Denies: Hemophilia, Sickle Cell Disease Infectious Medical History: Denies: HIV Past Surgical History Past Surgical History: Reports: Other - CT-guided biopsy of lung mass Social History Smoking Status: Former Smoker Last Time Smoked: 20yr ago Frequency of Alcohol Use: Occasional Hx Recreational Drug Use: No Drugs: None Hx Prescription Drug Abuse: No - Advance Directive Resuscitation Status: Full Code Family History Family History: CAD, Hyperlipidemia, Hypertension, Malignancy Parental Family History Reviewed: Yes Children Family History Reviewed: Yes Sibling(s) Family History Reviewed.: Yes Medication/Allergy Home Medications: Aspirin [Ecotrin 81 mg EC Tablet] 81 mg PO DAILY 10/19/17 Cholecalciferol (Vitamin D3) [Vitamin D3] 2,000 unit PO DAILY 10/19/17 Lisinopril [Prinivil] 30 mg PO DAILY 10/19/17 Lovastatin [Mevacor] 40 mg PO DAILY 10/19/17 Multivitamin [Tab-A-Ana (Multiple Vitamin) Tablet] 1 tab PO DAILY 10/19/17 Benzonatate [Tessalon Perles 100 mg Capsule] 100 mg PO Q8HP PRN #40 capsule 09/12 Fluticasone/Salmeterol [Advair 250-50 Diskus 14 Dose/Diskus] 1 inh IH Q12 1 Days #60 inhaler 10/28/17 Guaifenesin [Mucinex Sr 600 mg Tablet.sa] 1,200 mg PO Q12 #120 tablet.sa Metoprolol Succinate [Toprol Xl 25 mg Tab.sr] 25 mg PO DAILY #30 tab.sr.24h 09/12 Torsemide [Demadex 20 mg Tablet] 20 mg PO DAILY #30 tablet 10/28/17 Tramadol HCl/Acetaminophen [Tramadol-Acetaminophn 37.5-325] 1 tab PO Q6H Allergies/Adverse Reactions: Penicillins Allergy (Verified 11/07/17 13:36) Review of Systems Constitutional: PRESENT: weakness. ABSENT: chills, fever(s) Eyes: ABSENT: visual disturbances Ears: ABSENT: hearing changes Nose, Mouth, and Throat: ABSENT: sore throat Cardiovascular: PRESENT: chest pain, dyspnea on exertion Respiratory: PRESENT: cough, dyspnea Gastrointestinal: ABSENT: abdominal pain, bloating, melena, nausea, vomiting Genitourinary: ABSENT: dysuria Musculoskeletal: PRESENT: back pain Integumentary: PRESENT: rash Neurological: ABSENT: abnormal movements, abnormal speech, confusion Psychiatric: PRESENT: anxiety. ABSENT: depression, hallucinations Endocrine: ABSENT: cold intolerance, heat intolerance Hematologic/Lymphatic: PRESENT: easy bruising. ABSENT: lymphadenopathy Physical Exam Vital Signs: Temp Pulse Resp BP Pulse Ox 98.9 F 102 H 22 H 124/69 93 11/08/17 03:21 11/08/17 03:21 11/08/17 03:21 11/08/17 03:21 11/08/17 03:21 Intake & Output 11/06/17 11/07/17 11/08/17 06:59 06:59 06:59 Intake Total 710 Output Total 100 Balance 610 Weight 148.1 kg General appearance: PRESENT: mild distress - Respiratory Head exam: PRESENT: atraumatic, normocephalic Eye exam: PRESENT: EOMI, PERRLA. ABSENT: conjunctival injection, scleral icterus Mouth exam: PRESENT: moist, neck supple Teeth exam: ABSENT: poor dentation Neck exam: ABSENT: lymphadenopathy, meningismus, tenderness, thyromegaly, tracheal deviation Respiratory exam: PRESENT: chest wall tenderness, decreased breath sounds - Left , tachypnea - Mild Cardiovascular exam: PRESENT: RRR Pulses: PRESENT: normal radial pulses Vascular exam: PRESENT: normal capillary refill. ABSENT: pallor GI/Abdominal exam: PRESENT: normal bowel sounds, soft. ABSENT: distended, firm , rigid, tenderness Rectal exam: PRESENT: deferred Extremities exam: ABSENT: joint swelling, tenderness Musculoskeletal exam: PRESENT: normal inspection. ABSENT: tenderness Neurological exam: PRESENT: alert, awake, oriented to person, oriented to place , oriented to time, CN II-XII grossly intact. ABSENT: motor sensory deficit Psychiatric exam: PRESENT: anxious. ABSENT: agitated, depressed Skin exam: ABSENT: cyanosis, erythema, jaundice Results Laboratory Results: 11/07/17 11/07/17 17:15 17:15 Phosphorus 4.2 Magnesium 2.0 Ammonia < 8.7 L Total Protein 6.8 Amylase 34 Lipase 44.8 11/07/17 11/07/17 11/08/17 17:15 17:15 00:16 Creatine Kinase 67 60 CK-MB (CK-2) 0.68 11/08/17 00:16 Creatine Kinase CK-MB (CK-2) 0.62 Impressions: Chest X-Ray 11/07/17 13:12 IMPRESSION: NEAR COMPLETE OPACIFICATION OF THE LEFT HEMITHORAX LIKELY COMBINATION OF PLEURAL EFFUSION, AIRSPACE DISEASE, AND POSSIBLY MASS. CORRELATE WITH RESULTS OF PRIOR BIOPSY. Chest CT 11/07/17 14:06 IMPRESSION: INCREASE IN WHAT IS NOW A LARGE LEFT PLEURAL EFFUSION RESULTING IN COLLAPSE OF THE MAJORITY OF THE LEFT LUNG DETAILED ABOVE. PATIENT WOULD LIKELY BENEFIT FROM THORACENTESIS/ PLACEMENT OF CHEST TUBE. PREVIOUS IDENTIFIED SOFT TISSUE MASS LEFT LOWER ANTERIOR CHEST WALL/ CARDIO PHRENIC ANGLE HAS DECREASED IN SIZE AND IS NOW FLUID ATTENUATION LIKELY REPRESENTING A FALL TO BLOOD PRODUCTS. CORRELATE WITH PRIOR BIOPSY. Assessment & Plan - Diagnosis (1) Pleural effusion Is this a current diagnosis for this admission?: Yes (2) Acute respiratory failure Qualifiers: Respiratory failure complication: unspecified whether with hypoxia or hypercapnia Qualified Code(s): J96.00 - Acute respiratory failure, unspecified whether with hypoxia or hypercapnia Is this a current diagnosis for this admission?: Yes - Plan Summary Plan Summary: This is a 57-year-old male with a history of a "lung mass". He is status post biopsy of this mass. He presents today with recurrence of a large pleural effusion. The patient does appear to be having mild respiratory distress and is oxygen dependent at this time. Saturations are 92% on 4 L. He has mild tachypnea. I have reviewed the patient's previous biopsy results and procedure notes. I have recommended thoracentesis as a way to rapidly reduce the volume of fluid within the left chest in a minimally invasive fashion. This will allow us time to plan more definitive care. The patient may benefit from evaluation by thoracic surgeon. Plan for urgent thoracentesis now. Will follow with further recommendations.
--- NOTE | 2017-11-08 05:03 | Operative Report ---
Nonrecallable Operative Report DATE OF SURGERY: 11/08/17 PREOPERATIVE DIAGNOSIS: Large left pleural effusion POSTOPERATIVE DIAGNOSIS: Large left bloody pleural effusion OPERATION: Ultrasound-guided thoracentesis of the left chest. SURGEON: KAILEY VIRK ANESTHESIA: Local TISSUE REMOVED OR ALTERED: 2 L of bloody pleural fluid COMPLICATIONS: Patient had a violent coughing fit during the procedure, necessitating early of the procedure. ESTIMATED BLOOD LOSS: Minimal PROCEDURE: Drains/implants: None. After informed consent was obtained from the patient, he was sat in the upright position in the hospital room. The ultrasound was used to identify a suitable place on the back for thoracentesis. Under direct ultrasonic guidance, a thoracentesis catheter was inserted over the rib and into the pleural space. Bloody pleural fluid was returned in the catheter. Approximately 2 L of thin bloody pleural fluid was removed from the patient. After the 2 L had been removed the patient had a violent coughing fit, and could not tolerate the procedure any further. The catheter was then removed from the patient under suction, and the procedure was concluded. Samples were sent to the lab for analysis. A dressing was fashioned. All sponge, instrument, and needle counts were correct x2. Condition: Fair.
--- NOTE | 2017-11-08 05:40 | RADIOLOGY REPORT (SQ) ---
EXAM DESCRIPTION: XR CHEST 1 VIEW CLINICAL HISTORY: 57 years Male, thorosentesis COMPARISON: One day prior. NUMBER OF VIEWS/TECHNIQUE: 1/AP FINDINGS: Moderate opacity-related effusion of the left lower hemithorax. Mildly enlarged cardiac silhouette. No pneumothorax. No acute bone defect. IMPRESSION: Interval improvement includes better aeration of the left lung.
[2017-11-08 05:56] LABS: FLUID COLOR RED; FLUID SOURCE LUNG; FLUID TYPE PLEURAL
[2017-11-08 05:57] LABS: FLUID VISCOSITY LIQUID
[2017-11-08 06:04] LABS: ABSOLUTE BASOPHILS # (AUTO) 0.1 10^3/uL (0.0-0.2); ABSOLUTE EOSINOPHILS # (AUTO) 0.1 10^3/uL (0.0-0.6); ABSOLUTE LYMPHOCYTES (AUTO) 1.2 10^3/uL (0.5-4.7); ABSOLUTE MONOCYTES (AUTO) 1.5 10^3/uL (0.1-1.4); ABSOLUTE NEUT (AUTO) 7.1 10^3/uL (1.7-8.2); BASOPHILS % (AUTO) 0.7 % (0-2); EOSINOPHILS % (AUTO) 0.6 % (0-6); HEMATOCRIT 34.9 % (37.9-51.0); HEMOGLOBIN 11.8 g/dL (13.5-17.0); LYMPHOCYTES % (AUTO) 11.7 % (13-45); MEAN CORPUSCULAR HEMOGLOBIN 27.6 pg (27.0-33.4); MEAN CORPUSCULAR HGB CONC 33.8 g/dL (32.0-36.0); MEAN CORPUSCULAR VOLUME 82 fl (80-97); PLATELET COUNT 325 10^3/uL (150-450); RED BLOOD COUNT 4.27 10^6/uL (4.35-5.55); RED CELL DISTRIBUTION WIDTH 14.1 % (11.5-14.0); TOTAL CELLS COUNTED % (AUTO) 100 %; WHITE BLOOD COUNT 9.9 10^3/uL (4.0-10.5)
[2017-11-08 06:31] LABS: BLOOD UREA NITROGEN 26 mg/dL (7-20); CALCIUM 9.1 mg/dL (8.4-10.2); CARBON DIOXIDE 35 mmol/L (22-30); CHOLESTEROL 154.63 mg/dL (0-200); CREATINE KINASE 56 U/L (55-170); GLUCOSE 122 mg/dL (75-110); LDH 541 U/L (313-618); POTASSIUM 4.3 mmol/L (3.6-5.0); SODIUM 137.3 mmol/L (137-145); TRIGLYCERIDES 69 mg/dL (<150)
[2017-11-08 06:33] LABS: ANION GAP 9 (5-19); CHLORIDE 93 mmol/L (98-107)
[2017-11-08 06:42] LABS: DIRECT LDL 94 mg/dL (<100)
[2017-11-08] MEDS: TRAMADOL HCL 50 MG TABLET PO PRN ×2 (06:58→13:04)
--- NOTE | 2017-11-08 09:24 | PDOC PROGRESS REPORT ---
Subjective Subjective:: Patient sitting in chair; still having some shortness of breath but improved Reason For Visit: LARGE LEFT PLEURAL EFFUSION Physical Exam Vital Signs: Temp Pulse Resp BP Pulse Ox 98.8 F 97 18 118/66 93 11/08/17 07:26 11/08/17 08:35 11/08/17 08:35 11/08/17 07:26 11/08/17 08:35 Intake & Output 11/07/17 11/08/17 11/09/17 06:59 06:59 06:59 Intake Total 1110 Output Total 1000 Balance 110 Weight 148.1 kg General appearance: PRESENT: mild distress Respiratory exam: PRESENT: other - Diminished breath sounds bilaterally. Results Laboratory Results: 11/08/17 05:29 11/08/17 05:29 11/07/17 11/07/17 11/08/17 17:15 17:15 04:30 WBC RBC Hgb Hct MCV MCH MCHC RDW Plt Count Seg Neutrophils % Lymphocytes % Monocytes % Eosinophils % Basophils % Absolute Neutrophils Absolute Lymphocytes Absolute Monocytes Absolute Eosinophils Absolute Basophils Sodium Potassium Chloride Carbon Dioxide Anion Gap BUN Creatinine Est GFR ( Amer) Est GFR (Non-Af Amer) Glucose Calcium Phosphorus 4.2 Magnesium 2.0 Ammonia < 8.7 L Total Protein 6.8 Triglycerides Cholesterol LDL Cholesterol Direct VLDL Cholesterol HDL Cholesterol Amylase 34 Lipase 44.8 Fluid Type PLEURAL Fluid Source LUNG Fluid Color RED Fluid Appearance Fluid Viscosity LIQUID Fluid WBC 765 Fluid RBC [id number] 11/08/17 11/08/17 05:29 05:29 WBC 9.9 RBC 4.27 L Hgb 11.8 L Hct 34.9 L MCV 82 MCH 27.6 MCHC 33.8 RDW 14.1 H Plt Count 325 Seg Neutrophils % 72.0 Lymphocytes % 11.7 L Monocytes % 15.0 H Eosinophils % 0.6 Basophils % 0.7 Absolute Neutrophils 7.1 Absolute Lymphocytes 1.2 Absolute Monocytes 1.5 H Absolute Eosinophils 0.1 Absolute Basophils 0.1 Sodium 137.3 Potassium 4.3 Chloride 93 L Carbon Dioxide 35 H Anion Gap 9 BUN 26 H Creatinine 1.05 Est GFR ( Amer) > 60 Est GFR (Non-Af Amer) > 60 Glucose 122 H Calcium 9.1 Phosphorus Magnesium Ammonia Total Protein Triglycerides 69 Cholesterol 154.63 LDL Cholesterol Direct 94 VLDL Cholesterol 14.0 HDL Cholesterol 36 L Amylase Lipase Fluid Type Fluid Source Fluid Color Fluid Appearance Fluid Viscosity Fluid WBC Fluid RBC 11/07/17 11/07/17 11/08/17 17:15 17:15 00:16 Creatine Kinase 67 60 CK-MB (CK-2) 0.68 11/08/17 11/08/17 11/08/17 00:16 05:29 05:29 Creatine Kinase 56 CK-MB (CK-2) 0.62 0.69 Impressions: Chest CT 11/07/17 14:06 IMPRESSION: INCREASE IN WHAT IS NOW A LARGE LEFT PLEURAL EFFUSION RESULTING IN COLLAPSE OF THE MAJORITY OF THE LEFT LUNG DETAILED ABOVE. PATIENT WOULD LIKELY BENEFIT FROM THORACENTESIS/ PLACEMENT OF CHEST TUBE. PREVIOUS IDENTIFIED SOFT TISSUE MASS LEFT LOWER ANTERIOR CHEST WALL/ CARDIO PHRENIC ANGLE HAS DECREASED IN SIZE AND IS NOW FLUID ATTENUATION LIKELY REPRESENTING A FALL TO BLOOD PRODUCTS. CORRELATE WITH PRIOR BIOPSY. Chest X-Ray 11/08/17 00:00 IMPRESSION: Interval improvement includes better aeration of the left lung. Assessment & Plan - Diagnosis (1) Pleural effusion Is this a current diagnosis for this admission?: Yes Plan: Impression: Recurrent left 0 sanguinous pleural effusion of unclear etiology, status post acute thoracentesis last p.m. with clinical improvement Recommendations: 1. Continue supportive therapy 2. Await analysis of left pleural fluid 3. Review imaging studies; provide feedback to team and patient as indicated.
[2017-11-08] MEDS: FLUTICASONE/SALMETEROL DISKUS 250-50 MCG/DOSE IH SCH ×2 (09:37→21:02)
[2017-11-08] MEDS: CHOLECALCIFEROL (D3) 1,000 UNIT TABLET PO SCH (09:37)
[2017-11-08] MEDS: GUAIFENESIN 600 MG TABLET.SA PO SCH ×2 (09:38→20:59)
[2017-11-08] MEDS: METOPROLOL SUCCINATE 25 MG TAB.SR.24H PO SCH (09:38)
[2017-11-08] MEDS: MULTIVITAMIN TABLET PO SCH (09:38)
[2017-11-08] MEDS: LISINOPRIL 10 MG TABLET PO SCH (09:39)
[2017-11-08] MEDS: TORSEMIDE 20 MG TABLET PO SCH (09:39)
[2017-11-08] MEDS: DOCUSATE SODIUM 100 MG CAPSULE PO SCH ×2 (09:41→17:05)
[2017-11-08] MEDS ORDERED: ENOXAPARIN SODIUM INJ 40 MG/0.4 ML DISP.SYRIN SUBCUT SCH (10:00)
[2017-11-08] MEDS ORDERED: ASPIRIN 81 MG TABLET, ENT COATED PO SCH (10:00)
[2017-11-08] MEDS: OXYCODONE-ACETAMINOPHEN 5-325 MG TABLET PO PRN ×3 (10:31→20:59)
[2017-11-08] MEDS: BENZONATATE 100 MG CAPSULE PO PRN (16:54)
[2017-11-08] MEDS: NORMAL SALINE 1000 ML 1,000 ML IV PRN (17:33)
--- NOTE | 2017-11-08 19:10 | PDOC H&P ---
History of Present Illness Admission Date/PCP: 11/07/17 16:45 VASYL EDDY MD History of Present Illness: NATALIE HERNANDEZ is a 57 year old male, He came to the emergency room for evaluation of shortness of breath, in the emergency room CT chest with contrast was done, it showed, a large left pleural effusion. Patient is new to my practice, he was recently seen in the office last week when he came to establish with us, he was admitted in this hospital on 10/23/2017, he was discharged on 10/28/2017 on that admission he presented to the emergency room with shortness of breath associated with cough of yellow sputum, was hypoxemic, he was treated with noninvasive positive pressure ventilation BiPAP CT scan of the chest at that time showed a left-sided mass which was pleural-based he underwent CT-guided biopsy on September 26, 2017 no malignant cells was identified,it showed primarily blood clot.Consultation was requested from surgery for chest tube placement but a thoracentesis was done, over 2 L of hemorrhagic fluid was collected Past Medical History Cardiac Medical History: Reports: Hyperlipidema, Hypertension Pulmonary Medical History: Reports: Other - "Lung mass" status post biopsy Endocrine Medical History: Reports: Obesity Past Surgical History Past Surgical History: Reports: Other - CT-guided biopsy of lung mass Social History Smoking Status: Former Smoker Last Time Smoked: 20yr ago Frequency of Alcohol Use: Occasional Hx Recreational Drug Use: No Drugs: None Hx Prescription Drug Abuse: No - Advance Directive Resuscitation Status: Full Code Family History Family History: CAD, Hyperlipidemia, Hypertension, Malignancy Parental Family History Reviewed: Yes Children Family History Reviewed: Yes Sibling(s) Family History Reviewed.: Yes Medication/Allergy Home Medications: Aspirin [Adult Low Dose Aspirin EC] 81 mg PO DAILY 11/08/17 Benzonatate [Tessalon Perle 100 mg Capsule] 100 mg PO Q8HP PRN 11/08/17 Cholecalciferol (Vitamin D3) [Vitamin D3 2000 unit Tablet] 2,000 unit PO DAILY 11/08/17 Fluticasone/Salmeterol [Advair 250-50 Diskus 28 dose] 1 puff IH Q12 11/08/17 Guaifenesin [Mucinex Sr 600 mg Tablet.sa] 1,200 mg PO Q12 11/08/17 Lisinopril [Zestril] 30 mg PO DAILY 11/08/17 Lovastatin 40 mg PO DAILY 11/08/17 Metoprolol Succinate [Toprol Xl 25 mg Tab.sr] 25 mg PO DAILY 11/08/17 Multivitamin [Multiple Vitamins] 1 tab PO DAILY 11/08/17 Torsemide [Demadex 20 mg Tablet] 20 mg PO DAILY 11/08/17 Tramadol HCl/Acetaminophen [Ultracet 37.5 mg/325 mg Tablet] 1 tab PO Q6HP PRN Allergies/Adverse Reactions: Penicillins Allergy (Verified 11/07/17 13:36) Review of Systems Constitutional: ABSENT: chills, fever(s), headache(s), weight gain, weight loss Eyes: ABSENT: visual disturbances Ears: ABSENT: hearing changes Cardiovascular: ABSENT: chest pain, dyspnea on exertion, edema, orthropnea, palpitations Respiratory: PRESENT: cough, dyspnea. ABSENT: hemoptysis Gastrointestinal: ABSENT: abdominal pain, constipation, diarrhea, hematemesis, hematochezia, nausea, vomiting Genitourinary: ABSENT: dysuria, hematuria Musculoskeletal: ABSENT: joint swelling Integumentary: ABSENT: rash, wounds Neurological: ABSENT: abnormal gait, abnormal speech, confusion, dizziness, focal weakness, syncope Psychiatric: ABSENT: anxiety, depression, homidical ideation, suicidal ideation Endocrine: ABSENT: cold intolerance, heat intolerance, menstrual abnormalities, polydipsia, polyuria Hematologic/Lymphatic: ABSENT: easy bleeding, easy bruising, lymphadenopathy Physical Exam Vital Signs: Temp Pulse Resp BP Pulse Ox 98.6 F 89 18 109/69 96 11/08/17 18:00 11/08/17 18:02 11/08/17 18:02 11/08/17 18:00 11/08/17 18:02 Intake & Output 11/07/17 11/08/17 11/09/17 06:59 06:59 06:59 Intake Total 1110 1460 Output Total 1000 Balance 110 1460 Weight 148.1 kg General appearance: PRESENT: mild distress, well-developed, well-nourished Head exam: PRESENT: atraumatic, normocephalic Eye exam: PRESENT: conjunctiva pink, EOMI, PERRLA Ear exam: PRESENT: normal external ear exam Mouth exam: PRESENT: moist, tongue midline Neck exam: PRESENT: full ROM Respiratory exam: PRESENT: decreased breath sounds Cardiovascular exam: PRESENT: RRR, +S1, +S2 Pulses: PRESENT: normal dorsalis pedis pul, +2 pedal pulses bilateral Vascular exam: PRESENT: normal capillary refill GI/Abdominal exam: PRESENT: normal bowel sounds, soft Rectal exam: PRESENT: deferred Neurological exam: PRESENT: alert, awake, oriented to person, oriented to place , oriented to time, oriented to situation, CN II-XII grossly intact Psychiatric exam: PRESENT: appropriate affect, normal mood Skin exam: PRESENT: dry, intact, warm Results Laboratory Results: 11/08/17 05:29 11/08/17 05:29 11/08/17 11/08/17 11/08/17 04:30 05:29 05:29 WBC 9.9 RBC 4.27 L Hgb 11.8 L Hct 34.9 L MCV 82 MCH 27.6 MCHC 33.8 RDW 14.1 H Plt Count 325 Seg Neutrophils % 72.0 Lymphocytes % 11.7 L Monocytes % 15.0 H Eosinophils % 0.6 Basophils % 0.7 Absolute Neutrophils 7.1 Absolute Lymphocytes 1.2 Absolute Monocytes 1.5 H Absolute Eosinophils 0.1 Absolute Basophils 0.1 Sodium 137.3 Potassium 4.3 Chloride 93 L Carbon Dioxide 35 H Anion Gap 9 BUN 26 H Creatinine 1.05 Est GFR ( Amer) > 60 Est GFR (Non-Af Amer) > 60 Glucose 122 H Calcium 9.1 Triglycerides 69 Cholesterol 154.63 LDL Cholesterol Direct 94 VLDL Cholesterol 14.0 HDL Cholesterol 36 L Fluid Type PLEURAL Fluid Source LUNG Fluid Color RED Fluid Appearance Fluid Viscosity LIQUID Fluid WBC 765 Fluid RBC [id number] 11/07/17 11/07/17 11/08/17 17:15 17:15 00:16 Creatine Kinase 67 60 CK-MB (CK-2) 0.68 11/08/17 11/08/17 11/08/17 00:16 05:29 05:29 Creatine Kinase 56 CK-MB (CK-2) 0.62 0.69 Impressions: Chest CT 11/07/17 14:06 IMPRESSION: INCREASE IN WHAT IS NOW A LARGE LEFT PLEURAL EFFUSION RESULTING IN COLLAPSE OF THE MAJORITY OF THE LEFT LUNG DETAILED ABOVE. PATIENT WOULD LIKELY BENEFIT FROM THORACENTESIS/ PLACEMENT OF CHEST TUBE. PREVIOUS IDENTIFIED SOFT TISSUE MASS LEFT LOWER ANTERIOR CHEST WALL/ CARDIO PHRENIC ANGLE HAS DECREASED IN SIZE AND IS NOW FLUID ATTENUATION LIKELY REPRESENTING A FALL TO BLOOD PRODUCTS. CORRELATE WITH PRIOR BIOPSY. Chest X-Ray 11/08/17 00:00 IMPRESSION: Interval improvement includes better aeration of the left lung. Assessment & Plan - Diagnosis (1) Recurrent left pleural effusion Is this a current diagnosis for this admission?: Yes Plan: He has recurrent hemorrhagic pleural effusion, etiology is not clear, he will be more diagnostic evaluation, bronchoscopy, consultation will be requested from pulmonary (2) Acute hypoxemic respiratory failure Is this a current diagnosis for this admission?: Yes (3) Morbid obesity Is this a current diagnosis for this admission?: Yes (4) Obstructive sleep apnea Is this a current diagnosis for this admission?: Yes
--- NOTE | 2017-11-08 19:16 | PDOC PROGRESS REPORT ---
Subjective Progress Note for:: 11/08/17 Subjective:: Patient was seen by the bedside, he has left hemothorax, He denies any trauma, he said he had a very powerful cough he believes that could be a factor in the etiology of the hemothorax,recurrent left pleural effusion, he was seen by the surgeon, chest tube placement is in the planning stage, etiology of the recurrent Hemorrhagic pleural effusion is not clear, consultation will be requested from pulmonary for input Reason For Visit: LARGE LEFT PLEURAL EFFUSION Physical Exam Vital Signs: Temp Pulse Resp BP Pulse Ox 98.6 F 89 18 109/69 96 11/08/17 18:00 11/08/17 18:02 11/08/17 18:02 11/08/17 18:00 11/08/17 18:02 Intake & Output 11/07/17 11/08/17 11/09/17 06:59 06:59 06:59 Intake Total 1110 1460 Output Total 1000 Balance 110 1460 Weight 148.1 kg General appearance: PRESENT: no acute distress Eye exam: PRESENT: PERRLA Respiratory exam: PRESENT: rhonchi Cardiovascular exam: PRESENT: +S1, +S2 GI/Abdominal exam: PRESENT: soft Neurological exam: PRESENT: alert Results Laboratory Results: 11/08/17 05:29 11/08/17 05:29 11/08/17 11/08/17 11/08/17 04:30 05:29 05:29 WBC 9.9 RBC 4.27 L Hgb 11.8 L Hct 34.9 L MCV 82 MCH 27.6 MCHC 33.8 RDW 14.1 H Plt Count 325 Seg Neutrophils % 72.0 Lymphocytes % 11.7 L Monocytes % 15.0 H Eosinophils % 0.6 Basophils % 0.7 Absolute Neutrophils 7.1 Absolute Lymphocytes 1.2 Absolute Monocytes 1.5 H Absolute Eosinophils 0.1 Absolute Basophils 0.1 Sodium 137.3 Potassium 4.3 Chloride 93 L Carbon Dioxide 35 H Anion Gap 9 BUN 26 H Creatinine 1.05 Est GFR ( Amer) > 60 Est GFR (Non-Af Amer) > 60 Glucose 122 H Calcium 9.1 Triglycerides 69 Cholesterol 154.63 LDL Cholesterol Direct 94 VLDL Cholesterol 14.0 HDL Cholesterol 36 L Fluid Type PLEURAL Fluid Source LUNG Fluid Color RED Fluid Appearance Fluid Viscosity LIQUID Fluid WBC 765 Fluid RBC [id number] 11/07/17 11/07/17 11/08/17 17:15 17:15 00:16 Creatine Kinase 67 60 CK-MB (CK-2) 0.68 11/08/17 11/08/17 11/08/17 00:16 05:29 05:29 Creatine Kinase 56 CK-MB (CK-2) 0.62 0.69 Impressions: Chest CT 11/07/17 14:06 IMPRESSION: INCREASE IN WHAT IS NOW A LARGE LEFT PLEURAL EFFUSION RESULTING IN COLLAPSE OF THE MAJORITY OF THE LEFT LUNG DETAILED ABOVE. PATIENT WOULD LIKELY BENEFIT FROM THORACENTESIS/ PLACEMENT OF CHEST TUBE. PREVIOUS IDENTIFIED SOFT TISSUE MASS LEFT LOWER ANTERIOR CHEST WALL/ CARDIO PHRENIC ANGLE HAS DECREASED IN SIZE AND IS NOW FLUID ATTENUATION LIKELY REPRESENTING A FALL TO BLOOD PRODUCTS. CORRELATE WITH PRIOR BIOPSY. Chest X-Ray 11/08/17 00:00 IMPRESSION: Interval improvement includes better aeration of the left lung. Assessment & Plan - Diagnosis (1) Recurrent left pleural effusion Is this a current diagnosis for this admission?: Yes (2) Acute hypoxemic respiratory failure Is this a current diagnosis for this admission?: Yes (3) Morbid obesity Is this a current diagnosis for this admission?: Yes (4) Obstructive sleep apnea Is this a current diagnosis for this admission?: Yes (5) Hemothorax, left Is this a current diagnosis for this admission?: Yes Plan: Consult pulmonary
[2017-11-08] MEDS: ATORVASTATIN CALCIUM 10 MG TABLET PO SCH (20:58)
--- NOTE | 2017-11-08 22:17 | XCELERA REPORT ---
[address] [address] Transthoracic Echocardiogram Report Name: NATALIE HERNANDEZ Age: 57 yrs Gender: Male : 1960 Patient Status: Inpatient Patient Location: [address] [place] [address] Study Date: 11/08/2017 09:58 AM Weight: 325 lb Procedure: A complete two-dimensional transthoracic echocardiogram was performed (2D, M-mode, spectral and color flow Doppler). The study was technically difficult with many images being suboptimal in quality. Reason For Study: ? pulmonary HTN Ordering Physician: VASYL EDDY Performed By: Elif Pacheco Interpretation Summary The study was technically difficult with many images being suboptimal in quality. The left ventricular ejection fraction is preserved. There is mild concentric left ventricular hypertrophy. The left ventricle is grossly normal size. Doppler measurements suggest impaired left ventricular relaxation, which is associated with grade I/IV or mild diastolic dysfunction Regional wall motion abnormalities cannot be excluded due to limited visualization. The right ventricle is mildly dilated. Right ventricular function cannot be assessed due to poor image quality. Borderline right atrial enlargement. Borderline left atrial enlargement. There is no mitral valve stenosis. There is a trace to mild amount of mitral regurgitation There is no aortic valve stenosis No aortic regurgitation is present. There is no tricuspid stenosis. No tricuspid regurgitation. The aortic root is not well visualized. The inferior vena cava was not well visualized There is no pericardial effusion. MMode/2D Measurements & Calculations RVDd: 2.8 cm LVIDd: 4.0 cm FS: 34.2 % Ao root diam: 3.3 cm IVSd: 1.2 cm LVIDs: 2.7 cm EDV(Teich): 71.6 ml Ao root area: 8.6 cm2 LVPWd: 1.2 cm ESV(Teich): 26.0 ml LA dimension: 3.7 cm EF(Teich): 63.7 % Doppler Measurements & Calculations MV E max erick: MV P1/2t max erick: Ao V2 max: LV V1 max P.7 cm/sec 77.9 cm/sec 169.9 cm/sec 6.0 mmHg MV A max erick: MV P1/2t: 59.5 msec Ao max PG: LV V1 max: 83.9 cm/sec MVA(P1/2t): 3.7 cm2 11.5 mmHg 122.8 cm/sec MV E/A: 0.84 MV dec slope: 383.6 cm/sec2 PA V2 max: 93.0 cm/sec PA max P.5 mmHg Left Ventricle The left ventricle is grossly normal size. There is mild concentric left ventricular hypertrophy. The left ventricular ejection fraction is preserved. Doppler measurements suggest impaired left ventricular relaxation, which is associated with grade I/IV or mild diastolic dysfunction. Regional wall motion abnormalities cannot be excluded due to limited visualization. Right Ventricle The right ventricle is mildly dilated. Right ventricular function cannot be assessed due to poor image quality. Atria Borderline right atrial enlargement. Borderline left atrial enlargement. Interarterial septum not well visualized and not well dopplered. Cannot comment on ASD/PFO presence. Mitral Valve The mitral valve is not well visualized. There is no mitral valve stenosis. There is a trace to mild amount of mitral regurgitation. Aortic Valve The aortic valve is not well visualized secondary to technical limitations. There is no aortic valve stenosis. No aortic regurgitation is present. Tricuspid Valve The tricuspid valve is not well visualized secondary to technical limitations. There is no tricuspid stenosis. No tricuspid regurgitation. Pulmonic Valve The pulmonic valve is not well visualized. Great Vessels The aortic root is not well visualized. The inferior vena cava was not well visualized. Effusions There is no pericardial effusion. : VASYL EDDY > Nii Juarez
[2017-11-09] MEDS: OXYCODONE-ACETAMINOPHEN 5-325 MG TABLET PO PRN ×5 (00:33→21:33)
[2017-11-09] MEDS: IPRATROPIUM/ALBUTEROL 0.5-2.5 MG/3 ML AMPUL NEB SCH ×8 (02:13→22:31)
[2017-11-09 06:01] LABS: ABSOLUTE BASOPHILS # (AUTO) 0.1 10^3/uL (0.0-0.2); ABSOLUTE EOSINOPHILS # (AUTO) 0.3 10^3/uL (0.0-0.6); ABSOLUTE LYMPHOCYTES (AUTO) 1.6 10^3/uL (0.5-4.7); ABSOLUTE MONOCYTES (AUTO) 1.3 10^3/uL (0.1-1.4); ABSOLUTE NEUT (AUTO) 5.3 10^3/uL (1.7-8.2); BASOPHILS % (AUTO) 0.7 % (0-2); EOSINOPHILS % (AUTO) 3.4 % (0-6); HEMATOCRIT 34.8 % (37.9-51.0); HEMOGLOBIN 11.6 g/dL (13.5-17.0); LYMPHOCYTES % (AUTO) 18.9 % (13-45); MEAN CORPUSCULAR HEMOGLOBIN 27.4 pg (27.0-33.4); MEAN CORPUSCULAR HGB CONC 33.4 g/dL (32.0-36.0); MEAN CORPUSCULAR VOLUME 82 fl (80-97); MONOCYTES % (AUTO) 15.1 % (3-13); PLATELET COUNT 328 10^3/uL (150-450); RED BLOOD COUNT 4.25 10^6/uL (4.35-5.55); RED CELL DISTRIBUTION WIDTH 13.7 % (11.5-14.0); SEGMENTED NEUTROPHILS % (AUTO) 61.9 % (42-78); TOTAL CELLS COUNTED % (AUTO) 100 %; WHITE BLOOD COUNT 8.5 10^3/uL (4.0-10.5)
[2017-11-09 06:23] LABS: ANION GAP 8 (5-19); BLOOD UREA NITROGEN 22 mg/dL (7-20); CHLORIDE 91 mmol/L (98-107); GLUCOSE 116 mg/dL (75-110); SODIUM 139.3 mmol/L (137-145)
[2017-11-09 06:46] LABS: CARBON DIOXIDE 40 mmol/L (22-30)
[2017-11-09] MEDS: BENZONATATE 100 MG CAPSULE PO PRN ×2 (08:52→18:40)
[2017-11-09] MEDS: LISINOPRIL 10 MG TABLET PO SCH (10:04)
[2017-11-09] MEDS: FLUTICASONE/SALMETEROL DISKUS 250-50 MCG/DOSE IH SCH ×2 (10:04→21:30)
[2017-11-09] MEDS: CHOLECALCIFEROL (D3) 1,000 UNIT TABLET PO SCH (10:05)
[2017-11-09] MEDS: METOPROLOL SUCCINATE 25 MG TAB.SR.24H PO SCH (10:05)
[2017-11-09] MEDS: MULTIVITAMIN TABLET PO SCH (10:05)
[2017-11-09] MEDS: DOCUSATE SODIUM 100 MG CAPSULE PO SCH ×2 (10:05→17:27)
[2017-11-09] MEDS: TORSEMIDE 20 MG TABLET PO SCH (10:05)
[2017-11-09] MEDS: GUAIFENESIN 600 MG TABLET.SA PO SCH ×2 (10:05→21:32)
--- NOTE | 2017-11-09 10:51 | PDOC CONSULTATION ---
Consultation Consult Date: 11/09/17 Attending physician:: VASYL DEDY Consult reason:: dyspnea History of Present Illness Admission Date/PCP: 11/07/17 16:45 VASYL EDDY MD History of Present Illness: NATALIE HERNANDEZ is a 57 year old male known to [facility] after being 2 weeks status post discharge for hemorrhagic pleural effusion in the left lateral soft tissue mass. His effusion resolved mass was biopsied by Dr. Fawn Grover no specific pathology was elucidated. He went home was feeling well until about 3 days before admission to the clinic complaining increasing shortness of breath subsequently presented the emergency room where a massive left-sided pleural effusion was noted.. He underwent a thoracentesis please see surgical note. Cytology for his effusion on his past admission was also negative. He denies nausea vomiting fevers chills diarrhea runny nose sore throat he does complain of some intermittent chest pain along with shortness of breath and a significant cough that is nonproductive. He denies any hemoptysis. Past Medical History Cardiac Medical History: Reports: Hyperlipidema, Hypertension Denies: Atrial Fibrillation, Pulmonary Embolism Pulmonary Medical History: Reports: Other - "Lung mass" status post biopsy Denies: Asthma, Intubation Neurological Medical History: Denies: Seizures Endocrine Medical History: Reports: Obesity Denies: Diabetes Mellitus Type 1, Diabetes Mellitus Type 2, Hyperthyroidism, Hypothyroidism Renal/ Medical History: Denies: End Stage Renal Disease Malignancy Medical History: Denies: Liver Cancer, Lung Cancer GI Medical History: Denies: Cirrhosis, Crohn's Disease, Hepatitis, Ulcerative Colitis Musculoskeltal Medical History: Denies: Fibromyalgia Psychiatric Medical History: Denies: Dementia, Depression Traumatic Medical History: Denies: Gunshot Wound, Traumatic Brain Injury Hematology: Denies: Hemophilia, Sickle Cell Disease Infectious Medical History: Denies: HIV Past Surgical History Past Surgical History: Reports: Other - CT-guided biopsy of lung mass Social History Smoking Status: Former Smoker Cigarettes Packs Per Day: 1 Number of Years Smokin Last Time Smoked: 20yr ago Passive smoke exposure as: Both Frequency of Alcohol Use: Occasional Hx Recreational Drug Use: No Drugs: None Hx Prescription Drug Abuse: No Do you have pets?: No Have you had any respiratory illnesses as a child?: No Have you been exposed to any sick contacts recently?: No Have you had any recent respiratory illnesses?: No Have you travelled outside of [place] in the past 12 months?: No - Advance Directive Resuscitation Status: Full Code Family History Family History: CAD, Hyperlipidemia, Hypertension, Malignancy Parental Family History Reviewed: Yes Children Family History Reviewed: Yes Sibling(s) Family History Reviewed.: Yes Medication/Allergy Home Medications: Aspirin [Adult Low Dose Aspirin EC] 81 mg PO DAILY 11/08/17 Benzonatate [Tessalon Perle 100 mg Capsule] 100 mg PO Q8HP PRN 11/08/17 Cholecalciferol (Vitamin D3) [Vitamin D3 2000 unit Tablet] 2,000 unit PO DAILY 11/08/17 Fluticasone/Salmeterol [Advair 250-50 Diskus 28 dose] 1 puff IH Q12 11/08/17 Guaifenesin [Mucinex Sr 600 mg Tablet.sa] 1,200 mg PO Q12 11/08/17 Lisinopril [Zestril] 30 mg PO DAILY 11/08/17 Lovastatin 40 mg PO DAILY 11/08/17 Metoprolol Succinate [Toprol Xl 25 mg Tab.sr] 25 mg PO DAILY 11/08/17 Multivitamin [Multiple Vitamins] 1 tab PO DAILY 11/08/17 Torsemide [Demadex 20 mg Tablet] 20 mg PO DAILY 11/08/17 Tramadol HCl/Acetaminophen [Ultracet 37.5 mg/325 mg Tablet] 1 tab PO Q6HP PRN Allergies/Adverse Reactions: Penicillins Allergy (Verified 11/07/17 13:36) Review of Systems Constitutional: ABSENT: anorexia, fatigue, night sweats, weakness Eyes: ABSENT: visual disturbances Ears: ABSENT: hearing changes Nose, Mouth, and Throat: ABSENT: headache(s), sore throat Cardiovascular: PRESENT: dyspnea on exertion, orthropnea. ABSENT: edema, palpitations Respiratory: PRESENT: cough, dyspnea. ABSENT: hemoptysis Gastrointestinal: ABSENT: abdominal pain, bloating, coffee ground emesis, dysphagia, heartburn, hematemesis, hematochezia, melena Genitourinary: ABSENT: dysuria, hematuria Musculoskeletal: ABSENT: joint swelling Integumentary: ABSENT: pruritus, rash Neurological: ABSENT: abnormal gait, abnormal movements, abnormal speech, confusion, focal weakness, frequent falls, lack of coordination, memory loss Psychiatric: ABSENT: hallucinations, homidical ideation, suicidal ideation Endocrine: ABSENT: cold intolerance, heat intolerance, polydipsia, polyuria Hematologic/Lymphatic: ABSENT: easy bruising Physical Exam Vital Signs: Temp Pulse Resp BP Pulse Ox 99.1 F 87 18 122/64 97 11/09/17 04:18 11/09/17 07:00 11/09/17 04:36 11/09/17 04:18 11/09/17 04:36 Intake & Output 11/08/17 11/09/17 11/10/17 06:59 06:59 06:59 Intake Total 1110 2200 Output Total 1000 340 Balance 110 1860 Weight 148.1 kg 142.2 kg General appearance: PRESENT: no acute distress, cooperative, disheveled, morbidly obese Head exam: PRESENT: atraumatic, normocephalic Eye exam: PRESENT: conjunctiva pale, EOMI. ABSENT: nystagmus, periorbital swelling Mouth exam: PRESENT: dry mucosa, neck supple, tongue midline Neck exam: ABSENT: carotid bruit, JVD, lymphadenopathy, thyromegaly, tracheal deviation, tracheostomy Respiratory exam: PRESENT: chest wall tenderness, decreased breath sounds, prolonged expiratory phas, rales, rhonchi, unlabored. ABSENT: retraction, stridor Cardiovascular exam: PRESENT: RRR, +S1, +S2 Pulses: PRESENT: normal radial pulses GI/Abdominal exam: PRESENT: diminished bowel sounds, soft Extremities exam: PRESENT: full ROM. ABSENT: calf tenderness, clubbing, +1 edema Musculoskeletal exam: PRESENT: ambulatory, full ROM. ABSENT: deformity, dislocation Neurological exam: PRESENT: alert, awake Psychiatric exam: PRESENT: normal mood Skin exam: PRESENT: dry, warm Results Laboratory Results: 11/09/17 05:22 11/09/17 05:22 11/09/17 11/09/17 05:22 05:22 WBC 8.5 RBC 4.25 L Hgb 11.6 L Hct 34.8 L MCV 82 MCH 27.4 MCHC 33.4 RDW 13.7 Plt Count 328 Seg Neutrophils % 61.9 Lymphocytes % 18.9 Monocytes % 15.1 H Eosinophils % 3.4 Basophils % 0.7 Absolute Neutrophils 5.3 Absolute Lymphocytes 1.6 Absolute Monocytes 1.3 Absolute Eosinophils 0.3 Absolute Basophils 0.1 Sodium 139.3 Potassium 4.0 Chloride 91 L Carbon Dioxide 40 H* Anion Gap 8 BUN 22 H Creatinine 1.16 Est GFR ( Amer) > 60 Est GFR (Non-Af Amer) > 60 Glucose 116 H Calcium 9.0 11/07/17 11/07/17 11/08/17 17:15 17:15 00:16 Creatine Kinase 67 60 CK-MB (CK-2) 0.68 11/08/17 11/08/17 11/08/17 00:16 05:29 05:29 Creatine Kinase 56 CK-MB (CK-2) 0.62 0.69 Impressions: Chest CT 11/07/17 14:06 IMPRESSION: INCREASE IN WHAT IS NOW A LARGE LEFT PLEURAL EFFUSION RESULTING IN COLLAPSE OF THE MAJORITY OF THE LEFT LUNG DETAILED ABOVE. PATIENT WOULD LIKELY BENEFIT FROM THORACENTESIS/ PLACEMENT OF CHEST TUBE. PREVIOUS IDENTIFIED SOFT TISSUE MASS LEFT LOWER ANTERIOR CHEST WALL/ CARDIO PHRENIC ANGLE HAS DECREASED IN SIZE AND IS NOW FLUID ATTENUATION LIKELY REPRESENTING A FALL TO BLOOD PRODUCTS. CORRELATE WITH PRIOR BIOPSY. Chest X-Ray 11/08/17 00:00 IMPRESSION: Interval improvement includes better aeration of the left lung. Assessment & Plan - Diagnosis (1) Acute hypoxemic respiratory failure Is this a current diagnosis for this admission?: Yes Plan: Atelectasis significant due to left pleural effusion (2) Hemothorax, left Is this a current diagnosis for this admission?: Yes Plan: Recurrence of left hemithorax hemorrhagic pleural effusion. This is on his last admission this is also accompanied by subcutaneous ecchymosis in his left lateral chest wall he denies trauma to his chest wall. (3) Morbid obesity Is this a current diagnosis for this admission?: Yes Plan: Unchanged (4) Obstructive sleep apnea Is this a current diagnosis for this admission?: Yes (5) Recurrent left pleural effusion Is this a current diagnosis for this admission?: Yes
[2017-11-09] MEDS ORDERED: TUBERCULIN,PURIF.PROT.DERIV. 5 TU/0.1 ML TEST 1 ML VIAL ID ONE (11:00)
--- NOTE | 2017-11-09 11:09 | PDOC PROGRESS REPORT ---
Subjective Progress Note for:: 11/09/17 Reason For Visit: LARGE LEFT PLEURAL EFFUSION Physical Exam Vital Signs: Temp Pulse Resp BP Pulse Ox 98.8 F 106 H 16 113/57 L 97 11/09/17 08:50 11/09/17 08:50 11/09/17 08:50 11/09/17 08:50 11/09/17 08:50 Intake & Output 11/08/17 11/09/17 11/10/17 06:59 06:59 06:59 Intake Total 1110 2200 Output Total 1000 340 Balance 110 1860 Weight 148.1 kg 142.2 kg General appearance: PRESENT: no acute distress, cooperative Respiratory exam: PRESENT: clear to auscultation brian, other - diminished breath sounds on the Left Results Laboratory Results: 11/09/17 05:22 11/09/17 05:22 11/09/17 11/09/17 05:22 05:22 WBC 8.5 RBC 4.25 L Hgb 11.6 L Hct 34.8 L MCV 82 MCH 27.4 MCHC 33.4 RDW 13.7 Plt Count 328 Seg Neutrophils % 61.9 Lymphocytes % 18.9 Monocytes % 15.1 H Eosinophils % 3.4 Basophils % 0.7 Absolute Neutrophils 5.3 Absolute Lymphocytes 1.6 Absolute Monocytes 1.3 Absolute Eosinophils 0.3 Absolute Basophils 0.1 Sodium 139.3 Potassium 4.0 Chloride 91 L Carbon Dioxide 40 H* Anion Gap 8 BUN 22 H Creatinine 1.16 Est GFR ( Amer) > 60 Est GFR (Non-Af Amer) > 60 Glucose 116 H Calcium 9.0 11/07/17 11/07/17 11/08/17 17:15 17:15 00:16 Creatine Kinase 67 60 CK-MB (CK-2) 0.68 11/08/17 11/08/17 11/08/17 00:16 05:29 05:29 Creatine Kinase 56 CK-MB (CK-2) 0.62 0.69 Impressions: Chest CT 11/07/17 14:06 IMPRESSION: INCREASE IN WHAT IS NOW A LARGE LEFT PLEURAL EFFUSION RESULTING IN COLLAPSE OF THE MAJORITY OF THE LEFT LUNG DETAILED ABOVE. PATIENT WOULD LIKELY BENEFIT FROM THORACENTESIS/ PLACEMENT OF CHEST TUBE. PREVIOUS IDENTIFIED SOFT TISSUE MASS LEFT LOWER ANTERIOR CHEST WALL/ CARDIO PHRENIC ANGLE HAS DECREASED IN SIZE AND IS NOW FLUID ATTENUATION LIKELY REPRESENTING A FALL TO BLOOD PRODUCTS. CORRELATE WITH PRIOR BIOPSY. Chest X-Ray 11/08/17 00:00 IMPRESSION: Interval improvement includes better aeration of the left lung. Assessment & Plan - Diagnosis (1) Pleural effusion Is this a current diagnosis for this admission?: Yes (2) Recurrent left pleural effusion Is this a current diagnosis for this admission?: Yes - Plan Summary Plan Summary: A/ Large left pleural effusion, bloody Patient has a long hx of working in construction, oil refineries, and steel mill as well as smoking in the past. All these are risks factors for pulmonary of pleural malignancy. P/ My opinion is the the patient would be better served in a tertiary center with Thoracic Surgery capabilities. My understanding is that Dr. Wright is going to contact the Thoracic Surgery Service at [facility] for possible transfer, I agree with his decision I will sign off. Please, call us with questions.
[2017-11-09 13:42] LABS: TOTAL PROTEIN BODY FLUID 5.2 g/dL (.)
[2017-11-09] MEDS: TRAMADOL HCL 50 MG TABLET PO PRN (18:39)
[2017-11-09] MEDS: ATORVASTATIN CALCIUM 10 MG TABLET PO SCH (21:32)
--- NOTE | 2017-11-09 21:46 | PDOC PROGRESS REPORT ---
Subjective Progress Note for:: 11/09/17 Subjective:: He was seen by the bedside, there is no new complaints.He was admitted because of hemorrhagic pleural effusion, recurrent on the left side he was seen by pulmonary, further evaluation recommended Reason For Visit: LARGE LEFT PLEURAL EFFUSION Physical Exam Vital Signs: Temp Pulse Resp BP Pulse Ox 98.7 F 101 H 20 112/49 L 95 11/09/17 20:19 11/09/17 20:19 11/09/17 20:19 11/09/17 20:19 11/09/17 20:19 Intake & Output 11/08/17 11/09/17 11/10/17 06:59 06:59 06:59 Intake Total 1110 2200 778 Output Total 1000 340 520 Balance 110 1860 258 Weight 148.1 kg 142.2 kg General appearance: PRESENT: no acute distress Eye exam: PRESENT: PERRLA Respiratory exam: PRESENT: clear to auscultation brian Cardiovascular exam: PRESENT: +S1, +S2 GI/Abdominal exam: PRESENT: soft Results Laboratory Results: 11/09/17 05:22 11/09/17 05:22 11/08/17 11/09/17 11/09/17 04:30 05:22 05:22 WBC 8.5 RBC 4.25 L Hgb 11.6 L Hct 34.8 L MCV 82 MCH 27.4 MCHC 33.4 RDW 13.7 Plt Count 328 Seg Neutrophils % 61.9 Lymphocytes % 18.9 Monocytes % 15.1 H Eosinophils % 3.4 Basophils % 0.7 Absolute Neutrophils 5.3 Absolute Lymphocytes 1.6 Absolute Monocytes 1.3 Absolute Eosinophils 0.3 Absolute Basophils 0.1 Sodium 139.3 Potassium 4.0 Chloride 91 L Carbon Dioxide 40 H* Anion Gap 8 BUN 22 H Creatinine 1.16 Est GFR ( Amer) > 60 Est GFR (Non-Af Amer) > 60 Glucose 116 H Calcium 9.0 Fluid Glucose 90 Fluid Total Protein 5.2 Fluid LDH 663 11/07/17 11/07/17 11/08/17 17:15 17:15 00:16 Creatine Kinase 67 60 CK-MB (CK-2) 0.68 11/08/17 11/08/17 11/08/17 00:16 05:29 05:29 Creatine Kinase 56 CK-MB (CK-2) 0.62 0.69 Impressions: Chest CT 11/07/17 14:06 IMPRESSION: INCREASE IN WHAT IS NOW A LARGE LEFT PLEURAL EFFUSION RESULTING IN COLLAPSE OF THE MAJORITY OF THE LEFT LUNG DETAILED ABOVE. PATIENT WOULD LIKELY BENEFIT FROM THORACENTESIS/ PLACEMENT OF CHEST TUBE. PREVIOUS IDENTIFIED SOFT TISSUE MASS LEFT LOWER ANTERIOR CHEST WALL/ CARDIO PHRENIC ANGLE HAS DECREASED IN SIZE AND IS NOW FLUID ATTENUATION LIKELY REPRESENTING A FALL TO BLOOD PRODUCTS. CORRELATE WITH PRIOR BIOPSY. Chest X-Ray 11/08/17 00:00 IMPRESSION: Interval improvement includes better aeration of the left lung. Assessment & Plan - Diagnosis (1) Recurrent left pleural effusion Is this a current diagnosis for this admission?: Yes (2) Acute hypoxemic respiratory failure Is this a current diagnosis for this admission?: Yes (3) Morbid obesity Is this a current diagnosis for this admission?: Yes (4) Obstructive sleep apnea Is this a current diagnosis for this admission?: Yes (5) Hemothorax, left Is this a current diagnosis for this admission?: Yes
[2017-11-10] MEDS: IPRATROPIUM/ALBUTEROL 0.5-2.5 MG/3 ML AMPUL NEB SCH ×5 (02:13→20:09)
[2017-11-10] MEDS: OXYCODONE-ACETAMINOPHEN 5-325 MG TABLET PO PRN ×4 (03:56→19:20)
[2017-11-10 06:01] LABS: ABSOLUTE BASOPHILS # (AUTO) 0.1 10^3/uL (0.0-0.2); ABSOLUTE EOSINOPHILS # (AUTO) 0.2 10^3/uL (0.0-0.6); ABSOLUTE LYMPHOCYTES (AUTO) 1.1 10^3/uL (0.5-4.7); ABSOLUTE MONOCYTES (AUTO) 1.2 10^3/uL (0.1-1.4); ABSOLUTE NEUT (AUTO) 5.2 10^3/uL (1.7-8.2); BASOPHILS % (AUTO) 0.6 % (0-2); EOSINOPHILS % (AUTO) 3.1 % (0-6); HEMATOCRIT 33.9 % (37.9-51.0); HEMOGLOBIN 11.3 g/dL (13.5-17.0); LYMPHOCYTES % (AUTO) 14.2 % (13-45); MEAN CORPUSCULAR HEMOGLOBIN 27.1 pg (27.0-33.4); MEAN CORPUSCULAR HGB CONC 33.3 g/dL (32.0-36.0); MEAN CORPUSCULAR VOLUME 81 fl (80-97); MONOCYTES % (AUTO) 15.5 % (3-13); PLATELET COUNT 327 10^3/uL (150-450); RED BLOOD COUNT 4.16 10^6/uL (4.35-5.55); RED CELL DISTRIBUTION WIDTH 13.9 % (11.5-14.0); SEGMENTED NEUTROPHILS % (AUTO) 66.6 % (42-78); TOTAL CELLS COUNTED % (AUTO) 100 %; WHITE BLOOD COUNT 7.8 10^3/uL (4.0-10.5)
[2017-11-10 06:16] LABS: ANION GAP 9 (5-19); BLOOD UREA NITROGEN 19 mg/dL (7-20); CALCIUM 9.2 mg/dL (8.4-10.2); CARBON DIOXIDE 38 mmol/L (22-30); CHLORIDE 90 mmol/L (98-107); GLUCOSE 110 mg/dL (75-110); POTASSIUM 4.4 mmol/L (3.6-5.0); SODIUM 137.2 mmol/L (137-145)
[2017-11-10] MEDS ORDERED: ALBUTEROL SULFATE 0.083% NEB 2.5 MG/3 ML AMPUL NEB PRN (10:05)
--- NOTE | 2017-11-10 10:24 | PDOC PROGRESS REPORT ---
Subjective Progress Note for:: 11/10/17 Subjective:: Patient without complaints Reason For Visit: LARGE LEFT PLEURAL EFFUSION Physical Exam Vital Signs: Temp Pulse Resp BP Pulse Ox 98.6 F 103 H 18 125/67 95 11/10/17 07:37 11/10/17 08:28 11/10/17 08:28 11/10/17 07:37 11/10/17 08:28 Intake & Output 11/09/17 11/10/17 11/11/17 06:59 06:59 06:59 Intake Total 2200 1286 Output Total 340 520 Balance 1860 766 Weight 142.2 kg 148.2 kg General appearance: PRESENT: no acute distress, cooperative, disheveled, morbidly obese Head exam: PRESENT: atraumatic, normocephalic Eye exam: PRESENT: conjunctiva pale, EOMI. ABSENT: nystagmus, periorbital swelling, scleral icterus Mouth exam: PRESENT: moist, neck supple, tongue midline Neck exam: ABSENT: carotid bruit, JVD, lymphadenopathy, thyromegaly, tracheal deviation, tracheostomy Respiratory exam: PRESENT: decreased breath sounds, prolonged expiratory phas, rhonchi, unlabored. ABSENT: retraction, stridor Cardiovascular exam: PRESENT: RRR, +S1, +S2 Pulses: PRESENT: normal radial pulses GI/Abdominal exam: PRESENT: normal bowel sounds, soft Extremities exam: PRESENT: full ROM. ABSENT: calf tenderness, clubbing, joint swelling Musculoskeletal exam: PRESENT: full ROM. ABSENT: deformity, dislocation Neurological exam: PRESENT: alert, awake Psychiatric exam: PRESENT: normal mood Skin exam: PRESENT: dry, warm Results Laboratory Results: 11/10/17 05:34 11/10/17 05:34 11/08/17 11/10/17 11/10/17 04:30 05:34 05:34 WBC 7.8 RBC 4.16 L Hgb 11.3 L Hct 33.9 L MCV 81 MCH 27.1 MCHC 33.3 RDW 13.9 Plt Count 327 Seg Neutrophils % 66.6 Lymphocytes % 14.2 Monocytes % 15.5 H Eosinophils % 3.1 Basophils % 0.6 Absolute Neutrophils 5.2 Absolute Lymphocytes 1.1 Absolute Monocytes 1.2 Absolute Eosinophils 0.2 Absolute Basophils 0.1 Sodium 137.2 Potassium 4.4 Chloride 90 L Carbon Dioxide 38 H Anion Gap 9 BUN 19 Creatinine 1.00 Est GFR ( Amer) > 60 Est GFR (Non-Af Amer) > 60 Glucose 110 Calcium 9.2 Fluid Glucose 90 Fluid Total Protein 5.2 Fluid LDH 663 11/08/17 04:30 Pleural Fluid - Left Pleural Effusion AFB Smear Concentration - Final 11/08/17 04:30 Pleural Fluid - Left Pleural Effusion Acid Fast Bacilli Smear - Final 11/07/17 11/07/17 11/08/17 17:15 17:15 00:16 Creatine Kinase 67 60 CK-MB (CK-2) 0.68 11/08/17 11/08/17 11/08/17 00:16 05:29 05:29 Creatine Kinase 56 CK-MB (CK-2) 0.62 0.69 Impressions: Chest CT 11/07/17 14:06 IMPRESSION: INCREASE IN WHAT IS NOW A LARGE LEFT PLEURAL EFFUSION RESULTING IN COLLAPSE OF THE MAJORITY OF THE LEFT LUNG DETAILED ABOVE. PATIENT WOULD LIKELY BENEFIT FROM THORACENTESIS/ PLACEMENT OF CHEST TUBE. PREVIOUS IDENTIFIED SOFT TISSUE MASS LEFT LOWER ANTERIOR CHEST WALL/ CARDIO PHRENIC ANGLE HAS DECREASED IN SIZE AND IS NOW FLUID ATTENUATION LIKELY REPRESENTING A FALL TO BLOOD PRODUCTS. CORRELATE WITH PRIOR BIOPSY. Chest X-Ray 11/08/17 00:00 IMPRESSION: Interval improvement includes better aeration of the left lung. Assessment & Plan - Diagnosis (1) Acute hypoxemic respiratory failure Is this a current diagnosis for this admission?: Yes Plan: Status post thoracentesis with some improvement (2) Hemothorax, left Is this a current diagnosis for this admission?: Yes Plan: Recurrent event must consider malignancy tuberculosis benign asbestos-related pleural effusion as part of the differential diagnosis PPD is in place (3) Morbid obesity Is this a current diagnosis for this admission?: Yes Plan: Unchanged (4) Obstructive sleep apnea Is this a current diagnosis for this admission?: Yes (5) Recurrent left pleural effusion Is this a current diagnosis for this admission?: Yes
[2017-11-10] MEDS: CHOLECALCIFEROL (D3) 1,000 UNIT TABLET PO SCH (10:31)
[2017-11-10] MEDS: GUAIFENESIN 600 MG TABLET.SA PO SCH ×2 (10:32→21:21)
[2017-11-10] MEDS: FLUTICASONE/SALMETEROL DISKUS 250-50 MCG/DOSE IH SCH ×2 (10:32→21:24)
[2017-11-10] MEDS: TORSEMIDE 20 MG TABLET PO SCH (10:33)
[2017-11-10] MEDS: LISINOPRIL 10 MG TABLET PO SCH (10:34)
[2017-11-10] MEDS: METOPROLOL SUCCINATE 25 MG TAB.SR.24H PO SCH (10:34)
[2017-11-10] MEDS: MULTIVITAMIN TABLET PO SCH (10:35)
[2017-11-10] MEDS: DOCUSATE SODIUM 100 MG CAPSULE PO SCH ×2 (10:35→16:55)
[2017-11-10] MEDS: BENZONATATE 100 MG CAPSULE PO PRN (15:55)
--- NOTE | 2017-11-10 20:29 | PDOC DISCHARGE SUMMARY ---
General - Admit/Disc Date/PCP Admission Date/Primary Care Provider: 11/07/17 16:45 VASYL EDDY MD Discharge Date: 11/11/17 - Discharge Diagnosis (1) Recurrent left pleural effusion Is this a current diagnosis for this admission?: Yes (2) Acute hypoxemic respiratory failure Is this a current diagnosis for this admission?: Yes (3) Morbid obesity Is this a current diagnosis for this admission?: Yes (4) Obstructive sleep apnea Is this a current diagnosis for this admission?: Yes (5) Hemothorax, left Is this a current diagnosis for this admission?: Yes - Additional Information Resuscitation Status: Full Code Home Medications: Aspirin [Adult Low Dose Aspirin EC] 81 mg PO DAILY 11/08/17 Benzonatate [Tessalon Perle 100 mg Capsule] 100 mg PO Q8HP PRN 11/08/17 Cholecalciferol (Vitamin D3) [Vitamin D3 2000 unit Tablet] 2,000 unit PO DAILY 11/08/17 Fluticasone/Salmeterol [Advair 250-50 Diskus 28 dose] 1 puff IH Q12 11/08/17 Guaifenesin [Mucinex Sr 600 mg Tablet.sa] 1,200 mg PO Q12 11/08/17 Lisinopril [Zestril] 30 mg PO DAILY 11/08/17 Lovastatin 40 mg PO DAILY 11/08/17 Metoprolol Succinate [Toprol Xl 25 mg Tab.sr] 25 mg PO DAILY 11/08/17 Multivitamin [Multiple Vitamins] 1 tab PO DAILY 11/08/17 Torsemide [Demadex 20 mg Tablet] 20 mg PO DAILY 11/08/17 Tramadol HCl/Acetaminophen [Ultracet 37.5 mg/325 mg Tablet] 1 tab PO Q6HP PRN Physical Exam Vital Signs: Temp Pulse Resp BP Pulse Ox 99.2 F 95 20 126/63 H 97 11/10/17 15:34 11/10/17 15:34 11/10/17 15:34 11/10/17 15:34 11/10/17 15:34 Intake & Output 11/09/17 11/10/17 11/11/17 06:59 06:59 06:59 Intake Total 2200 1286 1496 Output Total 340 520 Balance 3613 262 7165 Weight 142.2 kg 148.2 kg Results Laboratory Results: 11/10/17 05:34 11/10/17 05:34 11/10/17 11/10/17 05:34 05:34 WBC 7.8 RBC 4.16 L Hgb 11.3 L Hct 33.9 L MCV 81 MCH 27.1 MCHC 33.3 RDW 13.9 Plt Count 327 Seg Neutrophils % 66.6 Lymphocytes % 14.2 Monocytes % 15.5 H Eosinophils % 3.1 Basophils % 0.6 Absolute Neutrophils 5.2 Absolute Lymphocytes 1.1 Absolute Monocytes 1.2 Absolute Eosinophils 0.2 Absolute Basophils 0.1 Sodium 137.2 Potassium 4.4 Chloride 90 L Carbon Dioxide 38 H Anion Gap 9 BUN 19 Creatinine 1.00 Est GFR ( Amer) > 60 Est GFR (Non-Af Amer) > 60 Glucose 110 Calcium 9.2 11/08/17 04:30 Pleural Fluid - Left Pleural Effusion Fungal Smear - Final 11/08/17 04:30 Pleural Fluid - Left Pleural Effusion Fungal Smear - Final 11/08/17 04:30 Pleural Fluid - Left Pleural Effusion AFB Smear Concentration - Final 11/08/17 04:30 Pleural Fluid - Left Pleural Effusion Acid Fast Bacilli Smear - Final 11/07/17 11/07/17 11/08/17 17:15 17:15 00:16 Creatine Kinase 67 60 CK-MB (CK-2) 0.68 11/08/17 11/08/17 11/08/17 00:16 05:29 05:29 Creatine Kinase 56 CK-MB (CK-2) 0.62 0.69 Impressions: Chest CT 11/07/17 14:06 IMPRESSION: INCREASE IN WHAT IS NOW A LARGE LEFT PLEURAL EFFUSION RESULTING IN COLLAPSE OF THE MAJORITY OF THE LEFT LUNG DETAILED ABOVE. PATIENT WOULD LIKELY BENEFIT FROM THORACENTESIS/ PLACEMENT OF CHEST TUBE. PREVIOUS IDENTIFIED SOFT TISSUE MASS LEFT LOWER ANTERIOR CHEST WALL/ CARDIO PHRENIC ANGLE HAS DECREASED IN SIZE AND IS NOW FLUID ATTENUATION LIKELY REPRESENTING A FALL TO BLOOD PRODUCTS. CORRELATE WITH PRIOR BIOPSY. Chest X-Ray 11/08/17 00:00 IMPRESSION: Interval improvement includes better aeration of the left lung.
--- NOTE | 2017-11-10 20:29 | PDOC PROGRESS REPORT ---
Subjective Progress Note for:: 11/10/17 Subjective:: Patient was seen by the bedside the CT surgeon office was called today to get appointment for him to see patient in the office. On ambulation he had a low oxygen saturation, he will need home oxygen on discharge Reason For Visit: LARGE LEFT PLEURAL EFFUSION Physical Exam Vital Signs: Temp Pulse Resp BP Pulse Ox 99.2 F 95 20 126/63 H 97 11/10/17 15:34 11/10/17 15:34 11/10/17 15:34 11/10/17 15:34 11/10/17 15:34 Intake & Output 11/09/17 11/10/17 11/11/17 06:59 06:59 06:59 Intake Total 2200 1286 1496 Output Total 340 520 Balance 2263 480 6799 Weight 142.2 kg 148.2 kg General appearance: PRESENT: no acute distress, well-developed, well-nourished Head exam: PRESENT: atraumatic, normocephalic Eye exam: PRESENT: conjunctiva pink, EOMI, PERRLA Ear exam: PRESENT: normal external ear exam Mouth exam: PRESENT: moist, tongue midline Neck exam: PRESENT: full ROM Respiratory exam: PRESENT: clear to auscultation brian Cardiovascular exam: PRESENT: RRR, +S1, +S2 Vascular exam: PRESENT: normal capillary refill GI/Abdominal exam: PRESENT: normal bowel sounds, soft Rectal exam: PRESENT: deferred Neurological exam: PRESENT: alert, awake, oriented to person, oriented to place , oriented to time, oriented to situation, CN II-XII grossly intact Psychiatric exam: PRESENT: appropriate affect, normal mood Skin exam: PRESENT: dry, intact, warm. ABSENT: cyanosis, rash Results Laboratory Results: 11/10/17 05:34 11/10/17 05:34 11/10/17 11/10/17 05:34 05:34 WBC 7.8 RBC 4.16 L Hgb 11.3 L Hct 33.9 L MCV 81 MCH 27.1 MCHC 33.3 RDW 13.9 Plt Count 327 Seg Neutrophils % 66.6 Lymphocytes % 14.2 Monocytes % 15.5 H Eosinophils % 3.1 Basophils % 0.6 Absolute Neutrophils 5.2 Absolute Lymphocytes 1.1 Absolute Monocytes 1.2 Absolute Eosinophils 0.2 Absolute Basophils 0.1 Sodium 137.2 Potassium 4.4 Chloride 90 L Carbon Dioxide 38 H Anion Gap 9 BUN 19 Creatinine 1.00 Est GFR ( Amer) > 60 Est GFR (Non-Af Amer) > 60 Glucose 110 Calcium 9.2 11/08/17 04:30 Pleural Fluid - Left Pleural Effusion Fungal Smear - Final 11/08/17 04:30 Pleural Fluid - Left Pleural Effusion Fungal Smear - Final 11/08/17 04:30 Pleural Fluid - Left Pleural Effusion AFB Smear Concentration - Final 11/08/17 04:30 Pleural Fluid - Left Pleural Effusion Acid Fast Bacilli Smear - Final 11/07/17 11/07/17 11/08/17 17:15 17:15 00:16 Creatine Kinase 67 60 CK-MB (CK-2) 0.68 11/08/17 11/08/17 11/08/17 00:16 05:29 05:29 Creatine Kinase 56 CK-MB (CK-2) 0.62 0.69 Impressions: Chest CT 11/07/17 14:06 IMPRESSION: INCREASE IN WHAT IS NOW A LARGE LEFT PLEURAL EFFUSION RESULTING IN COLLAPSE OF THE MAJORITY OF THE LEFT LUNG DETAILED ABOVE. PATIENT WOULD LIKELY BENEFIT FROM THORACENTESIS/ PLACEMENT OF CHEST TUBE. PREVIOUS IDENTIFIED SOFT TISSUE MASS LEFT LOWER ANTERIOR CHEST WALL/ CARDIO PHRENIC ANGLE HAS DECREASED IN SIZE AND IS NOW FLUID ATTENUATION LIKELY REPRESENTING A FALL TO BLOOD PRODUCTS. CORRELATE WITH PRIOR BIOPSY. Chest X-Ray 11/08/17 00:00 IMPRESSION: Interval improvement includes better aeration of the left lung. Assessment & Plan - Diagnosis (1) Recurrent left pleural effusion Is this a current diagnosis for this admission?: Yes (2) Acute hypoxemic respiratory failure Is this a current diagnosis for this admission?: Yes (3) Morbid obesity Is this a current diagnosis for this admission?: Yes (4) Obstructive sleep apnea Is this a current diagnosis for this admission?: Yes (5) Hemothorax, left Is this a current diagnosis for this admission?: Yes
[2017-11-10] MEDS: TRAMADOL HCL 50 MG TABLET PO PRN (21:21)
[2017-11-10] MEDS: ATORVASTATIN CALCIUM 10 MG TABLET PO SCH (21:21)
[2017-11-11] MEDS: OXYCODONE-ACETAMINOPHEN 5-325 MG TABLET PO PRN ×2 (03:41→08:49)
[2017-11-11] MEDS: IPRATROPIUM/ALBUTEROL 0.5-2.5 MG/3 ML AMPUL NEB SCH ×2 (08:35→14:04)
[2017-11-11] MEDS: FLUTICASONE/SALMETEROL DISKUS 250-50 MCG/DOSE IH SCH (09:43)
[2017-11-11] MEDS: BENZONATATE 100 MG CAPSULE PO PRN (09:44)
[2017-11-11] MEDS: GUAIFENESIN 600 MG TABLET.SA PO SCH (09:44)
[2017-11-11] MEDS: LISINOPRIL 10 MG TABLET PO SCH (09:44)
[2017-11-11] MEDS: MULTIVITAMIN TABLET PO SCH (09:45)
[2017-11-11] MEDS: METOPROLOL SUCCINATE 25 MG TAB.SR.24H PO SCH (09:45)
[2017-11-11] MEDS: TORSEMIDE 20 MG TABLET PO SCH (09:45)
[2017-11-11] MEDS: CHOLECALCIFEROL (D3) 1,000 UNIT TABLET PO SCH (09:45)
[2017-11-11] MEDS: DOCUSATE SODIUM 100 MG CAPSULE PO SCH (09:46)
--- NOTE | 2017-11-11 11:40 | PDOC PROGRESS REPORT ---
Subjective Progress Note for:: 11/11/17 Subjective:: Patient without complaints Reason For Visit: LARGE LEFT PLEURAL EFFUSION Physical Exam Vital Signs: Temp Pulse Resp BP Pulse Ox 98.6 F 100 17 116/55 L 97 11/11/17 04:00 11/11/17 04:01 11/11/17 04:01 11/11/17 04:00 11/11/17 04:01 Intake & Output 11/10/17 11/11/17 11/12/17 06:59 06:59 06:59 Intake Total 1286 1506 Output Total 520 Balance 766 1506 Weight 148.2 kg General appearance: PRESENT: no acute distress, cooperative, disheveled, morbidly obese Head exam: PRESENT: atraumatic, normocephalic Eye exam: PRESENT: conjunctiva pale, EOMI, PERRLA. ABSENT: nystagmus, periorbital swelling, scleral icterus Mouth exam: PRESENT: moist, neck supple, tongue midline Neck exam: ABSENT: carotid bruit, JVD, lymphadenopathy, thyromegaly, tracheal deviation, tracheostomy Respiratory exam: PRESENT: decreased breath sounds, prolonged expiratory phas, rhonchi, unlabored, other - Left lateral chest wall ecchymosis and tenderness. ABSENT: stridor, tachypnea Cardiovascular exam: PRESENT: RRR, +S1, +S2 Pulses: PRESENT: normal radial pulses GI/Abdominal exam: PRESENT: normal bowel sounds, soft Extremities exam: ABSENT: calf tenderness, clubbing, joint swelling Musculoskeletal exam: ABSENT: deformity, dislocation Neurological exam: PRESENT: alert, awake Psychiatric exam: PRESENT: normal mood Skin exam: PRESENT: dry, warm Results Laboratory Results: 11/10/17 05:34 11/10/17 05:34 11/08/17 04:30 Pleural Fluid - Left Pleural Effusion Fungal Smear - Final 11/08/17 04:30 Pleural Fluid - Left Pleural Effusion Fungal Smear - Final 11/08/17 04:30 Pleural Fluid - Left Pleural Effusion AFB Smear Concentration - Final 11/08/17 04:30 Pleural Fluid - Left Pleural Effusion Acid Fast Bacilli Smear - Final 11/07/17 11/07/17 11/08/17 17:15 17:15 00:16 Creatine Kinase 67 60 CK-MB (CK-2) 0.68 05/14/18 05/14/18 05/14/18 00:16 05:29 05:29 Creatine Kinase 56 CK-MB (CK-2) 0.62 0.69 Impressions: Chest CT 11/07/17 14:06 IMPRESSION: INCREASE IN WHAT IS NOW A LARGE LEFT PLEURAL EFFUSION RESULTING IN COLLAPSE OF THE MAJORITY OF THE LEFT LUNG DETAILED ABOVE. PATIENT WOULD LIKELY BENEFIT FROM THORACENTESIS/ PLACEMENT OF CHEST TUBE. PREVIOUS IDENTIFIED SOFT TISSUE MASS LEFT LOWER ANTERIOR CHEST WALL/ CARDIO PHRENIC ANGLE HAS DECREASED IN SIZE AND IS NOW FLUID ATTENUATION LIKELY REPRESENTING A FALL TO BLOOD PRODUCTS. CORRELATE WITH PRIOR BIOPSY. Chest X-Ray 11/08/17 00:00 IMPRESSION: Interval improvement includes better aeration of the left lung. Assessment & Plan - Diagnosis (1) Acute hypoxemic respiratory failure Is this a current diagnosis for this admission?: Yes Plan: Status post thoracentesis (2) Hemothorax, left Is this a current diagnosis for this admission?: Yes Plan: Recurrent event must consider malignancy tuberculosis benign asbestos-related pleural effusion as part of the differential diagnosis PPD is in place (3) Morbid obesity Is this a current diagnosis for this admission?: Yes Plan: Unchanged (4) Obstructive sleep apnea Is this a current diagnosis for this admission?: Yes Plan: Needs a sleep study (5) Recurrent left pleural effusion Is this a current diagnosis for this admission?: Yes Plan: Second admission for male 57 years old denies trauma initially had a large left effusion with a soft tissue mass a lot of L lateral chest wall ecchymosis.His effusion was drained and found to be bloody the mass was biopsied and was found to be a clot: ecchymosis slowly resolved he was discharged home and returned with the exact same scenario the mass is not as pronounced but his ecchymosis has returned after almost disappearing and again he had a massive left-sided hemorrhagic pleural effusion.Discussed patient with surgeon who was about to put in a chest tube after discussion we both agreed best for the patient if he saw thoracic surgery and underwent a VATS 1) clear out any remaining effusion( clots or adhesion or loculations) 2)to do any biopsies if necessary and (3)if there is a direct source of bleeding for that to be evaluated as well patient is scheduled to see Dr. Jez Mabry thoracic surgery and [place], [place]
[2017-11-11 14:17] VITALS: BP 116/55
--- NOTE | 2017-11-11 19:53 | PDOC DISCHARGE SUMMARY ---
General - Admit/Disc Date/PCP Admission Date/Primary Care Provider: 11/07/17 16:45 VASYL EDDY MD Discharge Date: 11/11/17 - Discharge Diagnosis (1) Recurrent left pleural effusion Is this a current diagnosis for this admission?: Yes (2) Acute hypoxemic respiratory failure Is this a current diagnosis for this admission?: Yes (3) Morbid obesity Is this a current diagnosis for this admission?: Yes (4) Obstructive sleep apnea Is this a current diagnosis for this admission?: Yes (5) Hemothorax, left Is this a current diagnosis for this admission?: Yes - Additional Information Resuscitation Status: Full Code Discharge Diet: Cardiac Discharge Activity: Activity As Tolerated, Balance Activity w/Rest Home Medications: Aspirin [Adult Low Dose Aspirin EC] 81 mg PO DAILY 11/08/17 Benzonatate [Tessalon Perle 100 mg Capsule] 100 mg PO Q8HP PRN 11/08/17 Cholecalciferol (Vitamin D3) [Vitamin D3 2000 unit Tablet] 2,000 unit PO DAILY 11/08/17 Fluticasone/Salmeterol [Advair 250-50 Diskus 28 dose] 1 puff IH Q12 11/08/17 Guaifenesin [Mucinex Sr 600 mg Tablet.sa] 1,200 mg PO Q12 11/08/17 Lisinopril [Zestril] 30 mg PO DAILY 11/08/17 Lovastatin 40 mg PO DAILY 11/08/17 Metoprolol Succinate [Toprol Xl 25 mg Tab.sr] 25 mg PO DAILY 11/08/17 Multivitamin [Multiple Vitamins] 1 tab PO DAILY 11/08/17 Torsemide [Demadex 20 mg Tablet] 20 mg PO DAILY 11/08/17 Tramadol HCl/Acetaminophen [Ultracet 37.5 mg/325 mg Tablet] 1 tab PO Q6HP PRN History of Present Illness History of Present Illness: NATALIE HERNANDEZ is a 57 year old male, He came to the emergency room for evaluation of shortness of breath, in the emergency room CT chest with contrast was done, it showed, a large left pleural effusion. Patient is new to my practice, he was recently seen in the office last week when he came to establish with us, he was admitted in this hospital on 10/23/2017, he was discharged on 10/28/2017 on that admission he presented to the emergency room with shortness of breath associated with cough of yellow sputum, was hypoxemic, he was treated with noninvasive positive pressure ventilation BiPAP CT scan of the chest at that time showed a left-sided mass which was pleural-based he underwent CT-guided biopsy on September 26, 2017 no malignant cells was identified,it showed primarily blood clot.Consultation was requested from surgery for chest tube placement but a thoracentesis was done, over 2 L of hemorrhagic fluid was collected Hospital Course Hospital Course: It was felt that patient will need video-assisted thoracoscopy (VATS) patient presented in a similar fashion previously with shortness of breath associated with large left pleural effusion, he underwent thoracentesis on this admission, he had hemorrhagic pleural fluid, he had the same findings the last time he was admitted to the hospital, the last time he was admitted there was a lesion in the left pleural space that was felt to be a mass it was 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 matters that have potential to be carcinogenic he will need a video-assisted thoracoscopy this is done typically by CT surgeon, the service is not available in this hospital ,he was stabilized he was seen by the pulmonary doctor and the surgeon, it was initially felt that he needed a chest tube but the idea was dropped .He also has hypoxemia on mild exertion, he was discharged home on oxygen Physical Exam Vital Signs: Temp Pulse Resp BP Pulse Ox 98.2 F 111 H 18 116/55 L 88 L 11/11/17 14:15 11/11/17 14:15 11/11/17 14:15 11/11/17 14:15 11/11/17 14:15 Intake & Output 11/10/17 11/11/17 11/12/17 06:59 06:59 06:59 Intake Total 1286 1506 1018 Output Total 520 Balance 766 1506 1018 Weight 148.2 kg 148.2 kg General appearance: PRESENT: no acute distress, well-developed, well-nourished Head exam: PRESENT: atraumatic, normocephalic Eye exam: PRESENT: conjunctiva pink, EOMI, PERRLA Ear exam: PRESENT: normal external ear exam Mouth exam: PRESENT: moist, tongue midline Neck exam: PRESENT: full ROM Respiratory exam: PRESENT: clear to auscultation brian Cardiovascular exam: PRESENT: RRR Pulses: PRESENT: normal dorsalis pedis pul, +2 pedal pulses bilateral Vascular exam: PRESENT: normal capillary refill GI/Abdominal exam: PRESENT: normal bowel sounds, soft Rectal exam: PRESENT: deferred Neurological exam: PRESENT: alert, awake, oriented to person, oriented to place , oriented to time, oriented to situation, CN II-XII grossly intact Psychiatric exam: PRESENT: appropriate affect, normal mood Skin exam: PRESENT: dry, intact, warm. ABSENT: cyanosis, rash Results Laboratory Results: 11/10/17 05:34 11/10/17 05:34 11/07/17 11/07/17 11/08/17 17:15 17:15 00:16 Creatine Kinase 67 60 CK-MB (CK-2) 0.68 11/08/17 11/08/17 11/08/17 00:16 05:29 05:29 Creatine Kinase 56 CK-MB (CK-2) 0.62 0.69 Impressions: Chest CT 11/07/17 14:06 IMPRESSION: INCREASE IN WHAT IS NOW A LARGE LEFT PLEURAL EFFUSION RESULTING IN COLLAPSE OF THE MAJORITY OF THE LEFT LUNG DETAILED ABOVE. PATIENT WOULD LIKELY BENEFIT FROM THORACENTESIS/ PLACEMENT OF CHEST TUBE. PREVIOUS IDENTIFIED SOFT TISSUE MASS LEFT LOWER ANTERIOR CHEST WALL/ CARDIO PHRENIC ANGLE HAS DECREASED IN SIZE AND IS NOW FLUID ATTENUATION LIKELY REPRESENTING A FALL TO BLOOD PRODUCTS. CORRELATE WITH PRIOR BIOPSY. Chest X-Ray 11/08/17 00:00 IMPRESSION: Interval improvement includes better aeration of the left lung. Qualifiers - * PATIENT BEING DISCHARGED WITH ANY OF THE FOLLOWING DIAGNOSIS: No VTE patient discharged on overlapping Therapy?: Yes
== END 2017-11-11 14:33 | disposition home or self-care (01) | DRG 186 ==
LOC: ER 12:56 → UNDOADMIN 15:46 → EH 15:46 → 3S 20:47
PROVIDERS: ADMIT Internal Medicine; ATTEND Internal Medicine
PROC: 3E0F73Z Introduction of Anti-inflammatory into Respiratory Tract, Via Natural or Artificial Opening (ICD-10-PCS; 2017-11-07)
PROC: 0W9B3ZX Drainage of Left Pleural Cavity, Percutaneous Approach, Diagnostic (ICD-10-PCS; principal; 2017-11-08)
DX: J94.2 Hemothorax (principal); J96.01 Acute respiratory failure with hypoxia; Z68.42 Body mass index [BMI] 45.0-49.9, adult; G47.33 Obstructive sleep apnea (adult) (pediatric); E78.5 Hyperlipidemia, unspecified; I10 Essential (primary) hypertension; Z99.81 Dependence on supplemental oxygen; Z87.891 Personal history of nicotine dependence; Z57.39 Occupational exposure to other air contaminants
CPT/HCPCS: 36415; 71045; 71260; 80048; 80053; 80061; 80307; 81001; 82140; 82150; 82550; 82553; 82803; 82945; 83036; 83615; 83690; 83735; 83880; 84100; 84155; 84157; 84439; 84443; 84484; 85025; 85610; 85730; 87015; 87070; 87075; 87101; 87116; 87205; 87206; 88305; 89050; 93005; 93010; 93306; 99285; J1650; J3490; J7030; J7620

== ENCOUNTER → 2017-12-20 | Outpatient (CLI) | payer BC ==
[2017-12-22 17:36] LABS: CYTOPLASMIC (C-ANCA) <1:20 titer (Neg:<1:20)
[2017-12-23 07:22] LABS: ATYPICAL PANCA <1:20 titer (Neg:<1:20); PERINUCLEAR (P-ANCA) <1:20 titer (Neg:<1:20)
[2017-12-23 09:39] LABS: ANTICHROMATIN AB <0.2 AI (0.0-0.9); CENTROMERE B AB <0.2 AI (0.0-0.9); JO-1 ANTIBODY (ANACOMP) <0.2 AI (0.0-0.9); RNP AB <0.2 AI (0.0-0.9); SCLERODERMA-70 ANTIBODIES <0.2 AI (0.0-0.9); SJOGREN'S ANTI-SS-B AB <0.2 AI (0.0-0.9); SJOGREN'S SS-A ANTIBODY <0.2 AI (0.0-0.9); SMITH AB ANA <0.2 AI (0.0-0.9)
[2017-12-23 10:14] LABS: DNA DOUBLE STRAND ANTIBODY ANA 2 IU/mL (0-9)
== END ==
LOC: OD 16:46
PROVIDERS: ATTEND Physician Assistant
DX: R94.2 Abnormal results of pulmonary function studies (principal)
CPT/HCPCS: 36415; 86021; 86225; 86235; 86430

== ENCOUNTER → 2018-05-27 | Outpatient (CLI) | payer BC ==
--- NOTE | 2018-05-27 09:44 | RADIOLOGY REPORT (SQ) ---
EXAM DESCRIPTION: CT CHEST WITH COMPLETED DATE/TIME: 05/27/2018 9:18 am REASON FOR STUDY: MEDIASTINAL LYMPHADENOPATHY (R59.0) R59.0 LOCALIZED ENLARGED LYMPH NODES COMPARISON: CT chest dated 11/07/2017, chest x-ray dated 11/08/2017 TECHNIQUE: CT scan of the chest performed using helical scanning technique with dynamic intravenous contrast injection. Images reviewed with lung, soft tissue and bone windows. Reconstructed coronal and sagittal MPR and MIP images reviewed. All images stored on PACS. All CT scanners at this facility use dose modulation, iterative reconstruction, and/or weight based d osing when appropriate to reduce radiation dose to as low as reasonably achievable (ALARA). [facility]: Dose Right [facility]: CareDose [facility]: Dose Right [facility]: Teradose 4D [facility]: J[employer] CONTRAST TYPE AND DOSE: contrast/concentration: Isovue 350.00 mg/ml; Total Contrast Delivered: 80.0 ml; Total Saline Delivered: 55.0 ml RENAL FUNCTION: Creatinine 1.1 RADIATION DOSE: CT Rad equipment meets quality standard of care and radiation dose reduction techniq ues were employed. CTDIvol: 19.4 mGy. DLP: 697 mGy-cm. . LIMITATIONS: None. FINDINGS: LUNGS AND PLEURA: No opacities, nodules, masses. No pneumothorax. No effusions. HILAR AND MEDIASTINAL STRUCTURES: The patient has a prominence of mediastinal fat which is stable fro m prior study. No pathologic mediastinal or hilar adenopathy. HEART AND VASCULAR STRUCTURES: No aneurysm or dissection. No central pulmonary emboli. No pericardi al effusion. HARDWARE: None in the chest. UPPER ABDOMEN: There is fatty infiltration of the liver. THYROID AND OTHER SOFT TISSUES: No masses. No adenopathy. BONES: There are healed left-sided rib fractures. OTHER: No other significant finding. IMPRESSION: No acute findings in the chest. TECHNICAL DOCUMENTATION: JOB ID: [id number] Quality ID # [id number]: Final reports with documentation of one or more dose reduction techniques (e.g., Au tomated exposure control, adjustment of the mA and/or kV according to patient size, use of iterative reconstruction technique) 2010 [employer]- All Rights Reserved Reading location - IP/workstation name: [email or web address]
== END ==
LOC: RAD 08:39
PROVIDERS: ATTEND Physician Assistant
DX: R59.0 Localized enlarged lymph nodes (principal)
CPT/HCPCS: 71260; 82565